=== PATIENT | female | born 1995 | race Caucasian/White ===

== ENCOUNTER 2021-09-03 12:48 | Emergency (ER) | payer OTHER, SELFPAY ==
--- NOTE | ~2021-09-03 | XR_ITS ---
EXAMINATION: XR chest 2V EXAM DATE: 09/03/2021 13:19 INDICATION: Cough, congestion. TECHNIQUE: Frontal and lateral projections of the chest obtained and reviewed. There is no prior doreen dy for comparison. FINDINGS: The lungs are clear. There are no pleural effusions. The cardiomediastinal silhouette is within normal limits. There is no pneumothorax suspected. The bones and soft tissues are unremarkab le. IMPRESSION: Normal chest x-ray exam. Reviewed, dictated and finalized at location A. URE HANGER IMPRESSION: Normal chest x-ray exam.
[2021-09-03 13:04] VITALS: BP 131/93; PULSE 123; RESP 18; TEMP 36.9; O2SAT 98
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
== END 2021-09-03 14:10 | disposition home or self-care (01) ==
PROVIDERS: Emergency Provider Nurse Practitioner Family
DX: J06.9 Acute upper respiratory infection, unspecified (principal); F17.200 Nicotine dependence, unspecified, uncomplicated
CPT/HCPCS: 71046; 87804; 99203; G0463

== ENCOUNTER 2024-03-27 08:31 | Emergency (ER) | payer OTHER, SELFPAY ==
[2024-03-27 08:42] VITALS: BP 135/95; PULSE 105; RESP 18; TEMP 36.3; O2SAT 100
[2024-03-27 08:43] VITALS: BP 135/95; PULSE 105; RESP 18; TEMP 36.3; O2SAT 100
--- NOTE | 2024-03-27 08:54 | ED.DENTAL ---
HPI - Dental/Oral General Chief complaint: Dental/Oral Stated complaint: tooth infection/pain Source: patient and family (significant other ) Mode of arrival: ambulatory Limitations: no limitations History of Present Illness HPI Narrative: 28-year-old female presents to [facility] accompanied by her significant other for complaints of left upper tooth pain for the past 3 days. Patient reports that she broke her left upper tooth approximately 2 weeks ago. Patient has been taking [id number] ibuprofen with little relief. Patient reports history of dental issues but does not have a dentist currently. Patient denies fever, body aches, chills, nausea, vomiting or diarrhea MD Complaint: tooth pain Location: Tooth # (12) Onset (ago): day(s) (3) Exacerbating factors: chewing, cold, heat and drinking fluids Related Data Home Medications Medication Instructions Recorded Confirmed insulin glargine 100 unit/mL (3 20 unit subcut DIRECTED 09/03/21 09/03/21 mL) subcutaneous pen (Basaglar KwikPen U-100 Insulin) insulin NPH isoph U-100 human 100 unit subcut 03/27/24 unit/mL subcutaneous suspension (Humulin N NPH U-100 Insulin (isophane susp)) Allergies Allergy/AdvReac Type Severity Reaction Status Date / Time latex Allergy Mild RASH Verified 03/27/24 08:42 sulfamethoxazole Allergy Hives Verified 03/27/24 08:42 [From Bactrim] trimethoprim [From Bactrim] Allergy Hives Verified 03/27/24 08:42 Review of Systems Constitutional: Constitutional: Denies chills, Denies fatigue, Denies fever(s) and Denies weakness ENT: Denies vertigo, Denies dizziness, Denies epistaxis, Denies nasal congestion and Denies sore throat Comments: left upper tooth pain Cardiovascular: Cardiovascular: Denies chest pain Respiratory: Respiratory: Denies cough, Denies dyspnea and Denies wheezing Gastrointestinal: Gastrointestinal: Denies diarrhea, Denies nausea and Denies vomiting Integumentary/Breasts: Skin/Breast: Denies pruritus and Denies rash Neurologic: Denies syncope, Denies headache(s) and Denies focal weakness PMFSH Comments At time of signature, I agree with nursing past medical, surgical, social and family history. There is no relevant family history pertinent to the presenting complaint. Exam Const: General: healthy appearing and no acute distress Nutritional Appearance: well nourished Orientation/consciousness: patient oriented x3 Limitations: no limitations HENMT: Mouth: Yes lip normal and Yes moist mucous membranes Teeth and gingiva: abnormal tooth and associated gingiva Throat: posterior oropharynx normal and uvula midline Other: broken tooth noted to tooth # 12 with surrounding erythema and swelling noted. No obvious abscess noted. Mild swelling noted to left upper facial cheek Eyes: Conjunctivae: conjunctivae normal Pupils: Equal, round and reactive pupils present Neck: Neck: normal visual inspection Resp: Effort & Inspection: normal respiratory effort and not labored Auscultation: clear to auscultation bilaterally, no crackles, no rales, no rhonchi and no wheezes Cardio: Rate: regular rate Rhythm: regular rhythm Heart sounds: no murmurs Skin: General skin exam: normal color Rashes: no rashes Neuro: General: patient oriented x3 Speech: normal speech Psych: Affect: normal affect Attitude: cooperative Course Course Level of Care: Express Care Visit Vital Signs Vital signs: Vital Signs Temperature 36.3 C L 03/27/24 08:42 Pulse Rate 105 H 03/27/24 08:42 Respiratory Rate 18 03/27/24 08:42 Blood Pressure 135/95 H 03/27/24 08:42 Pulse Oximetry 100 03/27/24 08:42 Oxygen Delivery Room Air 03/27/24 08:42 Temperature 36.3 C L 03/27/24 08:43 Pulse Rate 105 H 03/27/24 08:43 Respiratory Rate 18 03/27/24 08:43 Blood Pressure 135/95 H 03/27/24 08:43 Pulse Oximetry 100 03/27/24 08:43 Oxygen Delivery Room Air 03/27/24 08:43 MDM - Dental
== END 2024-03-27 09:08 | disposition home or self-care (01) ==
PROVIDERS: Emergency Provider Nurse Practitioner Family
DX: K08.89 Other specified disorders of teeth and supporting structures (principal); E10.9 Type 1 diabetes mellitus without complications; F17.200 Nicotine dependence, unspecified, uncomplicated
CPT/HCPCS: 99213; G0463

== ENCOUNTER 2024-09-03 10:40 | Emergency (ER) | payer OTHER, SELFPAY ==
--- OUTSIDE RECORDS SUMMARY | 2024-09-03 10:57 | XMS_ITS | Clinical Summary ---
Author Organization [facility] Address [address] [place] [address] Care Team Providers Care Acid Loader Name Role Phone None, Physician Primary Care Provider Unavailabl e Source Comments [facility],non-owned Affiliates and Associated Physician Practices is amultiple site organization consisting of ambulatory clinics and hospital sitesin [place], [place], [place] and [place]. This disclosure is being madepursuant to the Care Everywhere program and may not contain all information available regarding this patient. Last updated 18.[facility] Allergies Active Allergy Reactions Criticality Noted Date Comments Latex Rash Medium 08/27/2016 Skin Adhesives Urticaria Medium 05/19/2022 Sulfamethoxazole W-Trimethoprim Urticaria Medium 05/14 Medications * Be aware that medications may not be up to date on this document. Alwaysverify current medications with the patient. Medication Sig Dispensed Refills Start Date End Date Status aspirin (Aspirin) 81 MG chew tablet Take 1 (one) tablet by mouth once daily 30 tablet 04/17/2023 Active busPIRone (Buspar) 10 MG tablet Take 1 (one) tablet by mouth 3 times daily 04/16/2023 Active hydrOXYzine HCl (Atarax) 25 MG tablet Take 1 (one) tablet by mouth 4 times daily as needed for Itching 04/16/2023 Active gabapentin (Neurontin) 100 MG capsule Take 2 (two) capsules by mouth 3 times daily 04/16/2023 Active insulin aspart (NovoLOG) pen Inject 0 (zero) Units to 12 (twelve) Units subcutaneously 3 times daily with meals 04/16/2023 Active insulin glargine (Lantus/Semglee) 100 units/mL pen Inject 20 (twenty) Units subcutaneously at bedtime 04/16/2023 Active hydroxyurea (Hydrea) 500 MG capsule Take 2 (two) capsules by mouth once daily 04/17/2023 Active folic acid (Folvite) 1 MG tablet Take 1 (one) tablet by mouth once daily 04/17/2023 Active melatonin 3 MG tablet Take 1 (one) tablet by mouth at bedtime 04/16/2023 Active predniSONE (Deltasone) 10 MG tablet Take 4 tablets daily for 3 days, take 3 tablets daily for 3 days, take 2 tablets daily for 3 days, then take 1 tablet daily for 3 days 0 04/16/2023 Active budesonide-formot jo (Symbicort) 160-4.5 MCG/ACT inhaler Inhale 2 (two) puffs by mouth 2 times daily 04/16/2023 Active albuterol HFA (ProAir HFA) 108 (90 Base) MCG/ACT inhaler Inhale 2 (two) puffs by mouth every 4 hours as needed for Shortness of Breath, Wheezing or Cough 8.5 g 04/16/2023 Active Oxygen Oxygen continuous at 3 L/min via nasal cannula and 3 L with activity. - Estimate length of need (number of months): 1 1 Each 04/16/2023 Active insulin glargine (Lantus/Semglee) 100 units/ml injection Inject 20 (twenty) Units subcutaneously at bedtime for 30 days 5 mL 1 09/16/2023 Active insulin aspart (NovoLOG FLEXPEN) pen Inject 12 (twelve) Units subcutaneously 3 times daily before meals 5 mL 1 09/16/2023 Active Active Problems Patient Care Coordination No te Formatting of this note migh t be different from the original. [employer] [place] [employer] form completed. Diapers given. 12/29/2019 Problem Noted Date Diagnosed Date Respiratory distress 04/01/2023 SOB (shortness of breath) 04/01/2023 Hypoxia 04/01/2023 Pneumonia of both lungs due to infectious organism, unspecified part of lung 04/01/2023 Preeclampsia, severe 02/15/2020 Swelling of lower extremity during in third trimester 02/13/2020 Nephropathy 01/18/2020 Chronic hypertension with superimposed pre-eclam psia 01/18/2020 Stage 1 chronic kidney disease 01/18/2020 Hx of preeclampsia, prior , currently p regnant 09/20/2019 Type 1 diabetes mellitus in 08/26/2016 Overview (03/18/2022): HgA1c: 11.8% 03/18/22 CMP: creatinine: 1.14, ALT/AST: /, glucose: 436 Protein/creatinine ratio: 1.34 Supervision of high-risk of young radha igravida 08/26/2016 Overview (03/25/2022): Dating: PNL: B+/Imm/-/-, HIV NR Pap: GC/CT: neg/neg. Scanned into media. Urine cx: neg UDS: H/H/P: 12.5/36.3/362 HgbE: Genetics: CF screen negative Anatomy US: Flu shot: LFT's: , 03/2022 HCV: NR Third trimester: GCT: H/H/P: RPR: HIV: Tdap: GBS: Poor growth Resolved Problems Problem Noted Date Diagnosed Date Resolved Date High risk teen 08/26/2016 Preeclampsia, severe 020 Forceps delivery 08/31/2019 Immunizations Name Administration Dates Next Due [employer] BIVALENT 12Y+ 30mcg/0.3ML 2 DTAP, HISTORIC VACCINE 01/08/2002,2000,03/04/2000,10/03,06/19/1999,1997 DTAP/IPV 02/07/2002, 0,10/04/1999,06/19 DTaP VACCINE IM (6wk-6yrs) 01/08/2002,,03/04/2000,10/03,06/19/1999,1997 FLU VACCINE TRI IIV3 SPLIT P F IM (FLUVIRIN) 04/08/2013 HEP A PED/ADULT VACCINE 05/23/2008 HEP B VACCINE, PED/ADOL 06/01/2000,03/10/2000, HIB 01/01/2001, 0,10/04/1999,06/19 HPV VACCINE 05/23/2008 INFLUENZA VACCINE 07/25/2015, 3,06/04/2010,03/28,05/23/2008 INFLUENZA VACCINE, QUADR. (F LUZONE; FLULAVAL; FLUARIX; AFLURIA QUADRIVALENT; 6MO+), 0.5 ML (IIV4) 04/02/2023,06/23/2022,08/30/2019 INFLUENZA VACCINE, RECOM-PEACOCK, TRIV. (FLUBLOCK TRIVALENT; 18Y+) (RIV3) 07/25/2015,06/04/2010 MENINGOCOCCAL CONJUGATE (MCV4P) 05/23/2008 MMR 05/17/2022(Deferred: - patient is immune),02/16/2020(Deferred: Patient Condition - pt is rubella immune),02/07/2002,06/19/1999 MMR/VARICELLA 02/07/2002,06/19/1999 PNEUMOCOCCAL PCV7 CONJ, PEDS 06/28/2002 POLIO IPV 02/07/2002, 0,10/04/1999,06/19 TDAP (7yrs+) 05/18/2022(Deferred: Patient Refused),02/16/2020(Deferred: See Comments - received during ),01/04/2020,05/23/2008 VARICELLA 05/23/2008,06/01/2000 Family History Medical History Relation Name Comments Arthritis Maternal Grandfather Hypertension Maternal Grandfather Arthritis Maternal Grandmother Hypertension Maternal Grandmother Toxemia Mother Hypertension Paternal Grandfather Hypertension Paternal Grandmother Labor Sister Relation Name Status Comments Maternal Grandfather Maternal Grandmother Mother Paternal Grandfather Paternal Grandmother Sister Social History Tobacco Use Types Packs/Day Years Used Date Smoking Tobacco: Every Day Cigarettes 0.5 8 Started: 07/29/2008; Last attempted to quit: 07/29/2016 Smokeless Tobacco: Never Tobacco Cessation:Ready to Q uit: Not Asked; Counseling Given: Not Answered Alcohol Use Standard Drinks/Week Comments No 0 (1 standard drink = 0.6 oz pur e alcohol) AUDIT-C Answer Date Recorded Q1: How often do you have a drink containing alc ohol? Never 04/01/2023 Average Number of Drinks Not on file 023 Frequency of Binge Drinking Not on file 03/14 Overall Financial Resource Strain (CARDIA) Answe r Date Recorded How hard is it for you to pa y for the very basics like food, housing, medical care, and heating? Patient declined 05/14/2022 Hunger Vital Sign Answer Date Recorded Within the past 12 months, y ou worried that your food would run out before you got the money to buy more. Never true 04/01/20 23 Within the past 12 months, t he food you bought just didn't last and you didn't have money to get more. Never true 04/01/2023 PRAPARE - Transportation Answer Date Re corded In the past 12 months, has l ack of transportation kept you from medical appointments or from getting medications? Patient declined 05/14/2022 In the past 12 months, has l ack of transportation kept you from meetings, work, or from getting things needed for daily living? Patient declined 05/14/2022 Housing Stability Vital Sign Answer Michael e Recorded In the last 12 months, was t here a time when you were not able to pay the mortgage or rent on time? Patient refused 05/14/20 22 Number of Places Lived in the Last Year Not on f ile 05/14/2022 In the last 12 months, was t here a time when you did not have a steady place to sleep or slept in a fdc (including now)? Patient refused 05/14/2022 [place] Depression Scale Answer Date Recorded RETIRED: Total Score 0 06/23/2022 Last EPDS Self Harm Result Not on file 06/23 Sex and Gender Information Value Date Recorded Sex Assigned at Not on file Gender Identity Not on file Sexual Orientation Not on file Last Filed Vital Signs Vital Sign Reading Time Taken Comments Blood Pressure 131/95 09/16/2023 3:00 PM ESCROW OFFICER Pulse 100 09/16/2023 3:04 PM ESCROW OFFICER Temperature 36.6 C (97.8 F) 09/16/2023 11:57 AM ESCROW OFFICER Respiratory Rate 20 09/16/2023 3:04 PM ESCROW OFFICER Oxygen Saturation 100% 09/16/2023 3:04 PM ESCROW OFFICER Inhaled Oxygen Concentration 21% 04/16/2023 1 1:20 AM CDT Weight 64 kg (141 lb) 04/15/2023 4:00 AM CDT Height 162.6 cm (5' 4 ) 04/03/2023 1:57 PM CDT Body Mass Index 24.2 04/03/2023 1:57 PM CDT Plan of Treatment Health Maintenance Due Date Last Done Comments PNEUMOCOCCAL VACCINE (2 of 2 - PPSV23) 2003 06/28/2002 HPV VACCINE (2 - 2-dose series) 11/20/2008 05/23/2008 PAP SMEAR 08/30/2022 08/30/2019 COVID-19 VACCINE ( season) 2024 06/23/2022, 03/12/2021, 02/18/2021 INFLUENZA VACCINE (#1) 2024 3, 06/23/2022, 08/30/2019, Additional history exists DEPRESSION SCREENING 07/13/2024 DTAP/TDAP/TD VACCINES (8 - Td or Tdap) 01/03/2030 01/04/2020, 05/23/2008, 02/07/2002, Additional history exists ZOSTER VACCINE (1 of 2) 2047 HEPATITIS B VACCINE Completed 06/01/2000, 03/10/2000, 10/04/1999 HIB VACCINE Completed 01/01/2001, 02/11, 10/04/1999, Additional history exists MENINGOCOCCAL VACCINE Aged Out 05/23/2008 No severino nola eligible based on patient's age to complete this topic HEPATITIS C SCREENING Completed 03/18/2022, 020 HIV SCREENING Completed 03/18/2022, 01/04/2020 MENINGOCOCCAL (Group B) VACCINE Aged Out No longer eligible based on patient's age to complete this topic Procedures Procedure Name Priority Date/Time Associated Diagnosis Comments HEPATITIS C ANTIBODY Routine 03/18/2022 1:59 PM CDT Supervision of high-risk of young multigravida (HCC) HIV-1 HIV-2 ANTIBODY + HIV P24 AG PANEL Routine 03/18/2022 1:59 PM CDT Supervision of high-risk of young multigravida (HCC) PAP THINPREP Routine 08/30/2019 2:06 PM ESCROW OFFICER High risk teen in first trimester (HCC) from Last 3 Months or Most Recently Relevant to Health Maintenance Results * HIV-1 HIV-2 ANTIBODY + HIV P24 AG PANEL (03/18/2022 1:59 PM CDT) HIV1/2 Ab + P24 Ag Non Reactive Non Reactive 03/18/2022 3:26 PM CDT [facility] Blood BLOOD SPECIMEN / Unknown Venipuncture / Unknown 03/18/2022 1:59 PM CDT 03/18/2022 2:12 PM CDT Narrative [facility] - 03/18/2022 3:26 PM CDT No Laboratory evidence of HIV infection. Sharon Beltran [facility] - CHEMISTRY ORDERABLES Performing Organization Address City/[facility]/ZIP Co de Phone Number [facility] [address] [place], [place] [id number] * HEPATITIS C ANTIBODY (03/18/2022 1:59 PM CDT) Pathologist [facility] HCV Antibody Screen Non Reactive Non Reactive 03/18/2022 3:25 PM CDT [facility] Blood BLOOD SPECIMEN / Unknown Venipuncture / Unknown 03/18/2022 1:59 PM CDT 03/18/2022 2:12 PM CDT Narrative [facility] - 03/18/2022 3:25 PM CDT Non Reactive - Antibodies to Hepatitis C virus (HCV) were not detected, result does not exclude early acute HCV infection. Sharon Beltran [facility] - CHEMISTRY ORDERABLES Performing Organization Address City/[facility]/ZIP Co de Phone Number [facility] [address] [place] [id number] * PAP THINPREP (08/30/2019 2:06 PM ESCROW OFFICER) Diagnosis Comment 09/02/2019 11:08 AM ESCROW OFFICER [facility] ([facility]) Comment:NEGATIVE FOR INTRAEP ITHELIAL LESION OR MALIGNANCY. Specimen Adequacy Comment 020 11:08 AM ESCROW OFFICER [facility] ([facility]) Comment:Satisfactory for adriana luation. No endocervical component is identified. Performed by Comment 09/02/2019 11:08 AM ESCROW OFFICER [facility] ([facility]) Comment:Lamberto Aleman totechnologist Comment . 09/02/2019 11:08 AM ESCROW OFFICER [facility] ([facility]) Note Comment 09/02/2019 11:08 AM ESCROW OFFICER [facility] ([facility]) Comment: The Pap smear is a screening test designed to aid in the detection of premalignant and malignant conditions of the uterine cervix. It is not a diagnostic procedure and should not be used as the sole means of detecting cervical cancer. Both false-positive and false-negative reports do occur. Pathology/Cytolo gy ENTIRE ENDOCERVIX / Unknown Collection / Unknown 08/30/2019 2:06 PM ESCROW OFFICER 08/30/2019 2:32 PM ESCROW OFFICER Narrative [facility] ([facility]) - 09/02/2019 11:08 AM ESCROW OFFICER Performed at: 01 - [address] [id number] Credit Card Clerk: Diane Rodriguez MD, Phone: [phone] Specimen Comment: Source.............Endocervix Specimen Comment: No. of containers..01 ThinPrep Vial Genevieve Locke MD LAB - PATHOLOGY/CYTO LOGY ORDERABLES [facility] ([facility]) [address] [place] [address] from Last 3 Months or Most Recently Relevant to Health Maintenance Additional Health Concerns Infection Onset Date Last Indicated MRSA Hx Comment:Nasal; 04/01/2023 04/02/2023 Advance Directives * Full Code (Latest Code Status on File) Date Activated Date Inactivated Comments 04/01/2023 3:14 PM 04/17/2023 6:59 PM * Full Code Date Activated Date Inactivated Comments 2022 3:04 PM 05/17/2022 6:28 AM * Full Code Date Activated Date Inactivated Comments 05/14/2022 9:32 PM 05/15/2022 4:57 PM * Full Code Date Activated Date Inactivated Comments 05/14/2022 6:16 PM 05/14/2022 9:32 PM * Full Code Date Activated Date Inactivated Comments 02/15/2020 4:01 AM 02/17/2020 6:43 PM Care Teams Acid Loader Relationship Specialty Start Date End Date None, Physician [address] [place] [address] PCP - General 04/01/23
--- OUTSIDE RECORDS SUMMARY | 2024-09-03 10:57 | XMS_ITS | Referral Summary ---
Author Organization [facility] Address [address] [place] [address] Care Team Providers Care Basic Sciences Professor Name Role Phone Unknown, Notinfile Primary Care Provider Unavail able Encounters Date Type Department Care Team Description 07/26/2024 Telephone [facility] Endocrinology at [facility] [address] [place] [phone] Kacey Liu MD from Last 3 Months Allergies Active Allergy Reactions Criticality Noted Date Comments Adhesive Urticaria Medium 05/19/2022 Latex Hives,Rash Medium 08/27/2016 Sulfamethoxazole-Trimethoprim Hives,Unknown,Urticaria Medi um 06/05/2019 Medications ferrous sulfate 325 mg (65 mg of elemental iron) tabletIndicatio ns:Iron Deficiency Anemia Take 1 tablet (325 mg total) by mouth 2 (two) times a day Active aspirin 81 mg enteric coated tablet Take 1 tablet (81 mg total) by mouth daily Active ARIPiprazole (ABILIFY) 5 mg tablet Take 1 tablet (5 mg total) by mouth daily Active buPROPion XL (WELLBUTRIN XL) 150 mg 24 hr tablet Take 1 tablet (150 mg total) by mouth daily Active naproxen (NAPROSYN) 500 mg tablet Take 1 tablet (500 mg total) by mouth 2 (two) times a day with meals 30 tablet 10/24/2023 Active blood-glucose meter kit 1 each once for 1 dose 1 kit 05/14/2024 Active lancing device with lancets kit 1 each 4 (four) times a day before meals and nightly 1 kit 1 05/14/2024 Active blood glucose diagnostic strip 100 each by other route as directed 100 each 1 05/14/2024 Active doxycycline (VIBRAMYCIN) 100 mg capsuleIndicati ons:Skin/Soft Tissue Infection Take 1 tablet/capsul e (100 mg total) by mouth 2 (two) times a day 20 capsule 05/14/2024 Active insulin glargine 100 unit/mL (3 mL) pen for injection Inject 30 Units under the skin 2 (two) times a day 3 mL 05/24/2024 Active insulin lispro (HumaLOG, ADMELOG) 100 unit/mL pen for injection Inject 1 Units under the skin 3 (three) times a day with meals (plus blood glucose mg/dL 150-199: 1 unit, 200-249: 2 units, 250-299: 3 units, 300-349: 4 units, 350 or greater: 5 units. Notify provider for blood glucose greater than 299 mg/dL. Max daily dose 10) Refer to After Visit Summary for Sliding Scale Insulin Instructions. 15 mL 05/24/2024 Active Active Problems Problem Noted Date Diagnosed Date Hyperglycemia 10/01/2023 Hypoxia 04/01/2023 Pneumonia of both lungs due to infectious organi sm 04/01/2023 Respiratory distress 04/01/2023 SOB (shortness of breath) 04/01/2023 Moderate malnutrition 03/28/2023 Diabetic ketoacidosis with c yariel associated with type 1 diabetes mellitus ([facility]) 03/27/2023 Methamphetamine use ([facility]) 07/24/2022 Anxiety and depression 03/28/2020 Stage 1 chronic kidney disease 01/18/2020 Chronic hypertension affecting 020 Type 1 diabetes mellitus with hyperglycemia 03/2018 Supervision of high-risk of young radha igravida 08/26/2016 Overview (05/14/2024): Dating: PNL: B+/Imm/-/-, HIV NR Pap: GC/CT: neg/neg. Scanned into media. Urine cx: neg UDS: H/H/P: 12.5/36.3/362 HgbE: Genetics: CF screen negative Anatomy US: Flu shot: LFT's: , 03/2022 HCV: NR Third trimester: GCT: H/H/P: RPR: HIV: Tdap: GBS: Immunizations Immunization Administration Dates Next Due DTaP 01/08/2002, 1,03/04/2000,10/03,06/19/1999,1997 DTaP / IPV 02/07/2002, 0,10/04/1999,06/19 DTaP, Unspecified 01/08/2002, 1,03/04/2000,10/03,06/19/1999,1997 HPV, Unspecified 05/23/2008 Hep A, Unspecified 05/23/2008 Hep B, Adolescent or Pediatric 06/01/2000,1999,10/04/1999 HiB 01/01/2001, 0,10/04/1999,06/19 IPV 02/07/2002, 0,10/04/1999,06/19 Influenza, Quadrivalent, Spl it, Preservative Free, Intramuscular 04/02/2023,06/23/2022,08/30/2019 Influenza, Trivalent, Adjuva nted, Intramuscular 07/25/2015,06/04/2010 Influenza, Trivalent, Preser vative Free, Intramuscular 04/08/2013 Influenza, Unspecified 03/28/2009,05/23/2008 MMR 02/07/2002,06/19/1999 MMRV 02/07/2002,06/19/1999 Meningococcal MCV4, Unspecified 05/23/2008 Meningococcal MCV4P (Menactra) 05/23/2008 Pfizer Sars-Cov-2 Bivalent V accination (12+ YRS) 06/23/2022 Pneumococcal Conjugate 7-Valent 06/28/2002 Tdap 01/04/2020,05/23/2008 Varicella 05/23/2008,06/01/2000 Social History Tobacco Use Types Packs/Day Years Used Date Smoking Tobacco: Unknown Tobacco Cessation:Counseling Given: Not Answered PRAPARE - Transportation Answer Date Re corded In the past 12 months, has l ack of transportation kept you from medical appointments or from getting medications? No 03/13 In the past 12 months, has l ack of transportation kept you from meetings, work, or from getting things needed for daily living? No 03/27/2023 Personal Safety Answer Date Recorded Have you ever been in or are you currently in a harmful physical or emotional relationship or is someone making you feel afraid or unsafe? Denies 05/24/2024 Comments Unknown Sex and Gender Information Value Date Recorded Sex Assigned at Not on file Legal Sex Female 7:00 PM CDT Gender Identity Not on file Sexual Orientation Not on file Last Filed Vital Signs Vital Sign Reading Time Taken Comments Blood Pressure 128/79 05/24/2024 3:40 PM BUSHLER Pulse 100 05/24/2024 3:40 PM BUSHLER Temperature 36.8 C (98.3 F) 05/24/2024 1:39 PM BUSHLER Respiratory Rate 18 05/24/2024 3:40 PM BUSHLER Oxygen Saturation 100% 05/24/2024 3:40 PM BUSHLER Inhaled Oxygen Concentration - - Weight 59.9 kg (132 lb) 05/24/2024 1:39 PM BUSHLER Height 162.6 cm (5' 4 ) 05/24/2024 1:39 PM BUSHLER Body Mass Index 22.66 05/24/2024 1:39 PM BUSHLER Plan of Treatment Not on file Procedures Procedure Name Priority Date/Time Associated Diagnosis Comments EGFR STAT 05/14/2024 3:26 PM CDT HEMOGLOBIN A1C Routine Gen Lab 04/27/2023 7:18 AM CDT TSH Routine Gen Lab 04/27/2023 7:18 AM CDT from Last 3 Months or Most Recently Relevant to Health Maintenance Results * eGFR (05/14/2024 3:26 PM CDT) eGFR 90 >=60 mL/min/1. 73 m2 Comment: Interpretive Data Reference Interval Normal >/= 90 mL/min/1.73m2 Mildly decreased* 60 - 89 mL/min/1.73m2 Mildly to moderately decreased 45 - 59 mL/min/1.73m2 Moderately to severely decreased 30 - 44 mL/min/1.73m2 Severely decreased 15 - 29 mL/min/1.73m2 Kidney Failure < 15 mL/min/1.73m2 *Relative to young adult level Estimated glomerular filtration rate is determined by the 2020 CKD-EPI equation recommended by the National Kidney Foundation (A Unifying Approach to GFR Estimation: Recommendations of the NKF-ASK Task Force on Reassessing the Inclusion of Race in Diagnosing Kidney Disease, JASN 202). The CKD-EPI equation should not be used for patients with unstable renal function and has not been validated in children and those over 70. Current interpretive data was last reviewed 2021. Blood 05/14/2024 3:26 PM CDT 05/14/2024 3:32 PM CDT Mariano Nunez MD LAB BLOOD ORDERABLES Final Result Performing Organization Address City/[facility]/ZIP Co de Phone Number [facility] [address] [facility] [place] [address] * TSH (04/27/2023 7:18 AM CDT) Thyroid Stimulating Hormone 2.44 0.30 - 4.20 mcIUnit/mL [facility] Blood 04/27/2023 7:18 AM CDT 04/27/2023 10:06 AM CDT Rhoda Tapia MD LAB BLOOD ORDERABLES Final Resu lt Performing Organization Address City/[facility]/ZIP Co de Phone Number [facility] [place] [address] * (ABNORMAL) Hemoglobin A1c (04/27/2023 7:18 AM CDT) Hgb A1C 8.8(H) 4.0 - 5.6 % [facility] Estimated Average Glucose 206 mg/dL [facility] Comment: The ADA recommends reporting an estimated Average Glucose (eAG) with all Hemoglobin A1c results using the equation derived from a study of 507 normal and diabetic adults. Minority populations were underrepresented and children were not included. (Diabetes Care 2020; 43(S1): S66-S76). The eAG is not equivalent to a fasting glucose. Blood 04/27/2023 7:18 AM CDT 04/27/2023 10:06 AM CDT Rhoda Tapia MD LAB BLOOD ORDERABLES Final Resu lt [facility] [place] [address] from Last 3 Months or Most Recently Relevant to Health Maintenance Additional Health Concerns Infection Onset Date Last Indicated MRSA 05/14/2024 05/14/2024 Insurance [facility] Advance Directives For more information, please contact: [phone] * Full Code (Latest Code Status on File) Date Activated Date Inactivated Comments 03/27/2023 6:22 AM 03/31/2023 6:58 PM Care Teams Basic Sciences Professor Relationship Specialty Start Date End Date Unknown, Notinfile PCP - General 03/29/22
--- OUTSIDE RECORDS SUMMARY | 2024-09-03 10:57 | XMS_ITS | Clinical Summary ---
Author Organization [facility] Address [address] [place] [address] Care Team Providers Care Math Coach Name Role Phone None, Provider Primary Care Provider Unavaila ble Allergies Active Allergy Reactions Criticality Noted Date Comments Latex Rash Medium 08/27/2016 Sulfamethoxazole-Trimethoprim Hives,Unknown Medium Medications Lancets (ONETOUCH DELICA PLUS [id number]) [facility] 08/25/19 20 Active ONETOUCH VERIO test strip 08/26/19 Active BD PEN NEEDLE MARLON U/F 32G X 4 MM [facility] 08/30/19 20 Active Continuous Blood Gluc Transmit (DEXCOM G6 TRANSMITTER) [facility] 08/31/19 20 Active Blood Glucose Monitoring Suppl (ONETOUCH VERIO FLEX SYSTEM) w/Device Kit 1 kit by Does not apply route. 11/09/19 20 Active fluticasone-salme terol (ADVAIR DISKUS) 100-50 MCG/ACT inhaler Inhale 1 puff into the lungs 2 (two) times daily. Active GLUCAGON EMERGENCY 1 MG injection Inject 1 mg into the muscle once as needed (hypoglycemia). 1 kit 10/04/19 Active Blood Glucose Monitoring Suppl (D-CARE GLUCOMETER) w/Device KitIndications:Ty pe 1 diabetes mellitus with hyperglycemia ([facility] HHS/HCC) 1 each by Does not apply route 4 (four) times daily. 1 kit 10/04/19 24 Active Lancets Mis. KitIndications:Ty pe 1 diabetes mellitus with hyperglycemia ([facility] H[facility]) 1 each by Does not apply route 4 (four) times daily. 1 kit 10/04/19 Active Insulin Syringe-Needle U-100 30G X 1/2 0.5 ML MiscIndications:T ype 1 diabetes mellitus with hyperglycemia ([facility]) 1 each by Does not apply route 4 (four) times daily. 100 each 10/04/19 Active Glucose Blood (BLOOD GLUCOSE TEST STRIPS 333) StripIndications: Type 1 diabetes mellitus with hyperglycemia ([facility]) 1 each by In Vitro route 4 (four) times daily. 100 strip 10/04/19 Active insulin lispro (HUMALOG) 100 UNIT/ML injection (VIAL) Inject 1-8 Units into the skin see administration instructions. Three times daily with meals and at bedtime for elevated BG BG 170-220 admin 4 units BG 220-300 admin 8 units 3 mL 10/04/19 Active insulin NPH (HUMULIN N) 100 UNIT/ML injection Inject 12 Units into the skin 2 (two) times daily before meals. 10 mL 10/04/19 Active Active Problems Problem Noted Date Diagnosed Date Hyperglycemia 10/01/2023 Hypoxia 04/01/2023 10/01/2023 Pneumonia of both lungs due to infectious organism, unspecified part of lung 04/01/2023 10/01/2023 Respiratory distress 04/01/2023 10/01/2023 Moderate malnutrition ([facility]) 03/28/20 23 10/01/2023 Diabetic ketoacidosis with c yariel associated with type 1 diabetes mellitus ([facility]) 03/27/2023 10/01/2023 Methamphetamine use ([facility]) 07/24/2022 10/01/2023 Anxiety and depression 03/28/2020 Chronic hypertension affecting ([facility]) 01/18/2020 Nephropathy 01/18/2020 Stage 1 chronic kidney disease 01/18/2020 Diabetes type 1, uncontrolled 08/21/2017 Type 1 diabetes mellitus wit h hyperglycemia ([facility]) 08/21/2017 10/01/2023 Supervision of high-risk ([facility]) Type 1 diabetes mellitus in ([facility]) 08/26/2016 Resolved Problems Problem Noted Date Diagnosed Date Resolved Date Poor growth 03/28/2020 03/28/2020 Swelling of lower extremity during in third trimester ([facility]) 02/13/2020 03/28/2020 Hx of preeclampsia, prior pr egnancy, currently ([facility]) 09/20/2019 03/28/2020 Chronic hypertension with max perimposed pre-eclampsia ([facility]) 12/26/2018 03/28/2020 Forceps delivery ([facility]) 12/26/2018 0 03/28/2020 Keloid of skin 08/13/2017 03/28/2020 Benign skin growth of ear 08/13/2017 Diabetes ([facility]) 06/22/2017 0 03/28/2020 Encounter for preventive health examination 03/26/2017 03/23/2020 Immunizations Name Administration Dates Next Due Dtap (Generic) 01/08/2002, 1,03/04/2000,10/04/1999 ,06/19/1999,1997 HPV 05/23/2008 Hepatitis A (Generic) 05/23/2008 Hepatitis B Pediatric 06/01/2000,03/10/2000,09/11 Hib (Generic) 01/01/2001,03/10/2000,10/04/1999 ,06/19/1998 Influenza (Generic) 04/08/2013,03/28/2009,2007 Influenza Adult (Generic) 08/30/2019,07/25/2015, 06/04/2010 MMR (Generic) 02/07/2002,06/19/1999 Meningococcal Vac A,C,Y,W-135 Sc 05/23/2008 Pneumococcal (Prevnar 7) 06/28/2002 Polio Ipv (Generic) 02/07/2002,03/10/2000,1999,06/19/1999 Tdap (Generic) 01/04/2020,05/23/2008 Varicella Vaccine 05/23/2008,06/01/2000 Family History Medical History Relation Comments bipolar Father bipolar Mother bipolar Sister Relation Status Comments Father Alive Mother Alive Sister Alive Social History Tobacco Use Types Packs/Day Years Used Date Smoking Tobacco: Every Day Cigarettes Smokeless Tobacco: Current Tobacco Cessation:Ready to Q uit: No; Counseling Given: No Alcohol Use Standard Drinks/Week Comments Not Currently 0 (1 standard drink = 0.6 oz pur e alcohol) [facility] Utilities Answer Date Recorded In the past 12 months has e [employer], [employer], oil, or water [employer] threatened to shut off services in your home? Patient unable to answer 10/01/2023 Humiliation, Afraid, Rape, a nd Kick questionnaire Answer Date Recorded Within the last year, have y ou been afraid of your partner or ex-partner? Patient unable to answer 10/01/2023 Within the last year, have y ou been humiliated or emotionally abused in other ways by your partner or ex-partner? Patient unable to answer 10/01/2023 Within the last year, have y ou been kicked, hit, slapped, or otherwise physically hurt by your partner or ex-partner? Patient unable to answer 10/01/2023 Within the last year, have y ou been raped or forced to have any kind of sexual activity by your partner or ex-partner? Patient unable to answer 10/01/2023 Social Connection and Isolation Panel [NHANES] A nswer Date Recorded In a typical week, how many times do you talk on the phone with family, friends, or neighbors? Patient unable to answer 10/01/2023 How often do you get togethe r with friends or relatives? Patient unable to answer 10/01/2023 How often do you attend [facility] or voodoo services? Patient unable to answer 10/01/2023 Do you belong to any clubs o r organizations such as quaker groups, unions, fraternal or athletic groups, or school groups? Patient unable to answer 10/01/2023 How often do you attend meet ings of the clubs or organizations you belong to? Patient unable to answer 10/01/2023 Are you , , di vorced, , never , or living with a partner? Patient unable to answer 10/01/2023 AUDIT-C Answer Date Recorded Q1: How often do you have a drink containing alcohol? Never 10/01/2023 Q2: How many drinks containi ng alcohol do you have on a typical day when you are drinking? Patient does not drink Q3: How often do you have si x or more drinks on one occasion? Never 10/01/2023 Overall Financial Resource Strain (CARDIA) Answe r Date Recorded How hard is it for you to pa y for the very basics like food, housing, medical care, and heating? Somewhat hard 10/01/2023 PHQ-2 Answer Date Recorded Patient Health Questionnaire-2 Score 0 10/01/2023 [facility] [place] of Occupat ional Health - Occupational Stress Questionnaire Answer Date Recorded Do you feel stress - tense, restless, nervous, or anxious, or unable to sleep at night because your mind is troubled all the time - these days? Patient unable to answer 10/01/2023 Exercise Vital Sign Answer Date Recorde d On average, how many days pe r week do you engage in moderate to strenuous exercise (like a brisk walk)? Patient unable to answer 10/01/2023 On average, how many minutes do you engage in exercise at this level? Patient unable to answer 10/01/2023 Hunger Vital Sign Answer Date Recorded Within the past 12 months, y ou worried that your food would run out before you got the money to buy more. Patient unable to answer 10/01/2023 Within the past 12 months, t he food you bought just didn't last and you didn't have money to get more. Patient unable to answer 10/01/2023 PRAPARE - Transportation Answer Date Re corded In the past 12 months, has l ack of transportation kept you from medical appointments or from getting medications? Patient unable to answer 10/01/2023 In the past 12 months, has l ack of transportation kept you from meetings, work, or from getting things needed for daily living? Patient unable to answer 10/01/2023 Housing Stability Vital Sign Answer Michael e Recorded In the last 12 months, was t here a time when you were not able to pay the mortgage or rent on time? Patient unable to answer 10/01/2023 In the last 12 months, how m any places have you lived? 0 10/01/2023 In the last 12 months, was t here a time when you did not have a steady place to sleep or slept in a usp (including now)? Patient unable to answer 10/01/2023 Comments No Sex and Gender Information Value Date Recorded Sex Assigned at Not on file Legal Sex Female 2:53 PM CDT Gender Identity Not on file Sexual Orientation Not on file Last Filed Vital Signs Vital Sign Reading Time Taken Comments Blood Pressure 124/85 10/04/2023 11:00 AM CDT Pulse 112 10/04/2023 11:00 AM CDT Temperature 36.4 C (97.6 F) 10/04/2023 11:00 AM CDT Respiratory Rate 18 10/04/2023 11:00 AM CDT Oxygen Saturation 98% 10/04/2023 11:00 AM CDT Inhaled Oxygen Concentration - - Weight 58.4 kg (128 lb 12 oz) 10/04/2023 4:30 AM CDT Height 162.6 cm (5' 4 ) 10/01/2023 12:54 AM CDT Body Mass Index 22.1 10/01/2023 12:54 AM CDT Plan of Treatment Health Maintenance Due Date Last Done Comments Kidney Health Evaluation 1997 Lipid Panel 1997 Annual Physical 2000 Pneumococcal Vaccine: Pediatrics (0 to 5 Years) and At-Risk Patients (6 to 64 Years) (1 of 2 - PCV) 2003 06/28/2002 HPV Vaccines (2 - 2-dose series) 11/20/2008 05/23/2008 Diabetes: Retinopathy Eye Exam 2015 Cervical Cancer Screening Pap Smear (Age 21 to 29) Every 3 Years 08/30/2022 08/30/2019, 08/30/2019, 08/30/2019 Cervical Cancer Screening 08/30/2022 Hemoglobin A1C 01/02/2024 10/02/2023, 09/11, 04/27/2023, Additional history exists COVID-19 Vaccine ( season) 2024 06/23/2022, 03/12/2021, 02/18/2021 Influenza Adult (#1) 2024 04/02/2023, 06/23/2022, 08/30/2019, Additional history exists DTaP, Tdap and Td Vaccines (8 - Td or Tdap) 01/03/2030 01/04/2020, 05/23/2008, 01/08/2002, Additional history exists Hepatitis B Vaccines Completed 06/01/2000, 03/10/2000, 10/04/1999 Meningococcal Vaccine Aged Out 05/23/2008 No severino nola eligible based on patient's age to complete this topic Hepatitis C Completed 08/30/2019, 08/30/2019 Meningococcal B Vaccine Aged Out No l onger eligible based on patient's age to complete this topic RSV Immunizations Under 20 Months Aged Out No longer eligible based on patient's age to complete this topic Procedures Procedure Name Priority Date/Time Associated Diagnosis Comments HEMOGLOBIN, GLYCOSYLATED Routine 10/02/2023 5:40 AM CDT OUTSIDE CYTOPATH CERV/VAG INTERPRET (PAP) (SCAN ORDER) Routine 08/30/2019 from Last 3 Months or Most Recently Relevant to Health Maintenance Results * (ABNORMAL) HEMOGLOBIN, GLYCOSYLATED (10/02/2023 5:40 AM CDT) HGB A1C 16.3(H) <5.7 % 10/02/2023 10:45 AM CDT [facility] Comment: INCREASED RISK OF DIABETES <5.7% NON-DIABETES 5.7-6.4% INCREASED RISK FOR FUTURE DIABETES > OR = 6.5 CONSISTENT WITH DIABETES STANDARDS OF MEDICAL CARE IN DIABETES-2010 DIABETES CARE, 33(SUPP 1): S1-S61,2010 ESTIMATED AVG GLUCOSE 421 mg/dL 10/02/2023 10:45 AM CDT [facility] 10/02/2023 5:40 AM CDT us Estela Chao CHAR HOUSE SUPERVISOR LABORATORY Final Result [facility] [address] [place] [address], * PAP SMEAR (08/30/2019) 08/30/2019 us Documents Scanned SCANNING Final Result [facility] from Last 3 Months or Most Recently Relevant to Health Maintenance Insurance [employer] Advance Directives * Full Code (Latest Code Status on File) Date Activated Date Inactivated Comments 10/01/2023 3:17 AM 10/04/2023 2:06 PM Care Teams Math Coach Relationship Specialty Start Date End Date None, Provider, MD PCP - General UNKNOWN PHYSICIAN SPECIALTY 03/31/23
--- OUTSIDE RECORDS SUMMARY | 2024-09-03 10:57 | XMS_ITS | Encounter Summary ---
Author Organization [facility] Health Address [address] [place] [address] Care Team Providers Care Handicraft Or Hobby Shop Manager Name Role Phone None, Physician Primary Care Provider Unavailabl e Encounter Details Date Type Department Care Team (Late st Contact Info) Description 04/10/2023 [facility] Outpatient Visit [facility] Health Cancer Care [address] [place] [phone] [place] [id number] [place] [phone] Social History Tobacco Use Types Packs/Day Years Used Date Smoking Tobacco: Every Day Cigarettes 0.5 8 Started: 07/29/2008; Last attempted to quit: 07/29/2016 Smokeless Tobacco: Never Alcohol Use Standard Drinks/Week Comments No 0 [...] place to sleep or slept in a assisted (including now)? Patient refused 05/14/2022 [place] Depression Scale Answer Date Recorded RETIRED: Total Score 0 06/23/2022 Last EPDS Self Harm Result Not on file 06/23 Sex and Gender Information Value Date Recorded Sex Assigned at Not on file Gender Identity Not on file Sexual Orientation Not on file documented as of this encounter Functional Status Functional Status Response Date of Assess ment Is person deaf or have serious hearing difficult y? No 04/01/2023 Is person blind or have serious difficulty seein g? No 04/01/2023 Does person have serious dif ficulty walking/climbing stairs? No 04/01/2023 Does person have difficulty dressing/bathing? No 04/01/2023 Does person have difficulty doing errands alone? No 04/01/2023 Cognitive Status Response Date of Assessm ent Does person have difficulty concentrating/remembering/making decisions? No 04/01/2023 documented as of this encounter Plan of Treatment Not on file documented as of this encounter Visit Diagnoses Not on filedocumented in this encounter Additional Health Concerns Infection Onset Date Last Indicated Resolved Time MRSA Hx Comment:Nasal; 04/01/2023 04/02/2023 documented as of this encounter Care Teams Handicraft Or Hobby Shop Manager Relationship Specialty Start Date End Date None, Physician [address] [place] [address] PCP - General 04/01/23 documented as of this encounter
--- OUTSIDE RECORDS SUMMARY | 2024-09-03 10:57 | XMS_ITS | Clinical Summary ---
Author Organization [facility] Address [address] [place] [address] Care Team Providers Care Water Project Engineer Name Role Phone Unknown, Notinfile Primary Care Provider Unavail able Allergies Active Allergy Reactions Criticality Noted Date [...] yariel associated with type 1 diabetes mellitus ([facility]) 03/27/2023 Methamphetamine use ([facility]) 07/24/2022 Anxiety and depression 03/28/2020 Stage 1 chronic kidney disease 01/18/2020 Chronic hypertension affecting 020 Type 1 diabetes mellitus with hyperglycemia 03/2018 Supervision of high-risk of fredy duenasaviorquidea 08/26/2016 Overview (05/14/2024): Dating: PNL: B+/Imm/-/-, HIV NR Pap: GC/CT: neg/neg. Scanned into media. Urine cx: neg UDS: H/H/P: 12.5/36.3/362 HgbE: Genetics: CF screen negative Anatomy US: Flu shot: LFT's: , 03/2022 HCV: NR Third trimester: GCT: H/H/P: RPR: HIV: Tdap: GBS: Encounters Date Type Department Care Team Description 07/26/2024 Telephone [facility] at [facility] [address] [phone] Kacey Liu MD from Last 3 Months Immunizations Immunization Administration Dates Next Due DTaP [...] Conjugate 7-Valent 06/28/2002 Tdap 01/04/2020,05/23/2008 Varicella 05/23/2008,06/01/2000 Medical History Medical History Date Comments Type 1 diabetes mellitus (HCC) Preeclampsia Nephropathy Chronic hypertension Kidney disease, chronic, sta ge I (normal EGFR) Anxiety Depression Hx of seizure disorder Last seiz ure in elementary school. No meds currently Chlamydia Social History Tobacco Use Types Packs/Day Years [...] on file Sexual Orientation Not on file Obstetrics History Para Term AB IAB SAB Ectopic Multiple Livin g Live Births 12 2 2 9 1 8 2 1 Date Outcome GA Total Labor Labor/2nd/3rd Weight Sex Type Anes PTL Birdie A1 A5 Name Clin SAB SAB SAB SAB SAB SAB SAB SAB 017 36w 1d 3.12 kg (6 lb 14.1 oz) M Vag-S pont Epidur al Livin g Complications:Pre eclampsia Delivery Location:[facility] 020 34w 3d 1.99 kg (4 lb 6.2 oz) F Vag-S pont Epidur al Complications:Pre eclampsia Delivery Location:[facility]. 021 IAB 8w0 d Last Filed Vital Signs Vital Sign Reading Time Taken Comments Blood Pressure 128/79 05/24/2024 3:40 PM MATCHING MACHINE OPERATOR Pulse 100 05/24/2024 3:40 PM MATCHING MACHINE OPERATOR Temperature 36.8 C (98.3 F) 05/24/2024 1:39 PM MATCHING MACHINE OPERATOR Respiratory Rate 18 05/24/2024 3:40 PM MATCHING MACHINE OPERATOR Oxygen Saturation 100% 05/24/2024 3:40 PM MATCHING MACHINE OPERATOR Inhaled Oxygen Concentration - - Weight 59.9 kg (132 lb) 05/24/2024 1:39 PM MATCHING MACHINE OPERATOR Height 162.6 cm (5' 4 ) 05/24/2024 1:39 PM MATCHING MACHINE OPERATOR Body Mass Index 22.66 05/24/2024 1:39 PM MATCHING MACHINE OPERATOR Plan of Treatment Health Maintenance Due Date Last Done Comments Albumin Creatinine Ratio, Urine 1997 Depression Screening 1997 Foot Exam 1997 Hepatitis C Screening 1997 Pneumococcal vaccine <65 (2 of 2 - PPSV23) 2003 06/28/2002 Dilated Eye Exam 2007 Lipid Panel 2007 HPV Vaccines (2 - 2-dose series) 11/20/2008 05/23/20 Regular Well Visit/Exam 18-64 2015 Cervical Cancer Screening 08/30/2020 08/30/2019 Hemoglobin A1C 10/27/2023 04/27/2023, 03/27/2023 Covid-19 Vaccine (4 - 2023-2 5 season) 2024 06/23/2022, 03/12/2021, 02/18/2021 Influenza Vaccine (#1) 2024 , 06/23/2022, 08/30/2019, Additional history exists TSH Level 09/30/2024 10/01/2023, 04/27/2023 eGFR 05/14/2025 05/14/2024, 10/11, 04/27/2023, Additional history exists DTaP/Tdap/Td Vaccine (8 - Td or Tdap) 01/03/2030 01/04/2020, 05/23/2008, 02/07/2002, Additional history exists Hepatitis B Screening Completed 06/01/2000 , 03/10/2000, 10/04/1999 Varicella Vaccines Completed 05/23/2008, 0 02/07/2002, 06/01/2000, Additional history exists Procedures Procedure Name Priority Date/Time Associated Diagnosis [...] of Race in Diagnosing Kidney Disease, JASN 2020). The CKD-EPI equation should not be used for patients with unstable renal function and has not been validated in children and those over 70. Current interpretive data was last reviewed 2021. Blood 05/14/2024 3:26 PM CDT 05/14/2024 3:32 PM CDT Mariano Nunez MD LAB BLOOD ORDERABLES Final Result Performing Organization Address City/[facility]/ZIP Co de Phone Number [facility] [address] [facility] Department [place] [address] * TSH (04/27/2023 7:18 AM CDT) Pathologist [facility] Thyroid Stimulating Hormone 2.44 0.30 - 4.20 mcIUnit/mL [facility] Blood 04/27/2023 7:18 AM CDT 04/27/2023 10:06 AM CDT Rhoda Tapia MD LAB BLOOD ORDERABLES Final Resu lt Performing Organization Address City/[facility]/ZIP Co de Phone Number [facility] [place] [address] * (ABNORMAL) Hemoglobin A1c (04/27/2023 7:18 AM CDT) Hgb A1C 8.8(H) 4.0 - 5.6 % [facility] Estimated Average Glucose 206 mg/dL [facility] Comment: The ADA recommends reporting an estimated Average Glucose (eAG) with all Hemoglobin A1c results using the equation derived from a study of 507 normal and diabetic adults. Minority populations were underrepresented and children were not included. (Diabetes Care 2020; 43(S1): S66-S76). The eAG is not equivalent to a fasting glucose. Blood 04/27/2023 7:18 AM CDT 04/27/2023 10:06 AM CDT us Rhoda Tapia MD LAB BLOOD ORDERABLES Final Resu lt [facility] Department [place] [address] from Last 3 Months or Most Recently Relevant to Health Maintenance Additional Health Concerns Infection Onset Date Last Indicated MRSA 05/14/2024 05/14/2024 Insurance [facility] Advance Directives For more information, please contact: [phone] * Full Code (Latest Code Status on File) Date Activated Date Inactivated Comments 03/27/2023 6:22 AM 03/31/2023 6:58 PM Care Teams Water Project Engineer Relationship Specialty Start Date End Date Unknown, Notinfile PCP - General 03/29/22
--- OUTSIDE RECORDS SUMMARY | 2024-09-03 10:57 | XMS_ITS | Data Portability ---
Author Organization [place] [facility] Address [address] [place] [address] Assessment No assessment recorded. Plan of Treatment Reminders Order Date Submit Date Provider Last Modified By Organization Details Last Modified Time Details Appointments None recorde d. Lab drug screen, body fluid 018 11/21/19 18 ronald Wiseman, [address], [place], [phone], 8 14:17:30 Referral None recorde d. Procedures None recorde d. Surgeries None recorde d. Imaging None recorde d. Medication Orders None recorde d. Patient TargetsNo targets recorded. Patient InstructionsNo instructions recorded. Reason for Referral None Reported. Results Created Date Observation Date Name Description Value Unit Range Abnormal Flag Note LastModifiedBy Organization Detail LastModifiedTime Result Notes None recorded. Medical Equipment None Reported. Vitals None Recorded Social History None recorded. Functional Status None recorded. Mental Status None recorded. Family History Nothing Reported. Medical History No medical history recorded. Gynecological HistoryNo gynecological history recorded. Obstetrics History GPAL:G 0 P 0 0 0 0 Past Encounters Encounter ID Performer Location Encounter Start Date Encounter Closed Date Diagnosis/Indication Diagnosis SNOMED-CT Code Diagnosis ICD10 Code Diagnosis Note [id number] Kahlil [place] [facility] [address] [place] [address] 11/20/2017 13:14:35 11/20/2017 13:32:48 Health examination of sub-group [id number] Z00.8 Health Concerns Section Related Observation LastModified by Organization Detai ls LastModified Time None Recorded Concern Status LastModified by Organization Details LastModified Time None Recorded Advance Directives Directive None Recorded Payers Encounter Date Sequence Insurance Name Policy Number Policy Headley Covered Member ID Headley Member ID Guarantor Name 11/20/2017 KYLE TORRES [id number] Fariba Acharya OBGytiara Episode No OBEpisode recorded.
--- OUTSIDE RECORDS SUMMARY | 2024-09-03 10:57 | XMS_ITS | Encounter Summary ---
Author Organization [facility] Address [facility] [place] [address] Care Team Providers Care Sand Conditioner Name Role Phone None, Provider Primary Care Provider Nan Abreu Primary Care Provider [phone] Ashanti Dickerson PA-C Primary Care Provider [phone] None, Provider Primary Care Provider Celeste greenberg Encounter Details Date Type Department Care Team (Late st Contact Info) Description 10/27/2018 Abstract [facility] CONVERSION [address] [place] [address] , Generic Conversion, Social History Tobacco Use Types Packs/Day Years Used Date Smoking Tobacco: Never Assessed Comments Unknown Sex and Gender Information Value Date Recorded Sex Assigned at Not on file Legal Sex Female 2:53 PM CDT Gender Identity Not on file Sexual Orientation Not on file documented as of this encounter Plan of Treatment Not on file documented as of this encounter Visit Diagnoses Not on filedocumented in this encounter Additional Health Concerns Infection Onset Date Last Indicated Resolved Time COVID-19 Rule Out 10/01/2023 10/01/2023 10/01/2023 3:30 PM CDT documented as of this encounter Care Teams Sand Conditioner Relationship Specialty Start Date End Date None, Provider, PCP - General 12/26/18 03/27/20 Nan Garza APNP [id number] [address] PCP - General Nurse Practitioner Family 03/28/2002/10 Ashanti Dickerson PA-C [address] [place] [address] PCP - General PHYSICIAN MARKETING MANAGER HEALTH COMMUNICATIONS 02/26/23 03/30/23 None, Provider, MD PCP - General UNKNOWN PHYSICIAN SPECIALTY 03/31/23 documented as of this encounter
--- OUTSIDE RECORDS SUMMARY | 2024-09-03 10:57 | XMS_ITS | Referral Summary ---
Author Organization [facility] Address [address] [place] [address] Care Team Providers Care Foundry Worker Apprentice Name Role Phone None, Physician Primary Care Provider Unavailabl e Source Comments [facility]non-owned Affiliates and Associated Physician Practices is amultiple site organization consisting of ambulatory clinics and hospital sitesin [place], [place], [place] and [place]. This disclosure is being madepursuant to the Care Everywhere program and may not contain all information available regarding this patient. Last updated 18.[facility] Allergies Active Allergy Reactions Criticality Noted Date [...] migh t be different from the original. [employer] form completed. Diapers given. [...] 08/31/2019 Immunizations Name Administration Dates Next Due [employer]305 BIVALENT 12Y+ 30mcg/0.3ML 2 DTAP, HISTORIC VACCINE [...] Comments - received during ),01/04/2020,05/23/2008 VARICELLA 05/23/2008,06/01/2000 Social History Tobacco Use Types Packs/Day [...] place to sleep or slept in a longterm (including now)? Patient refused 05/14/2022 Sharples Depression Scale Answer Date Recorded RETIRED: Total Score 0 06/23/2022 Last EPDS Self Harm Result Not on file 06/23 Sex and Gender Information Value Date Recorded Sex Assigned at Not on file Gender Identity Not on file Sexual Orientation Not on file Last Filed Vital Signs Vital Sign Reading Time Taken Comments Blood Pressure 131/95 09/16/2023 3:00 PM MATERIAL CHASER Pulse 100 09/16/2023 3:04 PM MATERIAL CHASER Temperature 36.6 C (97.8 F) 09/16/2023 11:57 AM MATERIAL CHASER Respiratory Rate 20 09/16/2023 3:04 PM MATERIAL CHASER Oxygen Saturation 100% 09/16/2023 3:04 PM MATERIAL CHASER Inhaled Oxygen Concentration 21% 04/16/2023 1 1:20 AM CDT Weight 64 kg (141 lb) 04/15/2023 4:00 AM CDT Height 162.6 cm (5' 4 ) 04/03/2023 1:57 PM CDT Body Mass Index 24.2 04/03/2023 1:57 PM CDT Functional Status Functional Status Response Date of [...] person have difficulty concentrating/remembering/making decisions? No 04/01/2023 Plan of Treatment Not on file Procedures Procedure Name Priority Date/Time Associated Diagnosis Comments HEPATITIS C ANTIBODY Routine 03/18/2022 1:59 PM CDT Supervision of high-risk of young multigravida (HCC) HIV-1 HIV-2 ANTIBODY + HIV P24 AG PANEL Routine 03/18/2022 1:59 PM CDT Supervision of high-risk of young multigravida (HCC) PAP THINPREP Routine 08/30/2019 2:06 PM MATERIAL CHASER High risk teen in first trimester (HCC) from Last 3 Months or Most Recently Relevant to Health Maintenance Results * HIV-1 HIV-2 ANTIBODY + HIV P24 AG PANEL (03/18/2022 1:59 PM CDT) HIV1/2 Ab + P24 Ag Non Reactive Non Reactive 03/18/2022 3:26 PM CDT [facility] Blood BLOOD SPECIMEN / Unknown Venipuncture / Unknown 03/18/2022 1:59 PM CDT 03/18/2022 2:12 PM CDT Narrative [facility] - 03/18/2022 3:26 PM CDT No Laboratory evidence of HIV infection. Sharon Beltran PROCESS ASSISTANT-TALENT DIRECTOR LAB - CHEMISTRY ORDERABLES [facility] [address] [place] [address] * HEPATITIS C ANTIBODY (03/18/2022 1:59 PM CDT) HCV Antibody Screen Non Reactive Non Reactive 03/18/2022 3:25 PM CDT [facility] Blood BLOOD SPECIMEN / Unknown Venipuncture / Unknown 03/18/2022 1:59 PM CDT 03/18/2022 2:12 PM CDT Narrative [facility] - 03/18/2022 3:25 PM CDT Non Reactive - Antibodies to Hepatitis C virus (HCV) were not detected, result does not exclude early acute HCV infection. Sharon Frostmihaeladayton PROCESS ASSISTANT-TALENT DIRECTOR LAB - CHEMISTRY ORDERABLES [facility] [address] [place] [address] * PAP THINPREP (08/30/2019 2:06 PM MATERIAL CHASER) Diagnosis Comment 09/02/2019 11:08 AM MATERIAL CHASER [facility] ([facility]) Comment:NEGATIVE FOR INTRAEP ITHELIAL LESION OR MALIGNANCY. Specimen Adequacy Comment 020 11:08 AM MATERIAL CHASER [facility] ([facility]) Comment:Satisfactory for adriana luation. No endocervical component is identified. Performed by Comment 09/02/2019 11:08 AM MATERIAL CHASER [facility] ([facility] Comment:Latoya Vasquez totechnologist Comment . 09/02/2019 11:08 AM MATERIAL CHASER [facility] ([facility] Note Comment 09/02/2019 11:08 AM MATERIAL CHASER [facility] ([facility]) Comment: The Pap smear is a screening test designed to aid in the detection of premalignant and malignant conditions of the uterine cervix. It is not a diagnostic procedure and should not be used as the sole means of detecting cervical cancer. Both false-positive and false-negative reports do occur. Pathology/Cytolo gy ENTIRE ENDOCERVIX / Unknown Collection / Unknown 08/30/2019 2:06 PM MATERIAL CHASER 08/30/2019 2:32 PM MATERIAL CHASER Narrative [facility] ([facility]) - 09/02/2019 11:08 AM MATERIAL CHASER Performed at: [facility] [id number] Prosthetic Makeup Designer: Diane Rodriguez MD, Phone: [phone] Specimen Comment: Source.............Endocervix Specimen Comment: No. of containers..01 ThinPrep Vial Genevieve Locke MD LAB - PATHOLOGY/CYTO LOGY ORDERABLES [facility]) [address] [place] [address] from Last 3 Months or Most Recently Relevant to Health Maintenance Administered Medications Additional Health Concerns Infection Onset Date Last [...] 4:01 AM 02/17/2020 6:43 PM Care Teams Foundry Worker Apprentice Relationship Specialty Start Date End Date None, Physician [address] [place] [address] PCP - General 04/01/23"
--- OUTSIDE RECORDS SUMMARY | 2024-09-03 10:58 | XMS_ITS | Patient Health Summary ---
Author Organization [facility] Address [address] [place] [address] Care Team Providers Care Security Assistant Name Role Phone None, Physician Primary Care Provider Unavailabl e Note from [facility],non-owned Affiliates and Associated Physician Practices is amultiple site organization consisting of ambulatory clinics and hospital sitesin [place], [place], [place] and [place]. This disclosure is being madepursuant to the Care Everywhere program and may not contain all information available regarding this patient. Last updated 18.[facility] Allergies * Latex(Rash) -Medium Criticality * Skin Adhesives(Urticaria) -Medium Criticality * Sulfamethoxazole W-Trimethoprim(Urticaria) -Medium Criticality Medications * Be aware that medications may not be up to date on this document. Alwaysverify current medications with the patient. * aspirin (Aspirin) 81 MG chew tablet(Started 04/17/2023) Take 1 (one) tablet by mouth once daily * busPIRone (Buspar) 10 MG tablet(Started 04/16/2023) Take 1 (one) tablet by mouth 3 times daily * hydrOXYzine HCl (Atarax) 25 MG tablet(Started 04/16/2023) Take 1 (one) tablet by mouth 4 times daily as needed for Itching * gabapentin (Neurontin) 100 MG capsule(Started 04/16/2023) Take 2 (two) capsules by mouth 3 times daily * insulin aspart (NovoLOG) pen(Started 04/16/2023) Inject 0 (zero) Units to 12 (twelve) Units subcutaneously 3 times daily with meals * insulin glargine (Lantus/Semglee) 100 units/mL pen(Started 04/16/2023) Inject 20 (twenty) Units subcutaneously at bedtime * hydroxyurea (Hydrea) 500 MG capsule(Started 04/17/2023) Take 2 (two) capsules by mouth once daily * folic acid (Folvite) 1 MG tablet(Started 04/17/2023) Take 1 (one) tablet by mouth once daily * melatonin 3 MG tablet(Started 04/16/2023) Take 1 (one) tablet by mouth at bedtime * predniSONE (Deltasone) 10 MG tablet(Started 04/16/2023) Take 4 tablets daily for 3 days, take 3 tablets daily for 3 days, take 2 tablets daily for 3 days, then take 1 tablet daily for 3 days * budesonide-formoterol (Symbicort) 160-4.5 MCG/ACT inhaler(Started 04/16/2023) Inhale 2 (two) puffs by mouth 2 times daily * albuterol HFA (ProAir HFA) 108 (90 Base) MCG/ACT inhaler(Started 04/16/2023) Inhale 2 (two) puffs by mouth every 4 hours as needed for Shortness of Breath, Wheezing or Cough * Oxygen(Started 04/16/2023) Oxygen continuous at 3 L/min via nasal cannula and 3 L with activity. - Estimate length of need (number of months): 1 * insulin glargine (Lantus/Semglee) 100 units/ml injection(Started 09/16/2023) Inject 20 (twenty) Units subcutaneously at bedtime for 30 days 1 refill by 09/15/2024 * insulin aspart (NovoLOG FLEXPEN) pen(Started 09/16/2023) Inject 12 (twelve) Units subcutaneously 3 times daily before meals 1 refill by 09/15/2024 Active Problems Problem Noted Date Diagnosed Date Respiratory distress [...] 09/20/2019 Type 1 diabetes mellitus in 08/26/2016 Supervision of high-risk of young radha igravida 08/26/2016 Poor growth Resolved Problems Problem Noted Date Diagnosed Date Resolved Date High risk teen 08/26/2016 Preeclampsia, severe 020 Forceps delivery 08/31/2019 Immunizations * COVID PFIZER BIVALENT 12Y+ 30mcg/0.3ML(Given 06/23/2022) * DTAP, HISTORIC VACCINE(Given 01/08/2002, 01/01/2001, 03/04/2000, 10/04/1999, 06/19/1999, 1997) * DTAP/IPV(Given 02/07/2002, 03/10/2000, 10/04/1999, 06/19/1999) * DTaP VACCINE IM (6wk-6yrs)(Given 01/08/2002, 01/01/2001, 03/04/2000, 10/04/1999, 06/19/1999, 1997) * FLU VACCINE TRI IIV3 SPLIT PF IM (FLUVIRIN)(Given 04/08/2013) * HEP A PED/ADULT VACCINE(Given 05/23/2008) * HEP B VACCINE, PED/ADOL(Given 06/01/2000, 03/10/2000, 10/04/1999) * HIB(Given 01/01/2001, 03/10/2000, 10/04/1999, 06/19/1998) * HPV VACCINE(Given 05/23/2008) * INFLUENZA VACCINE(Given 07/25/2015, 04/08/2013, 06/04/2010, 03/28/2009, 05/23/2008) * INFLUENZA VACCINE, QUADR. (FLUZONE; FLULAVAL; FLUARIX; AFLURIA QUADRIVALENT; 6MO+), 0.5 ML (IIV4)(Given 04/02/2023, 06/23/2022, 08/30/2019) * INFLUENZA VACCINE, RECOM-PEACOCK, TRIV. (FLUBLOCK TRIVALENT; 18Y+) (RIV3)(Given 07/25/2015, 06/04/2010) * MENINGOCOCCAL CONJUGATE (MCV4P)(Given 05/23/2008) * MMR(Given 02/07/2002, 06/19/1999) * MMR/VARICELLA(Given 02/07/2002, 06/19/1999) * PNEUMOCOCCAL PCV7 CONJ, PEDS(Given 06/28/2002) * POLIO IPV(Given 02/07/2002, 03/10/2000, 10/04/1999, 06/19/1999) * TDAP (7yrs+)(Given 01/04/2020, 05/23/2008) * VARICELLA(Given 05/23/2008, 06/01/2000) Social History Tobacco Use Types Packs/Day Years [...] or rent on time? Patient refused 05/14/20 Number of Places Lived in the Last Year Not on f ile 05/14/2022 In the last 12 months, was t here a time when you did not have a steady place to sleep or slept in a senior living (including now)? Patient refused 05/14/2022 [place] Depression Scale Answer Date Recorded RETIRED: Total Score 0 06/23/2022 Last EPDS Self Harm Result Not on file 06/23 Sex and Gender Information Value Date Recorded Sex Assigned at Not on file Gender Identity Not on file Sexual Orientation Not on file Last Filed Vital Signs Vital Sign Reading Time Taken Comments Blood Pressure 131/95 09/16/2023 3:00 PM MAIL DISTRIBUTION CLERK Pulse 100 09/16/2023 3:04 PM MAIL DISTRIBUTION CLERK Temperature 36.6 C (97.8 F) 09/16/2023 11:57 AM MAIL DISTRIBUTION CLERK Respiratory Rate 20 09/16/2023 3:04 PM MAIL DISTRIBUTION CLERK Oxygen Saturation 100% 09/16/2023 3:04 PM MAIL DISTRIBUTION CLERK Inhaled Oxygen Concentration 21% 04/16/2023 1 1:20 AM CDT Weight 64 kg (141 lb) 04/15/2023 4:00 AM CDT Height 162.6 cm (5' 4 ) 04/03/2023 1:57 PM CDT Body Mass Index 24.2 04/03/2023 1:57 PM CDT Procedures * GLUCOSE - POINT OF CARE(Performed 09/16/2023) * GLUCOSE - POINT OF CARE(Performed 09/16/2023) * COMPREHENSIVE METABOLIC PANEL(Performed 09/16/2023) * CBC W AUTO DIFFERENTIAL(Performed 09/16/2023) * GLUCOSE - POINT OF CARE(Performed 09/16/2023) * CARDIAC RHYTHM STRIP ORDER(Performed 04/25/2023) * GLUCOSE - POINT OF CARE(Performed 04/17/2023) * GLUCOSE - POINT OF CARE(Performed 04/17/2023) * GLUCOSE - POINT OF CARE(Performed 04/17/2023) * CBC W AUTO DIFFERENTIAL(Performed 04/17/2023) * RENAL FUNCTION PANEL(Performed 04/17/2023) * GLUCOSE - POINT OF CARE(Performed 04/17/2023) * GLUCOSE - POINT OF CARE(Performed 04/16/2023) * GLUCOSE - POINT OF CARE(Performed 04/16/2023) * GLUCOSE - POINT OF CARE(Performed 04/16/2023) * GLUCOSE - POINT OF CARE(Performed 04/16/2023) * GLUCOSE - POINT OF CARE(Performed 04/16/2023) * DIFFERENTIAL MANUAL(Performed 04/16/2023) * FERRITIN(Performed 04/16/2023) * IRON + TRANSFERRIN PANEL(Performed 04/16/2023) * VITAMIN B12(Performed 04/16/2023) * FOLATE(Performed 04/16/2023) * CBC W AUTO DIFFERENTIAL(Performed 04/16/2023) * RENAL FUNCTION PANEL(Performed 04/16/2023) * GLUCOSE - POINT OF CARE(Performed 04/16/2023) * GLUCOSE - POINT OF CARE(Performed 04/15/2023) * GLUCOSE - POINT OF CARE(Performed 04/15/2023) * GLUCOSE - POINT OF CARE(Performed 04/15/2023) * XR CHEST 1VW PORTABLE(Performed 04/15/2023) Performed for Pneumonia of both lungs due to infectious organism, unspecified part of lung * GLUCOSE - POINT OF CARE(Performed 04/15/2023) * CBC W/O DIFFERENTIAL(Performed 04/15/2023) * FERRITIN(Performed 04/15/2023) * GLUCOSE - POINT OF CARE(Performed 04/14/2023) * GLUCOSE - POINT OF CARE(Performed 04/14/2023) * GLUCOSE - POINT OF CARE(Performed 04/14/2023) * HOME O2 EVAL (DESATURATION SCREEN)(Performed 04/14/2023) * GLUCOSE - POINT OF CARE(Performed 04/14/2023) * DIFFERENTIAL MANUAL(Performed 04/14/2023) * PHOSPHORUS BLOOD(Performed 04/14/2023) * MAGNESIUM BLOOD(Performed 04/14/2023) * BASIC METABOLIC PANEL (CALCIUM TOTAL)(Performed 04/14/2023) * CBC W AUTO DIFFERENTIAL(Performed 04/14/2023) * FERRITIN(Performed 04/14/2023) * GLUCOSE - POINT OF CARE(Performed 04/14/2023) * GLUCOSE - POINT OF CARE(Performed 04/13/2023) * GLUCOSE - POINT OF CARE(Performed 04/13/2023) * VAS BILATERAL VENOUS DUPLEX LE(Performed 04/13/2023) Performed for Leg swelling * GLUCOSE - POINT OF CARE(Performed 04/13/2023) * GLUCOSE - POINT OF CARE(Performed 04/13/2023) * DIFFERENTIAL MANUAL(Performed 04/13/2023) * PHOSPHORUS BLOOD(Performed 04/13/2023) * MAGNESIUM BLOOD(Performed 04/13/2023) * BASIC METABOLIC PANEL (CALCIUM TOTAL)(Performed 04/13/2023) * CBC W AUTO DIFFERENTIAL(Performed 04/13/2023) * FERRITIN(Performed 04/13/2023) * GLUCOSE - POINT OF CARE(Performed 04/12/2023) * GLUCOSE - POINT OF CARE(Performed 04/12/2023) * BASIC METABOLIC PANEL (CALCIUM TOTAL)(Performed 04/12/2023) * GLUCOSE - POINT OF CARE(Performed 04/12/2023) * XR CHEST 1VW PORTABLE(Performed 04/12/2023) Performed for Respiratory distress, Hypoxia * IMMUNOSCORE IGE INTERP(Performed 04/12/2023) * CYCLIC CITRUL PEPTIDE ANTIBODY IGG/IGA (CCP)(Performed 04/12/2023) * RHEUMATOID FACTOR BLOOD QUANTITATIVE(Performed 04/12/2023) * ANCA VASCULITIS PANEL(Performed 04/12/2023) * MICHELLE BLOOD SCREEN W/REFLEX TITER(Performed 04/12/2023) * ALLERGEN ASPERGILLUS FUMIGATUS IGE(Performed 04/12/2023) * ASPERGILLUS FUMIGATUS ANTIBODY IGG(Performed 04/12/2023) * IGE BLOOD(Performed 04/12/2023) * GLUCOSE - POINT OF CARE(Performed 04/12/2023) * EKG 12-LEAD(Performed 04/12/2023) Performed for Chest pain, unspecified type * PHOSPHORUS BLOOD(Performed 04/12/2023) * MAGNESIUM BLOOD(Performed 04/12/2023) * BASIC METABOLIC PANEL (CALCIUM TOTAL)(Performed 04/12/2023) * CBC W AUTO DIFFERENTIAL(Performed 04/12/2023) * FERRITIN(Performed 04/12/2023) * GLUCOSE - POINT OF CARE(Performed 04/11/2023) * GLUCOSE - POINT OF CARE(Performed 04/11/2023) * GLUCOSE - POINT OF CARE(Performed 04/11/2023) * DIFFERENTIAL MANUAL(Performed 04/11/2023) * CBC W AUTO DIFFERENTIAL(Performed 04/11/2023) * BASIC METABOLIC PANEL (CALCIUM TOTAL)(Performed 04/11/2023) * MAGNESIUM BLOOD(Performed 04/11/2023) * PHOSPHORUS BLOOD(Performed 04/11/2023) * GLUCOSE - POINT OF CARE(Performed 04/11/2023) * SS-A (SJOGREN'S) ANTIBODY(Performed 04/11/2023) * SCLERODERMA 70 (SCL) ANTIBODY(Performed 04/11/2023) * XR CHEST 1VW PORTABLE(Performed 04/11/2023) Performed for ARDS (adult respiratory distress syndrome) ([facility]) * EKG 12-LEAD(Performed 04/11/2023) Performed for ARDS (adult respiratory distress syndrome) ([facility]) * GLUCOSE - POINT OF CARE(Performed 04/11/2023) * C-REACTIVE PROTEIN(Performed 04/11/2023) * PHOSPHORUS BLOOD(Performed 04/11/2023) * MAGNESIUM BLOOD(Performed 04/11/2023) * BASIC METABOLIC PANEL (CALCIUM TOTAL)(Performed 04/11/2023) * CBC W AUTO DIFFERENTIAL(Performed 04/11/2023) * FERRITIN(Performed 04/11/2023) * ERYTHROCYTE SEDIMENTATION RATE(Performed 04/11/2023) * GLUCOSE - POINT OF CARE(Performed 04/10/2023) * GLUCOSE - POINT OF CARE(Performed 04/10/2023) * VAS RIGHT VENOUS DUPLEX UE(Performed 04/10/2023) Performed for Arm swelling * ANCA VASCULITIS PANEL(Performed 04/10/2023) * C-REACTIVE PROTEIN(Performed 04/10/2023) * ERYTHROCYTE SEDIMENTATION RATE(Performed 04/10/2023) * MICHELLE BLOOD SCREEN W/REFLEX TITER(Performed 04/10/2023) * GLUCOSE - POINT OF CARE(Performed 04/10/2023) * CT CHEST WO CONTRAST(Performed 04/10/2023) Performed for Hypoxia * BLOOD GASES+LYTES ARTERIAL(Performed 04/10/2023) Performed for ARDS (adult respiratory distress syndrome) ([facility]) * GLUCOSE - POINT OF CARE(Performed 04/10/2023) * GLUCOSE - POINT OF CARE(Performed 04/10/2023) * GLUCOSE - POINT OF CARE(Performed 04/10/2023) * FERRITIN(Performed 04/10/2023) * PHOSPHORUS BLOOD(Performed 04/10/2023) * MAGNESIUM BLOOD(Performed 04/10/2023) * CBC W AUTO DIFFERENTIAL(Performed 04/10/2023) * BASIC METABOLIC PANEL (CALCIUM TOTAL)(Performed 04/10/2023) * GLUCOSE - POINT OF CARE(Performed 04/09/2023) * GLUCOSE - POINT OF CARE(Performed 04/09/2023) * GLUCOSE - POINT OF CARE(Performed 04/09/2023) * HOME O2 EVAL (DESATURATION SCREEN)(Performed 04/09/2023) * GLUCOSE - POINT OF CARE(Performed 04/09/2023) * GLUCOSE - POINT OF CARE(Performed 04/09/2023) * GLUCOSE - POINT OF CARE(Performed 04/09/2023) * PHOSPHORUS BLOOD(Performed 04/09/2023) * MAGNESIUM BLOOD(Performed 04/09/2023) * CBC W AUTO DIFFERENTIAL(Performed 04/09/2023) * BASIC METABOLIC PANEL (CALCIUM TOTAL)(Performed 04/09/2023) * GLUCOSE - POINT OF CARE(Performed 04/08/2023) * GLUCOSE - POINT OF CARE(Performed 04/08/2023) * GLUCOSE - POINT OF CARE(Performed 04/08/2023) * HOME O2 EVAL (DESATURATION SCREEN)(Performed 04/08/2023) * XR CHEST 1VW PORTABLE(Performed 04/08/2023) Performed for Pneumonia of both lungs due to infectious organism, unspecified part of lung * GLUCOSE - POINT OF CARE(Performed 04/08/2023) * GLUCOSE - POINT OF CARE(Performed 04/08/2023) * GLUCOSE - POINT OF CARE(Performed 04/08/2023) * PHOSPHORUS BLOOD(Performed 04/08/2023) * MAGNESIUM BLOOD(Performed 04/08/2023) * BASIC METABOLIC PANEL (CALCIUM TOTAL)(Performed 04/08/2023) * GLUCOSE - POINT OF CARE(Performed 04/08/2023) * GLUCOSE - POINT OF CARE(Performed 04/07/2023) * GLUCOSE - POINT OF CARE(Performed 04/07/2023) * XR CHEST 1VW PORTABLE(Performed 04/07/2023) Performed for ARDS (adult respiratory distress syndrome) ([facility]) * GLUCOSE - POINT OF CARE(Performed 04/07/2023) * DIFFERENTIAL MANUAL(Performed 04/07/2023) * PHOSPHORUS BLOOD(Performed 04/07/2023) * COMPREHENSIVE METABOLIC PANEL(Performed 04/07/2023) * CBC W AUTO DIFFERENTIAL(Performed 04/07/2023) * MAGNESIUM BLOOD(Performed 04/07/2023) * GLUCOSE - POINT OF CARE(Performed 04/07/2023) * CT HEAD WO CONTRAST(Performed 04/07/2023) Performed for Right arm weakness * GLUCOSE - POINT OF CARE(Performed 04/06/2023) * GLUCOSE - POINT OF CARE(Performed 04/06/2023) * GLUCOSE - POINT OF CARE(Performed 04/06/2023) * MRI CERVICAL SPINE WO CONTRAST(Performed 04/06/2023) Performed for Right arm weakness * RENAL FUNCTION PANEL(Performed 04/06/2023) * GLUCOSE - POINT OF CARE(Performed 04/06/2023) * GLUCOSE - POINT OF CARE(Performed 04/06/2023) * XR SHOULDER RIGHT 2VW OR MORE(Performed 04/06/2023) Performed for Right arm weakness * GLUCOSE - POINT OF CARE(Performed 04/06/2023) * XR CHEST 1VW PORTABLE(Performed 04/06/2023) Performed for Hypoxia, ARDS (adult respiratory distress syndrome) (HCC) * GLUCOSE - POINT OF CARE(Performed 04/06/2023) * PHOSPHORUS BLOOD(Performed 04/06/2023) * COMPREHENSIVE METABOLIC PANEL(Performed 04/06/2023) * CBC W AUTO DIFFERENTIAL(Performed 04/06/2023) * MAGNESIUM BLOOD(Performed 04/06/2023) * VANCOMYCIN LEVEL RANDOM(Performed 04/06/2023) * GLUCOSE - POINT OF CARE(Performed 04/05/2023) * GLUCOSE - POINT OF CARE(Performed 04/05/2023) * VANCOMYCIN LEVEL TROUGH(Performed 04/05/2023) * GLUCOSE - POINT OF CARE(Performed 04/05/2023) * GLUCOSE - POINT OF CARE(Performed 04/05/2023) * GLUCOSE - POINT OF CARE(Performed 04/05/2023) * TRIGLYCERIDES BLOOD(Performed 04/05/2023) * BLOOD GASES+LYTES ARTERIAL(Performed 04/05/2023) * GLUCOSE - POINT OF CARE(Performed 04/05/2023) * DIFFERENTIAL MANUAL(Performed 04/05/2023) * B-TYPE NATRIURETIC PEPTIDE(Performed 04/05/2023) * PHOSPHORUS BLOOD(Performed 04/05/2023) * COMPREHENSIVE METABOLIC PANEL(Performed 04/05/2023) * CBC W AUTO DIFFERENTIAL(Performed 04/05/2023) * MAGNESIUM BLOOD(Performed 04/05/2023) * GLUCOSE - POINT OF CARE(Performed 04/04/2023) * GLUCOSE - POINT OF CARE(Performed 04/04/2023) * GLUCOSE - POINT OF CARE(Performed 04/04/2023) * RENAL FUNCTION PANEL(Performed 04/04/2023) * BLOOD GASES ARTERIAL(Performed 04/04/2023) * GLUCOSE - POINT OF CARE(Performed 04/04/2023) * GLUCOSE - POINT OF CARE(Performed 04/04/2023) * XR CHEST 1VW PORTABLE(Performed 04/04/2023) Performed for Pneumonia of both lungs due to infectious organism, unspecified part of lung * BLOOD GASES+LYTES ARTERIAL(Performed 04/04/2023) * CBC W/O DIFFERENTIAL(Performed 04/04/2023) * BASIC METABOLIC PANEL (CALCIUM TOTAL)(Performed 04/04/2023) * GLUCOSE - POINT OF CARE(Performed 04/04/2023) * GLUCOSE - POINT OF CARE(Performed 04/03/2023) * GLUCOSE - POINT OF CARE(Performed 04/03/2023) * CULTURE BRONCHOALVEOLAR LAVAGE QNT+GRAM STAIN(Performed 04/03/2023) * CULTURE AFB+SMEAR(Performed 04/03/2023) * CULTURE ANAEROBE(Performed 04/03/2023) * CULTURE FUNGUS OTHER+FUNGUS SMEAR(Performed 04/03/2023) * CULTURE BRONCHIAL WASHING+GRAM STAIN(Performed 04/03/2023) * XR ABDOMEN KUB(Performed 04/03/2023) Performed for SOB (shortness of breath) * VANCOMYCIN LEVEL TROUGH(Performed 04/03/2023) * BASIC METABOLIC PANEL (CALCIUM TOTAL)(Performed 04/03/2023) * GLUCOSE - POINT OF CARE(Performed 04/03/2023) * BLOOD GASES ARTERIAL(Performed 04/03/2023) Performed for Hypoxia * VENTILATOR LIBERATION TRIAL PROTOCOL(Performed 04/03/2023) * PULSE OXIMETRY, CONTINUOUS(Performed 04/03/2023) * XR CHEST POST PROCEDURE(Performed 04/03/2023) Performed for Hypoxia * GLUCOSE - POINT OF CARE(Performed 04/03/2023) * GLUCOSE - POINT OF CARE(Performed 04/03/2023) * BRONCHOSCOPY(Performed 04/03/2023) * GLUCOSE - POINT OF CARE(Performed 04/03/2023) * GLUCOSE - POINT OF CARE(Performed 04/03/2023) * ECHO LIMITED OR FOLLOWUP(Performed 04/03/2023) Performed for SOB (shortness of breath) * GLUCOSE - POINT OF CARE(Performed 04/03/2023) * GLUCOSE - POINT OF CARE(Performed 04/03/2023) * GLUCOSE - POINT OF CARE(Performed 04/03/2023) * GLUCOSE - POINT OF CARE(Performed 04/03/2023) * GLUCOSE - POINT OF CARE(Performed 04/03/2023) * PROCALCITONIN LEVEL(Performed 04/03/2023) * URINALYSIS REFLEX TO MICROSCOPIC NO CULTURE(Performed 04/03/2023) * BLOOD GASES+LYTES VENOUS(Performed 04/03/2023) * HYDROXYBUTYRATE BETA(Performed 04/03/2023) * PROCALCITONIN LEVEL(Performed 04/03/2023) * CBC W AUTO DIFFERENTIAL(Performed 04/03/2023) * COMPREHENSIVE METABOLIC PANEL(Performed 04/03/2023) * LACTIC ACID BLOOD(Performed 04/03/2023) * VANCOMYCIN LEVEL TROUGH(Performed 04/03/2023) * LEGIONELLA ANTIGEN URINE(Performed 04/03/2023) * STREP PNEUMONIAE ANTIGEN URINE(Performed 04/03/2023) * BLOOD GASES ARTERIAL(Performed 04/03/2023) Performed for Hypoxia * XR CHEST 1VW PORTABLE(Performed 04/03/2023) Performed for Pneumonia of both lungs due to infectious organism, unspecified part of lung * GLUCOSE - POINT OF CARE(Performed 04/03/2023) * C-REACTIVE PROTEIN(Performed 04/03/2023) * MAGNESIUM BLOOD(Performed 04/03/2023) * PHOSPHORUS BLOOD(Performed 04/03/2023) * TSH REFLEX FREE T4(Performed 04/03/2023) * DIFFERENTIAL MANUAL(Performed 04/03/2023) * PT PTT PANEL(Performed 04/03/2023) * COMPREHENSIVE METABOLIC PANEL(Performed 04/03/2023) * CBC W AUTO DIFFERENTIAL(Performed 04/03/2023) * IRON + TRANSFERRIN PANEL(Performed 04/03/2023) * GLUCOSE - POINT OF CARE(Performed 04/03/2023) * GLUCOSE - POINT OF CARE(Performed 04/02/2023) * GLUCOSE - POINT OF CARE(Performed 04/02/2023) * D-DIMER(Performed 04/02/2023) * CULTURE BLOOD(Performed 04/02/2023) * CULTURE BLOOD(Performed 04/02/2023) * CT CHEST W CONTRAST(Performed 04/02/2023) Performed for Pneumonia of both lungs due to infectious organism, unspecified part of lung * GLUCOSE - POINT OF CARE(Performed 04/02/2023) * XR CHEST 1VW PORTABLE(Performed 04/02/2023) Performed for Pneumonia of both lungs due to infectious organism, unspecified part of lung * GLUCOSE - POINT OF CARE(Performed 04/02/2023) * XR CHEST 1VW PORTABLE(Performed 04/02/2023) Performed for Pneumonia of both lungs due to infectious organism, unspecified part of lung * RESPIRATORY PANEL WITH SARS-COV-2 BY PCR ([facility])(Performed 04/02/2023) * GLUCOSE - POINT OF CARE(Performed 04/02/2023) * HEMOGLOBIN A1C(Performed 04/02/2023) * CBC W/O DIFFERENTIAL(Performed 04/02/2023) Performed for SOB (shortness of breath), Pneumonia of both lungs due to infectious organism, unspecified part of lung * COMPREHENSIVE METABOLIC PANEL(Performed 04/02/2023) Performed for SOB (shortness of breath), Pneumonia of both lungs due to infectious organism, unspecified part of lung * MAGNESIUM BLOOD(Performed 04/02/2023) Performed for SOB (shortness of breath), Pneumonia of both lungs due to infectious organism, unspecified part of lung * PHOSPHORUS BLOOD(Performed 04/02/2023) Performed for SOB (shortness of breath), Pneumonia of both lungs due to infectious organism, unspecified part of lung * GLUCOSE - POINT OF CARE(Performed 04/01/2023) * MRSA DNA PCR(Performed 04/01/2023) * DIFFERENTIAL MANUAL(Performed 04/01/2023) * MAGNESIUM BLOOD(Performed 04/01/2023) * PHOSPHORUS BLOOD(Performed 04/01/2023) * LACTIC ACID BLOOD(Performed 04/01/2023) * COMPREHENSIVE METABOLIC PANEL(Performed 04/01/2023) * CBC W AUTO DIFFERENTIAL(Performed 04/01/2023) * VANCOMYCIN LEVEL RANDOM(Performed 04/01/2023) * GLUCOSE - POINT OF CARE(Performed 04/01/2023) * GLUCOSE - POINT OF CARE(Performed 04/01/2023) * GLUCOSE - POINT OF CARE(Performed 04/01/2023) * GLUCOSE - POINT OF CARE(Performed 03/31/2023) * HEMOGLOBIN A1C(Performed 06/23/2022) Performed for Type 1 diabetes mellitus during , antepartum ([facility]) * GLUCOSE PROTEIN KETONE URINE - POINT OF CAR(Performed 06/23/2022) Performed for Supervision of high-risk of young multigravida ([facility]) * URINE DRUG SCREEN IMMUNOASSAY(Performed 06/23/2022) Performed for Supervision of high-risk of young multigravida ([facility]) * IMAGING/RADIOLOGY/XRAY RESULTS ORDER(Performed 05/20/2022) * LAB RESULTS ORDER(Performed 05/20/2022) * GLUCOSE - POINT OF CARE(Performed 05/19/2022) * GLUCOSE - POINT OF CARE(Performed 05/19/2022) * GLUCOSE - POINT OF CARE(Performed 05/19/2022) * GLUCOSE - POINT OF CARE(Performed 05/19/2022) * GLUCOSE - POINT OF CARE(Performed 05/19/2022) * GLUCOSE - POINT OF CARE(Performed 05/19/2022) * GLUCOSE - POINT OF CARE(Performed 05/19/2022) * GLUCOSE - POINT OF CARE(Performed 05/19/2022) * GLUCOSE - POINT OF CARE(Performed 05/18/2022) * GLUCOSE - POINT OF CARE(Performed 05/18/2022) * GLUCOSE - POINT OF CARE(Performed 05/18/2022) * GLUCOSE - POINT OF CARE(Performed 05/18/2022) * GLUCOSE - POINT OF CARE(Performed 05/18/2022) * GLUCOSE - POINT OF CARE(Performed 05/18/2022) * GLUCOSE - POINT OF CARE(Performed 05/18/2022) * GLUCOSE - POINT OF CARE(Performed 05/18/2022) * PREPARE RBC LEUKOREDUCED UNIT(Performed 05/18/2022) * GLUCOSE - POINT OF CARE(Performed 05/17/2022) * GLUCOSE - POINT OF CARE(Performed 05/17/2022) * GLUCOSE - POINT OF CARE(Performed 05/17/2022) * GLUCOSE - POINT OF CARE(Performed 05/17/2022) * GLUCOSE - POINT OF CARE(Performed 05/17/2022) * GLUCOSE - POINT OF CARE(Performed 05/17/2022) * GLUCOSE - POINT OF CARE(Performed 05/17/2022) * GLUCOSE - POINT OF CARE(Performed 05/17/2022) * GLUCOSE - POINT OF CARE(Performed 05/17/2022) * GLUCOSE - POINT OF CARE(Performed 05/17/2022) * CBC W/O DIFFERENTIAL(Performed 05/17/2022) Performed for delivery delivered (H[facility]) * GLUCOSE - POINT OF CARE(Performed 05/17/2022) * GLUCOSE - POINT OF CARE(Performed 05/17/2022) * GLUCOSE - POINT OF CARE(Performed 05/17/2022) * GLUCOSE - POINT OF CARE(Performed 05/17/2022) * GLUCOSE - POINT OF CARE(Performed 05/17/2022) * GLUCOSE - POINT OF CARE(Performed 05/17/2022) * GLUCOSE - POINT OF CARE(Performed 2022) * GLUCOSE - POINT OF CARE(Performed 2022) * GLUCOSE - POINT OF CARE(Performed 2022) * PULSE OXIMETRY, CONTINUOUS(Performed 2022) Performed for delivery delivered (HCC) * GLUCOSE - POINT OF CARE(Performed 2022) * GLUCOSE - POINT OF CARE(Performed 2022) * GLUCOSE - POINT OF CARE(Performed 2022) * BLOOD GASES CORD NARENDRA (ISTAT)(Performed 2022) * PATHOLOGY TISSUE EXAM (STL)(Performed 2022) Performed for Diagnosis unknown * BLOOD GASES CORD ART (ISTAT)(Performed 2022) * NEURAXIAL BLOCK(Performed 2022) * SECTION (EMERGENCY)(Performed 2022) * GLUCOSE - POINT OF CARE(Performed 2022) * GLUCOSE - POINT OF CARE(Performed 2022) * MAGNESIUM BLOOD(Performed 2022) * CBC W/O DIFFERENTIAL(Performed 2022) * GLUCOSE - POINT OF CARE(Performed 2022) * GLUCOSE - POINT OF CARE(Performed 2022) * GLUCOSE - POINT OF CARE(Performed 2022) * GLUCOSE - POINT OF CARE(Performed 2022) * GLUCOSE - POINT OF CARE(Performed 2022) * GLUCOSE - POINT OF CARE(Performed 2022) * GLUCOSE - POINT OF CARE(Performed 2022) * GLUCOSE - POINT OF CARE(Performed 2022) * GLUCOSE - POINT OF CARE(Performed 05/15/2022) * GLUCOSE - POINT OF CARE(Performed 05/15/2022) * GLUCOSE - POINT OF CARE(Performed 05/15/2022) * GLUCOSE - POINT OF CARE(Performed 05/15/2022) * GLUCOSE - POINT OF CARE(Performed 05/15/2022) * GLUCOSE - POINT OF CARE(Performed 05/15/2022) * URINE DRUG SCREEN IMMUNOASSAY(Performed 05/15/2022) * GLUCOSE - POINT OF CARE(Performed 05/15/2022) * GLUCOSE - POINT OF CARE(Performed 05/15/2022) * GLUCOSE - POINT OF CARE(Performed 05/15/2022) * GLUCOSE - POINT OF CARE(Performed 05/15/2022) * GLUCOSE - POINT OF CARE(Performed 05/15/2022) * GLUCOSE - POINT OF CARE(Performed 05/15/2022) * GLUCOSE - POINT OF CARE(Performed 05/15/2022) * GLUCOSE - POINT OF CARE(Performed 05/15/2022) * SONOGRAM - COMPLETE(Performed 05/15/2022) Performed for Supervision of high-risk of young multigravida (HCC), Severe pre-eclampsia in third trimester (HCC) * NONSTRESS TEST(Performed 05/15/2022) Performed for Supervision of high-risk of young multigravida (HCC), Severe pre-eclampsia in third trimester (HCC) * GLUCOSE - POINT OF CARE(Performed 05/15/2022) * GLUCOSE - POINT OF CARE(Performed 05/15/2022) * GLUCOSE - POINT OF CARE(Performed 05/15/2022) * GLUCOSE - POINT OF CARE(Performed 05/15/2022) * GLUCOSE - POINT OF CARE(Performed 05/15/2022) * GLUCOSE - POINT OF CARE(Performed 05/15/2022) * GLUCOSE - POINT OF CARE(Performed 05/15/2022) * GLUCOSE - POINT OF CARE(Performed 05/15/2022) * GLUCOSE - POINT OF CARE(Performed 05/14/2022) * GLUCOSE - POINT OF CARE(Performed 05/14/2022) * GLUCOSE - POINT OF CARE(Performed 05/14/2022) * GLUCOSE - POINT OF CARE(Performed 05/14/2022) * GLUCOSE - POINT OF CARE(Performed 05/14/2022) * TYPE + SCREEN PANEL(Performed 05/14/2022) * HYDROXYBUTYRATE BETA(Performed 05/14/2022) Performed for Supervision of high-risk of young multigravida (HCC) * FIBRINOGEN ACTIVITY(Performed 05/14/2022) Performed for Supervision of high-risk of young multigravida (HCC) * PTT(Performed 05/14/2022) Performed for Supervision of high-risk of young multigravida ([facility]) * PT-INR(Performed 05/14/2022) Performed for Supervision of high-risk of young multigravida ([facility]) * COMPREHENSIVE METABOLIC PANEL(Performed 05/14/2022) Performed for Supervision of high-risk of young multigravida ([facility]) * CBC W AUTO DIFFERENTIAL(Performed 05/14/2022) Performed for Supervision of high-risk of young multigravida ([facility]) * GLUCOSE - POINT OF CARE(Performed 05/14/2022) * NONSTRESS TEST(Performed 05/06/2022) * GLUCOSE - POINT OF CARE(Performed 05/06/2022) * PROTEIN CREATININE RATIO URINE RANDOM PNL(Performed 05/06/2022) Performed for Supervision of high-risk of young multigravida ([facility]) * URINE MICROSCOPIC ONLY REFLEX TO CULTURE(Performed 05/06/2022) Performed for Supervision of high-risk of young multigravida ([facility]) * URINALYSIS REFLEX MICROSCOPIC REFLEX CULTURE(Performed 05/06/2022) Performed for Supervision of high-risk of young multigravida ([facility]) * CULTURE URINE(Performed 05/06/2022) Performed for Supervision of high-risk of young multigravida ([facility]) * GLUCOSE - POINT OF CARE(Performed 05/06/2022) * CHLAMYDIA + GC AMPLIFIED PROBE(Performed 05/06/2022) Performed for Supervision of high-risk of young multigravida ([facility]) * TRICHOMONAS RAPID TEST(Performed 05/06/2022) Performed for Supervision of high-risk of young multigravida (HCC) * SARS-COV-2 (COVID-19) FLU A/B RSV PCR RAPID(Performed 05/06/2022) Performed for Supervision of high-risk of young multigravida (HCC) * CBC W AUTO DIFFERENTIAL(Performed 05/06/2022) Performed for Supervision of high-risk of young multigravida (HCC) * COMPREHENSIVE METABOLIC PANEL(Performed 05/06/2022) Performed for Supervision of high-risk of young multigravida (HCC) * GLUCOSE - POINT OF CARE(Performed 05/06/2022) * KETONES QUALITATIVE URINE AUTO(Performed 03/18/2022) Performed for Supervision of high-risk of young multigravida ([facility]) * SONOGRAM - COMPLETE(Performed 03/18/2022) Performed for Encounter for anatomic survey ([facility]) * PROTEIN CREATININE RATIO URINE RANDOM PNL(Performed 03/18/2022) Performed for Supervision of high-risk of young multigravida ([facility]), Hx of preeclampsia, prior , currently ([facility]) * CULTURE URINE(Performed 03/18/2022) Performed for Supervision of high-risk of young multigravida ([facility]) * TYPE + SCREEN PANEL(Performed 03/18/2022) Performed for Supervision of high-risk of young multigravida (HCC) * RUBELLA ANTIBODY IGG(Performed 03/18/2022) Performed for Supervision of high-risk of young multigravida (HCC) * SYPHILIS ANTIBODY CASCADING REFLEX(Performed 03/18/2022) Performed for Supervision of high-risk of young multigravida (HCC) * CBC W AUTO DIFFERENTIAL(Performed 03/18/2022) Performed for Supervision of high-risk of young multigravida (HCC) * HEPATITIS B SURFACE ANTIGEN W RFLX CONFIRMATION(Performed 03/18/2022) Performed for Supervision of high-risk of young multigravida (HCC) * HEMOGLOBIN A1C(Performed 03/18/2022) Performed for Type 1 diabetes mellitus during , antepartum ([facility]) * HEPATITIS C ANTIBODY(Performed 03/18/2022) Performed for Supervision of high-risk of young multigravida (HCC) * HEPATITIS B SURFACE ANTIGEN W RFLX CONFIRMATION(Performed 03/18/2022) Performed for Supervision of high-risk of young multigravida ([facility]) * HIV-1 HIV-2 ANTIBODY + HIV P24 AG PANEL(Performed 03/18/2022) Performed for Supervision of high-risk of young multigravida ([facility]) * CYSTIC FIBROSIS MUTATION PANEL(Performed 03/18/2022) Performed for Supervision of high-risk of young multigravida ([facility]) * COMPREHENSIVE METABOLIC PANEL(Performed 03/18/2022) Performed for Supervision of high-risk of young multigravida ([facility]) * GLUCOSE PROTEIN KETONE URINE - POINT OF CAR(Performed 03/18/2022) Performed for Supervision of high-risk of young multigravida ([facility]) * URINE DRUG SCREEN IMMUNOASSAY(Performed 03/18/2022) Performed for Supervision of high-risk of young multigravida ([facility]) * IMAGING/RADIOLOGY/XRAY RESULTS ORDER(Performed 02/20/2020) * GLUCOSE - POINT OF CARE(Performed 02/17/2020) * GLUCOSE - POINT OF CARE(Performed 02/17/2020) * GLUCOSE - POINT OF CARE(Performed 02/17/2020) * GLUCOSE - POINT OF CARE(Performed 02/17/2020) * GLUCOSE - POINT OF CARE(Performed 02/17/2020) * GLUCOSE - POINT OF CARE(Performed 02/17/2020) * GLUCOSE - POINT OF CARE(Performed 02/17/2020) * GLUCOSE - POINT OF CARE(Performed 02/16/2020) * GLUCOSE - POINT OF CARE(Performed 02/16/2020) * GLUCOSE - POINT OF CARE(Performed 02/16/2020) * GLUCOSE - POINT OF CARE(Performed 02/16/2020) * KETONES QUALITATIVE URINE AUTO(Performed 02/16/2020) * GLUCOSE - POINT OF CARE(Performed 02/16/2020) * GLUCOSE - POINT OF CARE(Performed 02/16/2020) * GLUCOSE - POINT OF CARE(Performed 02/16/2020) * GLUCOSE - POINT OF CARE(Performed 02/16/2020) * GLUCOSE - POINT OF CARE(Performed 02/16/2020) * GLUCOSE - POINT OF CARE(Performed 02/16/2020) * CBC W AUTO DIFFERENTIAL(Performed 02/16/2020) * GLUCOSE - POINT OF CARE(Performed 02/16/2020) * GLUCOSE - POINT OF CARE(Performed 02/16/2020) * GLUCOSE - POINT OF CARE(Performed 02/15/2020) * GLUCOSE - POINT OF CARE(Performed 02/15/2020) * GLUCOSE - POINT OF CARE(Performed 02/15/2020) * PATHOLOGY TISSUE EXAM (STL)(Performed 02/15/2020) Performed for Hx of preeclampsia, prior , currently ([facility]) * GLUCOSE - POINT OF CARE(Performed 02/15/2020) * BLOOD GASES CORD NARENDRA(Performed 02/15/2020) Performed for Hx of preeclampsia, prior , currently ([facility]) * BLOOD GASES CORD ARTERIAL(Performed 02/15/2020) Performed for Hx of preeclampsia, prior , currently ([facility]) * GLUCOSE - POINT OF CARE(Performed 02/15/2020) * GLUCOSE - POINT OF CARE(Performed 02/15/2020) * GLUCOSE - POINT OF CARE(Performed 02/15/2020) * GLUCOSE - POINT OF CARE(Performed 02/15/2020) * GLUCOSE - POINT OF CARE(Performed 02/15/2020) * GLUCOSE - POINT OF CARE(Performed 02/15/2020) * NEURAXIAL BLOCK(Performed 02/15/2020) * GLUCOSE - POINT OF CARE(Performed 02/15/2020) * GLUCOSE - POINT OF CARE(Performed 02/15/2020) * XR CHEST 1VW(Performed 02/15/2020) Performed for Severe pre-eclampsia in third trimester ([facility]) * GLUCOSE - POINT OF CARE(Performed 02/15/2020) * GLUCOSE - POINT OF CARE(Performed 02/15/2020) * GLUCOSE - POINT OF CARE(Performed 02/15/2020) * GLUCOSE - POINT OF CARE(Performed 02/15/2020) * TYPE + SCREEN PANEL(Performed 02/15/2020) * GLUCOSE - POINT OF CARE(Performed 02/15/2020) * URINE MICROSCOPIC ONLY REFLEX TO CULTURE(Performed 02/15/2020) Performed for Hx of preeclampsia, prior , currently ([facility]) * PROTEIN CREATININE RATIO URINE RANDOM PNL(Performed 02/15/2020) Performed for Hx of preeclampsia, prior , currently ([facility]) * URINALYSIS REFLEX MICROSCOPIC REFLEX CULTURE(Performed 02/15/2020) Performed for Hx of preeclampsia, prior , currently ([facility]) * CULTURE URINE(Performed 02/15/2020) Performed for Hx of preeclampsia, prior , currently ([facility]) * BLOOD TYPE VERIFICATION(Performed 02/15/2020) * CBC W/O DIFFERENTIAL(Performed 02/15/2020) Performed for Hx of preeclampsia, prior , currently ([facility]) * COMPREHENSIVE METABOLIC PANEL(Performed 02/15/2020) Performed for Hx of preeclampsia, prior , currently ([facility]) * SARS-COV-2 (COVID-19) RAPID(Performed 02/15/2020) Performed for Hx of preeclampsia, prior , currently ([facility]) * NONSTRESS TEST(Performed 02/13/2020) * GLUCOSE - POINT OF CARE(Performed 02/13/2020) * GLUCOSE - POINT OF CARE(Performed 02/13/2020) * GLUCOSE - POINT OF CARE(Performed 02/13/2020) * URIC ACID BLOOD(Performed 02/13/2020) Performed for Swelling of lower extremity during in third trimester ([facility]) * PROTEIN CREATININE RATIO URINE RANDOM PNL(Performed 02/13/2020) Performed for Swelling of lower extremity during in third trimester ([facility]) * COMPREHENSIVE METABOLIC PANEL(Performed 02/13/2020) Performed for Swelling of lower extremity during in third trimester ([facility]) * CBC W/O DIFFERENTIAL(Performed 02/13/2020) Performed for Swelling of lower extremity during in third trimester ([facility]) * SONOGRAM - COMPLETE(Performed 01/30/2020) * ECHO (Performed 01/24/2020) * GLUCOSE PROTEIN KETONE URINE - POINT OF CAR(Performed 01/18/2020) Performed for , unspecified gestational age ([facility]) * SONOGRAM - COMPLETE(Performed 01/04/2020) * URINE DRUG SCREEN IMMUNOASSAY(Performed 01/04/2020) Performed for 28 weeks gestation of ([facility]) * PROTEIN CREATININE RATIO URINE RANDOM PNL(Performed 01/04/2020) Performed for 28 weeks gestation of ([facility]) * COMPREHENSIVE METABOLIC PANEL(Performed 01/04/2020) Performed for 28 weeks gestation of ([facility]) * SYPHILIS ANTIBODY CASCADING REFLEX(Performed 01/04/2020) Performed for 28 weeks gestation of ([facility]) * HIV-1 HIV-2 ANTIBODY + HIV P24 AG PANEL(Performed 01/04/2020) Performed for 28 weeks gestation of ([facility]) * CBC W AUTO DIFFERENTIAL(Performed 01/04/2020) Performed for 28 weeks gestation of ([facility]) * HEMOGLOBIN A1C(Performed 01/04/2020) Performed for 28 weeks gestation of ([facility]) * GLUCOSE - POINT OF CARE(Performed 01/04/2020) * GLUCOSE PROTEIN KETONE URINE - POINT OF CAR(Performed 01/04/2020) Performed for 28 weeks gestation of ([facility]) * GLUCOSE PROTEIN KETONE URINE - POINT OF CAR(Performed 12/29/2019) Performed for , unspecified gestational age ([facility]) * GLUCOSE PROTEIN KETONE URINE - POINT OF CAR(Performed 11/15/2019) Performed for , unspecified gestational age ([facility]) * SONOGRAM - COMPLETE(Performed 11/08/2019) Performed for Type 1 diabetes mellitus during in second trimester ([facility]) * FIRST TRI NUCHAL TRANSLUCENCY W:SEQ SCREEN(Performed 09/20/2019) * URINE MICROSCOPIC ONLY REFLEX TO CULTURE(Performed 09/20/2019) Performed for , unspecified gestational age ([facility]) * URINALYSIS REFLEX MICROSCOPIC REFLEX CULTURE(Performed 09/20/2019) Performed for , unspecified gestational age ([facility]) * CULTURE URINE(Performed 09/20/2019) Performed for , unspecified gestational age ([facility]) * GLUCOSE PROTEIN KETONE URINE - POINT OF CAR(Performed 09/20/2019) Performed for , unspecified gestational age ([facility]) * GLUCOSE PROTEIN KETONE URINE - POINT OF CAR(Performed 09/13/2019) Performed for , unspecified gestational age ([facility]) * GLUCOSE - POINT OF CARE(Performed 09/06/2019) * GLUCOSE PROTEIN KETONE URINE - POINT OF CAR(Performed 09/06/2019) Performed for 11 weeks gestation of ([facility]) * PAP THINPREP(Performed 08/30/2019) Performed for High risk teen in first trimester ([facility]) * TYPE + SCREEN PANEL(Performed 08/30/2019) Performed for , unspecified gestational age ([facility]), High risk teen in first trimester ([facility]) * CBC W AUTO DIFFERENTIAL(Performed 08/30/2019) Performed for , unspecified gestational age ([facility]), High risk teen in first trimester ([facility]) * URINE DRUG SCREEN IMMUNOASSAY(Performed 08/30/2019) Performed for High risk teen in first trimester ([facility]) * TSH REFLEX FREE T4(Performed 08/30/2019) Performed for Type 1 diabetes mellitus during in first trimester ([facility]) * HEMOGLOBIN A1C(Performed 08/30/2019) Performed for Type 1 diabetes mellitus during in first trimester ([facility]) * COMPREHENSIVE METABOLIC PANEL(Performed 08/30/2019) Performed for High risk teen in first trimester (HCC) * TRICHOMONAS RAPID TEST(Performed 08/30/2019) Performed for High risk teen in first trimester (HCC) * CHLAMYDIA + GC AMPLIFIED PROBE(Performed 08/30/2019) Performed for High risk teen in first trimester (HCC) * CULTURE URINE(Performed 08/30/2019) Performed for High risk teen in first trimester (HCC) * RUBELLA ANTIBODY IGG(Performed 08/30/2019) Performed for , unspecified gestational age (HCC), High risk teen in first trimester (HCC) * SYPHILIS ANTIBODY CASCADING REFLEX(Performed 08/30/2019) Performed for , unspecified gestational age (HCC), High risk teen in first trimester (HCC) * HEPATITIS B SURFACE ANTIGEN W RFLX CONFIRMATION(Performed 08/30/2019) Performed for , unspecified gestational age (HCC), High risk teen in first trimester (HCC) * HEPATITIS C ANTIBODY(Performed 08/30/2019) Performed for , unspecified gestational age (HCC) * HEPATITIS B SURFACE ANTIGEN W RFLX CONFIRMATION(Performed 08/30/2019) Performed for , unspecified gestational age (HCC), High risk teen in first trimester (HCC) * GLUCOSE PROTEIN KETONE URINE - POINT OF CAR(Performed 08/30/2019) Performed for , unspecified gestational age (HCC) * SONOGRAM - COMPLETE(Performed 08/30/2019) Performed for Encounter for anatomic survey ([facility]) * ANEUPLOIDY SCREENING(Performed 08/30/2019) * IMAGING/RADIOLOGY/XRAY RESULTS ORDER(Performed 02/19/2017) * GLUCOSE - POINT OF CARE(Performed 02/18/2017) * GLUCOSE - POINT OF CARE(Performed 02/18/2017) * GLUCOSE - POINT OF CARE(Performed 02/18/2017) * GLUCOSE - POINT OF CARE(Performed 02/18/2017) * GLUCOSE - POINT OF CARE(Performed 02/18/2017) * GLUCOSE - POINT OF CARE(Performed 02/17/2017) * GLUCOSE - POINT OF CARE(Performed 02/17/2017) * GLUCOSE - POINT OF CARE(Performed 02/17/2017) * GLUCOSE - POINT OF CARE(Performed 02/17/2017) * GLUCOSE - POINT OF CARE(Performed 02/17/2017) * GLUCOSE - POINT OF CARE(Performed 02/17/2017) * GLUCOSE - POINT OF CARE(Performed 02/17/2017) * GLUCOSE - POINT OF CARE(Performed 02/16/2017) * GLUCOSE - POINT OF CARE(Performed 02/16/2017) * GLUCOSE - POINT OF CARE(Performed 02/16/2017) * GLUCOSE - POINT OF CARE(Performed 02/16/2017) * GLUCOSE - POINT OF CARE(Performed 02/16/2017) * GLUCOSE - POINT OF CARE(Performed 02/16/2017) * GLUCOSE - POINT OF CARE(Performed 02/16/2017) * GLUCOSE - POINT OF CARE(Performed 02/16/2017) * GLUCOSE - POINT OF CARE(Performed 02/16/2017) * GLUCOSE - POINT OF CARE(Performed 02/16/2017) * GLUCOSE - POINT OF CARE(Performed 02/15/2017) * GLUCOSE - POINT OF CARE(Performed 02/15/2017) * GLUCOSE - POINT OF CARE(Performed 02/15/2017) * GLUCOSE - POINT OF CARE(Performed 02/15/2017) * GLUCOSE - POINT OF CARE(Performed 02/15/2017) * GLUCOSE - POINT OF CARE(Performed 02/15/2017) * GLUCOSE - POINT OF CARE(Performed 02/15/2017) * GLUCOSE - POINT OF CARE(Performed 02/15/2017) * CBC W AUTO DIFFERENTIAL(Performed 02/15/2017) * GLUCOSE - POINT OF CARE(Performed 02/15/2017) * GLUCOSE - POINT OF CARE(Performed 02/15/2017) * GLUCOSE - POINT OF CARE(Performed 02/15/2017) * GLUCOSE - POINT OF CARE(Performed 02/15/2017) * GLUCOSE - POINT OF CARE(Performed 02/15/2017) * GLUCOSE - POINT OF CARE(Performed 02/15/2017) * GLUCOSE - POINT OF CARE(Performed 02/15/2017) * GLUCOSE - POINT OF CARE(Performed 02/15/2017) * GLUCOSE - POINT OF CARE(Performed 02/14/2017) * GLUCOSE - POINT OF CARE(Performed 02/14/2017) * GLUCOSE - POINT OF CARE(Performed 02/14/2017) * GLUCOSE - POINT OF CARE(Performed 02/14/2017) * GLUCOSE - POINT OF CARE(Performed 02/14/2017) * GLUCOSE - POINT OF CARE(Performed 02/14/2017) * GLUCOSE - POINT OF CARE(Performed 02/14/2017) * GLUCOSE - POINT OF CARE(Performed 02/14/2017) * GLUCOSE - POINT OF CARE(Performed 02/14/2017) * GLUCOSE - POINT OF CARE(Performed 02/14/2017) * GLUCOSE - POINT OF CARE(Performed 02/14/2017) * GLUCOSE - POINT OF CARE(Performed 02/14/2017) * MAGNESIUM BLOOD(Performed 02/14/2017) * GLUCOSE - POINT OF CARE(Performed 02/14/2017) * BLOOD GASES CORD NARENDRA (ISTAT)(Performed 02/14/2017) * BLOOD GASES CORD ART ([facility])(Performed 02/14/2017) * PATHOLOGY TISSUE EXAM (STL)(Performed 02/14/2017) Performed for Supervision of high risk in second trimester (HCC) * GLUCOSE - POINT OF CARE(Performed 02/14/2017) * GLUCOSE - POINT OF CARE(Performed 02/14/2017) * CBC W AUTO DIFFERENTIAL(Performed 02/14/2017) * MAGNESIUM BLOOD(Performed 02/14/2017) * COMPREHENSIVE METABOLIC PANEL(Performed 02/14/2017) * GLUCOSE - POINT OF CARE(Performed 02/14/2017) * GLUCOSE - POINT OF CARE(Performed 02/14/2017) * GLUCOSE - POINT OF CARE(Performed 02/13/2017) * GLUCOSE - POINT OF CARE(Performed 02/13/2017) * GLUCOSE - POINT OF CARE(Performed 02/13/2017) * GLUCOSE - POINT OF CARE(Performed 02/13/2017) * GLUCOSE - POINT OF CARE(Performed 02/13/2017) * GLUCOSE - POINT OF CARE(Performed 02/13/2017) * GLUCOSE - POINT OF CARE(Performed 02/13/2017) * GLUCOSE - POINT OF CARE(Performed 02/13/2017) * GLUCOSE - POINT OF CARE(Performed 02/13/2017) * NEURAXIAL BLOCK(Performed 02/13/2017) * GLUCOSE - POINT OF CARE(Performed 02/13/2017) * GLUCOSE - POINT OF CARE(Performed 02/13/2017) * GLUCOSE - POINT OF CARE(Performed 02/13/2017) * GLUCOSE - POINT OF CARE(Performed 02/13/2017) * GLUCOSE - POINT OF CARE(Performed 02/13/2017) * GLUCOSE - POINT OF CARE(Performed 02/13/2017) * GLUCOSE - POINT OF CARE(Performed 02/13/2017) * GLUCOSE - POINT OF CARE(Performed 02/13/2017) * GLUCOSE - POINT OF CARE(Performed 02/13/2017) * GLUCOSE - POINT OF CARE(Performed 02/13/2017) * GLUCOSE - POINT OF CARE(Performed 02/13/2017) * GLUCOSE - POINT OF CARE(Performed 02/13/2017) * GLUCOSE - POINT OF CARE(Performed 02/13/2017) * GLUCOSE - POINT OF CARE(Performed 02/12/2017) * GLUCOSE - POINT OF CARE(Performed 02/12/2017) * GLUCOSE - POINT OF CARE(Performed 02/12/2017) * GLUCOSE - POINT OF CARE(Performed 02/12/2017) * GLUCOSE - POINT OF CARE(Performed 02/12/2017) * GLUCOSE - POINT OF CARE(Performed 02/12/2017) * GLUCOSE - POINT OF CARE(Performed 02/12/2017) * GLUCOSE - POINT OF CARE(Performed 02/12/2017) * GLUCOSE - POINT OF CARE(Performed 02/12/2017) * GLUCOSE - POINT OF CARE(Performed 02/12/2017) * GLUCOSE - POINT OF CARE(Performed 02/12/2017) * GLUCOSE - POINT OF CARE(Performed 02/12/2017) * CULTURE STREP B(Performed 02/12/2017) Performed for Supervision of high risk in second trimester ([facility]) * GLUCOSE - POINT OF CARE(Performed 02/12/2017) * GLUCOSE - POINT OF CARE(Performed 02/12/2017) * GLUCOSE - POINT OF CARE(Performed 02/12/2017) * GLUCOSE - POINT OF CARE(Performed 02/12/2017) * GLUCOSE - POINT OF CARE(Performed 02/12/2017) * GLUCOSE - POINT OF CARE(Performed 02/12/2017) * GLUCOSE - POINT OF CARE(Performed 02/11/2017) * GLUCOSE - POINT OF CARE(Performed 02/11/2017) * GLUCOSE - POINT OF CARE(Performed 02/11/2017) * GLUCOSE - POINT OF CARE(Performed 02/11/2017) * TYPE + SCREEN PANEL(Performed 02/11/2017) Performed for Type 1 diabetes mellitus in , third trimester ([facility]), Supervision of high risk in second trimester ([facility]) * HEMOGLOBIN A1C(Performed 02/11/2017) Performed for Type 1 diabetes mellitus in , third trimester ([facility]), Supervision of high risk in second trimester ([facility]) * URINE DRUG SCREEN IMMUNOASSAY(Performed 02/11/2017) Performed for Type 1 diabetes mellitus in , third trimester ([facility]), Supervision of high risk in second trimester ([facility]) * PROTEIN CREATININE RATIO URINE RANDOM PNL(Performed 02/11/2017) Performed for Type 1 diabetes mellitus in , third trimester ([facility]), Supervision of high risk in second trimester ([facility]) * URIC ACID BLOOD(Performed 02/11/2017) Performed for Type 1 diabetes mellitus in , third trimester ([facility]), Supervision of high risk in second trimester ([facility]) * LDH BLOOD(Performed 02/11/2017) Performed for Type 1 diabetes mellitus in , third trimester ([facility]), Supervision of high risk in second trimester ([facility]) * COMPREHENSIVE METABOLIC PANEL(Performed 02/11/2017) Performed for Type 1 diabetes mellitus in , third trimester ([facility]), Supervision of high risk in second trimester ([facility]) * CBC W AUTO DIFFERENTIAL(Performed 02/11/2017) Performed for Type 1 diabetes mellitus in , third trimester ([facility]), Supervision of high risk in second trimester ([facility]) * SONOGRAM - COMPLETE(Performed 02/11/2017) Performed for Type 1 diabetes mellitus in , first trimester ([facility]), High risk teen , first trimester ([facility]) * BIOPHYSICAL PROFILE W NST(Performed 01/28/2017) Performed for Type 1 diabetes mellitus in , third trimester ([facility]), Supervision of high risk in second trimester ([facility]) * SONOGRAM - COMPLETE(Performed 01/14/2017) Performed for Type 1 diabetes mellitus in , first [facility] [facility]), High risk teen , first trimester ([facility]) * SONOGRAM - COMPLETE(Performed 12/17/2016) Performed for Type 1 diabetes mellitus in , first trimester ([facility]), High risk teen , first trimester ([facility]) * ECHO CONSULT - (Performed 12/10/2016) Performed for Type 1 diabetes mellitus in , first trimester ([facility]), High risk teen , first trimester ([facility]) * SONOGRAM - COMPLETE(Performed 11/19/2016) Performed for Type 1 diabetes mellitus in , first trimester ([facility]), High risk teen , first trimester ([facility]) * LAB RESULTS ORDER(Performed 10/28/2016) * GLUCOSE - POINT OF CARE(Performed 10/26/2016) * GLUCOSE - POINT OF CARE(Performed 10/26/2016) * GLUCOSE - POINT OF CARE(Performed 10/26/2016) * GLUCOSE - POINT OF CARE(Performed 10/26/2016) * GLUCOSE - POINT OF CARE(Performed 10/26/2016) * GLUCOSE - POINT OF CARE(Performed 10/26/2016) * GLUCOSE - POINT OF CARE(Performed 10/26/2016) * GLUCOSE - POINT OF CARE(Performed 10/26/2016) * GLUCOSE - POINT OF CARE(Performed 10/26/2016) * GLUCOSE - POINT OF CARE(Performed 10/26/2016) * GLUCOSE - POINT OF CARE(Performed 10/26/2016) * GLUCOSE - POINT OF CARE(Performed 10/25/2016) * GLUCOSE - POINT OF CARE(Performed 10/25/2016) * GLUCOSE - POINT OF CARE(Performed 10/25/2016) * GLUCOSE - POINT OF CARE(Performed 10/25/2016) * GLUCOSE - POINT OF CARE(Performed 10/25/2016) * GLUCOSE - POINT OF CARE(Performed 10/25/2016) * GLUCOSE - POINT OF CARE(Performed 10/25/2016) * GLUCOSE - POINT OF CARE(Performed 10/25/2016) * GLUCOSE - POINT OF CARE(Performed 10/25/2016) * GLUCOSE - POINT OF CARE(Performed 10/25/2016) * GLUCOSE - POINT OF CARE(Performed 10/25/2016) * GLUCOSE - POINT OF CARE(Performed 10/25/2016) * GLUCOSE - POINT OF CARE(Performed 10/24/2016) * GLUCOSE - POINT OF CARE(Performed 10/24/2016) * GLUCOSE - POINT OF CARE(Performed 10/24/2016) * GLUCOSE - POINT OF CARE(Performed 10/24/2016) * GLUCOSE - POINT OF CARE(Performed 10/24/2016) * GLUCOSE - POINT OF CARE(Performed 10/24/2016) * GLUCOSE - POINT OF CARE(Performed 10/24/2016) * GLUCOSE - POINT OF CARE(Performed 10/24/2016) * GLUCOSE - POINT OF CARE(Performed 10/24/2016) * GLUCOSE - POINT OF CARE(Performed 10/24/2016) * GLUCOSE - POINT OF CARE(Performed 10/23/2016) * GLUCOSE - POINT OF CARE(Performed 10/23/2016) * GLUCOSE - POINT OF CARE(Performed 10/23/2016) * GLUCOSE - POINT OF CARE(Performed 10/23/2016) * GLUCOSE - POINT OF CARE(Performed 10/23/2016) * GLUCOSE - POINT OF CARE(Performed 10/23/2016) * GLUCOSE - POINT OF CARE(Performed 10/23/2016) * GLUCOSE - POINT OF CARE(Performed 10/23/2016) * EKG 12-LEAD(Performed 10/23/2016) Performed for Type 1 diabetes mellitus in , second trimester ([facility]) * GLUCOSE - POINT OF CARE(Performed 10/23/2016) * GLUCOSE - POINT OF CARE(Performed 10/23/2016) * GLUCOSE - POINT OF CARE(Performed 10/23/2016) * BLOOD TYPE VERIFICATION(Performed 10/22/2016) * TYPE + SCREEN PANEL(Performed 10/22/2016) * TSH(Performed 10/22/2016) * HEMOGLOBIN A1C(Performed 10/22/2016) * COMPREHENSIVE METABOLIC PANEL(Performed 10/22/2016) * CBC W AUTO DIFFERENTIAL(Performed 10/22/2016) * GLUCOSE - POINT OF CARE(Performed 10/22/2016) * SONOGRAM - COMPLETE(Performed 10/22/2016) Performed for Type 1 diabetes mellitus in , first trimester ([facility]), High risk teen , first trimester ([facility]) * SONOGRAM - COMPLETE(Performed 10/01/2016) Performed for Type 1 diabetes mellitus in , first trimester ([facility]), High risk teen , first trimester ([facility]) * SURGICAL CASE CANCELLED PRIOR TO ARRIVAL Performed for Failure to progress, Repeat section Results * (ABNORMAL) GLUCOSE - POINT OF CARE (09/16/2023 2:51 PM MAIL DISTRIBUTION CLERK) Only the most recent of365 resultswithin the time period is included. [facility] Glucose WB/POC 305(H) 70 - 106 mg/dL 09/17/2023 6:45 AM MAIL DISTRIBUTION CLERK [facility] Specimen Type Cap Fingerstick 2023 6:45 AM MAIL DISTRIBUTION CLERK [facility] Blood BLOOD SPECIMEN / Unknown 09/16/2023 2:51 PM MAIL DISTRIBUTION CLERK 09/17/2023 6:45 AM MAIL DISTRIBUTION CLERK Joseph Dobbins DO LAB - POINT OF CARE ORDERABLES [facility] [address] [place] [id number] [phone] * (ABNORMAL) CBC W AUTO DIFFERENTIAL (09/16/2023 12:14 PM MAIL DISTRIBUTION CLERK) Only the most recent of26 resultswithin the time period is included. [facility] WBC 8.4 4.0 - 10.7 x10E9/L 09/16/2023 12:17 PM [facility] RBC Count 4.77 3.90 - 5.20 x10E12/L 09/16/2023 12:17 PM [facility] Hemoglobin 14.6 11.9 - 15.8 g/dL 09/16/2023 12:17 PM [facility] Hematocrit 43.1 34.8 - 46.1 % 09/16/2023 12:17 PM [facility] MCV 90.4 80.0 - 98.0 fL 09/16/2023 12:17 PM [facility] MCH 30.6 26.7 - 33.6 pg 09/16/2023 12:17 PM [facility] MCHC 33.9 31.7 - 36.3 g/dL 09/16/2023 12:17 PM [facility] RDW-CV 11.4 11.3 - 14.8 % 09/16/2023 12:17 PM [facility] Platelet Count 446(H) 150 - 420 x10E9/L 09/16/2023 12:17 PM [facility] MPV 8.5 7.8 - 11.4 fL 09/16/2023 12:17 PM [facility] Neutrophil % 73.4 41.0 - 74.0 % 09/16/2023 12:17 PM [facility] Lymphocyte % 21.5 17.0 - 47.0 % 09/16/2023 12:17 PM [facility] Monocyte % 2.6(L) 3.0 - 11.0 % 09/16/2023 12:17 PM [facility] Eosinophil % 2.0 0.0 - 7.0 % 09/16/2023 12:17 PM [facility] Basophil % 0.4 0.0 - 1.6 % 09/16/2023 12:17 PM [facility] Immature Granulocytes % 0.1 0.0 - 1.0 % 09/16/2023 12:17 PM [facility] Neutrophil Absolute 6.14 1.60 - 7.50 x10E9/L 09/16/2023 12:17 PM [facility] Lymphocyte Absolute 1.80 1.00 - 4.40 x10E9/L 09/16/2023 12:17 PM [facility] Monocyte Absolute 0.22 0.15 - 1.00 x10E9/L 09/16/2023 12:17 PM [facility] Eosinophil Absolute 0.17 0.00 - 0.60 x10E9/L 09/16/2023 12:17 PM [facility] Basophil Absolute 0.03 0.00 - 0.13 x10E9/L 09/16/2023 12:17 PM [facility] Blood BLOOD SPECIMEN / Unknown Venipuncture / Unknown 09/16/2023 12:14 PM MAIL DISTRIBUTION CLERK 09/16/2023 12:14 PM MAIL DISTRIBUTION CLERK Joseph Dobbins DO LAB - HEMATOLOGY ORD ERABLES [facility] [address] [phone] * (ABNORMAL) COMPREHENSIVE METABOLIC PANEL (09/16/2023 12:14 PM MAIL DISTRIBUTION CLERK) Only the most recent of18 resultswithin the time period is included. Glucose 542(HH) 73 - 118 mg/dL 09/16/2023 12:36 PM [facility] Sodium 136 128 - 145 mmol/L 09/16/2023 12:36 PM [facility] Potassium 4.8 3.6 - 5.1 mmol/L 09/16/2023 12:36 PM [facility] Chloride 95(L) 98 - 108 mmol/L 09/16/2023 12:36 PM [facility] CO2 28 18 - 33 mmol/L 09/16/2023 12:36 PM [facility] Calcium 9.6 8 - 10.3 mg/dL 09/16/2023 12:36 PM [facility] Anion Gap 13 8 - 16 mmol/L 09/16/2023 12:36 PM [facility] BUN 20 7 - 22 mg/dL 09/16/2023 12:36 PM [facility] Creatinine 0.90 0.60 - 1.20 mg/dL 09/16/2023 12:36 PM MAIL DISTRIBUTION CLERK [facility] Alkaline Phosphatase 114 42 - 141 U/L 09/16/2023 12:36 PM MAIL DISTRIBUTION CLERK [facility] ALT 17 10 - 47 U/L 09/16/2023 12:36 PM MAIL DISTRIBUTION CLERK [facility] AST 16 11 - 38 U/L 09/16/2023 12:36 PM [facility] Protein Total 7.2 6.4 - 8.1 gm/dL 09/16/2023 12:36 PM MAIL DISTRIBUTION CLERK [facility] Albumin 3.7 3.3 - 5.5 gm/dL 09/16/2023 12:36 PM [facility] Bilirubin Total 0.7 0.2 - 1.6 mg/dL 09/16/2023 12:36 PM [facility] eGFR by CKD-EPI 90 >=90 mL/min/1.7 3 m2 09/16/2023 12:36 PM [facility] Blood BLOOD SPECIMEN / Unknown Venipuncture / Unknown 09/16/2023 12:14 PM MAIL DISTRIBUTION CLERK 09/16/2023 12:14 PM [facility] Narrative [facility] - 09/16/2023 12:36 PM MAIL DISTRIBUTION CLERK INST QC: OK CHEM QC: OK HEM: -15 LIP: 136 ICT: 1 CHEMISTRY QC: 96 ACCEPTABLE MINIMUM: 50 Joseph Dobbins DO LAB - CHEMISTRY ORDE DAHLIA [facility] [address] [place] [address] * CARDIAC RHYTHM STRIP ORDER (04/25/2023 2:44 AM CDT) Narrative 04/25/2023 2:44 AM CDT Ordered by an unspecified provider. Scanned Document CARDIAC SERVICES ORD ERABLES * (ABNORMAL) RENAL FUNCTION PANEL (04/17/2023 3:31 AM CDT) Only the most recent of4 resultswithin the time period is included. Glucose 162(H) 70 - 105 mg/dL 04/17/2023 4:09 AM CDT [facility] Sodium 136 136 - 145 mmol/L 04/17/2023 4:09 AM CDT [facility] Potassium 4.3 3.5 - 5.1 mmol/L 04/17/2023 4:09 AM CDT [facility] Chloride 104 98 - 107 mmol/L 04/17/2023 4:09 AM CDT [facility] CO2 23 22 - 29 mmol/L 04/17/2023 4:09 AM CDT [facility] Calcium 8.6 8.4 - 10.4 mg/dL 04/17/2023 4:09 AM CDT [facility] Anion Gap 9 6 - 16 mmol/L 04/17/2023 4:09 AM CDT [facility] BUN 29(H) 5.3 - 18.7 mg/dL 04/17/2023 4:09 AM CDT [facility] Creatinine 0.79 0.57 - 1.11 mg/dL 04/17/2023 4:09 AM CDT [facility] Albumin 2.2(L) 3.4 - 5.0 gm/dL 04/17/2023 4:09 AM CDT [facility] Phosphorus 3.0 2.3 - 4.7 mg/dL 04/17/2023 4:09 AM T [facility] eGFR by CKD-EPI >90 >=90 mL/min/1.7 3 m2 04/17/2023 4:09 AM CDT [facility] Blood BLOOD SPECIMEN / Unknown Venipuncture / Unknown 04/17/2023 3:31 AM CDT 04/17/2023 3:43 AM CDT James Benito MD LAB - CHEMISTRY M[facility]RIS VILLAGOME[facility] Organization Address City/State/[facility] Co de Phone Number [facility] [address] [place] [address] * (ABNORMAL) DIFFERENTIAL MANUAL (04/16/2023 5:43 AM CDT) Only the most recent of8 resultswithin the time period is included. WBC Auto 22.0 x10E9/L 04/16/2023 7:11 AM CDT [facility] WBC Corrected 04/16/2023 7:11 AM CDT [facility] nRBC 2 /100 WBC 04/16/2023 7:11 AM CDT [facility] Neutrophil % Manual 64 44 - 73 % 04/16/2023 7:11 AM CDT [facility] Lymphocytes % Manual 32 20 - 43 % 04/16/2023 7:11 AM CDT [facility] Monocytes % Manual 1(L) 5 - 13 % 04/16/2023 7:11 AM CDT [facility] Eosinophils % Manual 1 0 - 6 % 04/16/2023 7:11 AM CDT [facility] Neutrophils Absolute Manual 14.08(H) 2.01 - 7.14 x10E9/L 04/16/2023 7:11 AM CDT [facility] Lymphocytes Absolute Manual 7.04(H) 1.07 - 3.94 x10E9/L 04/16/2023 7:11 AM CDT [facility] Monocytes Absolute Manual 0.22(L) 0.26 - 1.07 x10E9/L 04/16/2023 7:11 AM CDT [facility] Eosinophils Absolute Manual 0.22 0.00 - 0.47 x10E9/L 04/16/2023 7:11 AM CDT [facility] Metamyelocytes Absolute Manual 0.22(H) <=0.00 x10E9/L 04/16/2023 7:11 AM CDT [facility] Myelocytes Absolute Manual 0.22(H) <=0.00 x10E9/L 04/16/2023 7:11 AM CDT [facility] [employer] Manual 1(H) <=0 % 04/16/2023 7:11 AM CDT [facility] Myelocytes % Manual 1(H) <=0 % 04/16/2023 7:11 AM CDT [facility] Cells Counted 100 # cells 04/16/2023 7:11 AM CDT [facility] Platelet Estimation Increased (A) Normal, Adequate platelets 04/16/2023 7:11 AM CDT [facility] RBC Morphology Normal 04/16/2023 7:11 AM CDT [facility] WBC Morph Normal 04/16/2023 7:11 AM CDT [facility] Blood BLOOD SPECIMEN / Unknown Venipuncture / Unknown 04/16/2023 5:43 AM CDT 04/16/2023 5:49 AM CDT James Benito MD LAB - HEMATOLOGY ORD ERABLES Performing Organization Address [facility]/ZIP Co de Phone Number [facility] [address] [place], [place] [phone] * (ABNORMAL) FOLATE (04/16/2023 5:43 AM CDT) Pathologist [facility] Folate 4.7(L) 7.0 - 31.4 ng/mL 04/16/2023 6:50 AM CDT [facility] Blood BLOOD SPECIMEN / Unknown Venipuncture / Unknown 04/16/2023 5:43 AM CDT 04/16/2023 5:49 AM CDT James Benito MD LAB - CHEMISTRY MORRIS VILLAGOMEZ Performing Organization Address [facility] Co de Phone Number [facility] [address] [place] [phone] * (ABNORMAL) VITAMIN B12 (04/16/2023 5:43 AM CDT) Pathologist [facility] Vitamin B12 1,002(H) 213 - 816 pg/mL 04/16/2023 6:50 AM CDT [facility] Blood BLOOD SPECIMEN / Unknown Venipuncture / Unknown 04/16/2023 5:43 AM CDT 04/16/2023 5:49 AM CDT James Benito MD LAB - CHEMISTRY MORRIS VILLAGOMEZ Performing Organization Address [facility] Co de Phone Number [facility] [address] [place] [phone] * IRON + TRANSFERRIN PANEL (04/16/2023 5:43 AM CDT) Only the most recent of2 resultswithin the time period is included. Iron 75 40 - 150 ug/dL 04/16/2023 11:03 AM CDT [facility] Transferrin 198 174 - 382 mg/dL 04/16/2023 11:03 AM CDT [facility] TIBC Calculated 248 240 - 450 ug/dL 04/16/2023 11:03 AM CDT [facility] Iron Saturation % 30 20 - 50 % 04/16/2023 11:03 AM CDT [facility] Blood BLOOD SPECIMEN / Unknown Venipuncture / Unknown 04/16/2023 5:43 AM CDT 04/16/2023 5:49 AM CDT James Benito MD LAB - CHEMISTRY ORDE [facility] Performing Organization Address City/[facility]/ZIP Co de Phone Number [facility] [address] [place] [address] * (ABNORMAL) FERRITIN (04/16/2023 5:43 AM CDT) Only the most recent of7 resultswithin the time period is included. [facility] Signature Ferritin 557(H) 5 - 204 ng/mL 04/16/2023 6:50 AM CDT [facility] Blood BLOOD SPECIMEN / Unknown Venipuncture / Unknown 04/16/2023 5:43 AM CDT 04/16/2023 5:49 AM CDT James Beniot MD LAB - CHEMISTRY ORDE DAHLIA Performing Organization Address City/[facility]/ZIP Co de Phone Number [facility] [address] [place] [address] * XR CHEST 1VW PORTABLE (04/15/2023 10:57 AM CDT) Only the most recent of10 resultswithin the time period is included. Anatomical Region Laterality Modality Chest Radiographic Deepthi ging 04/15/2023 11:1 9 AM CDT Impressions 04/15/2023 11:50 AM CDT IMPRESSION: Stable lung infiltration. Edited by Taylor Vidal on 04/15/2023 11:24 AM > Interpreting Provider: Crispin Mcpherson MD on 04/15/2023 11:50 AM Narrative 04/15/2023 11:50 AM CDT XR CHEST 1VW PORTABLE INDICATION: J18.9: Pneumonia, unspecified organism. Shortness of breath. COMPARISON: 04/12/2023. FINDINGS: Lung infiltration bilaterally is present. There is no pleural effusion or pneumothorax. The heart size is stable. Procedure Note Crispin Mcpherson MD - 04/15/2023 XR CHEST 1VW PORTABLE INDICATION: J18.9: Pneumonia, unspecified organism. Shortness of breath. COMPARISON: 04/12/2023. FINDINGS: Lung infiltration bilaterally is present. There is no pleural effusionor pneumothorax. The heart size is stable. IMPRESSION: Stable lung infiltration. Edited by Taylor Vidal on 04/15/2023 11:24 AM > Interpreting Provider: Crispin Mcpherson MD on 04/15/2023 11:50 AM Dilcia Clem Finesse SUPERVISOR TYPE PHOTOGRAPHY-MANAGER [facility] DIAGNOSTIC IM AGING ORDERABLES * (ABNORMAL) CBC W/O DIFFERENTIAL (04/15/2023 8:34 AM CDT) Only the most recent of7 resultswithin the time period is included. WBC 17.5(H) 4.4 - 10.7 x10E9/L 04/15/2023 9:00 AM CDT [facility] RBC 2.72(L) 3.80 - 5.20 x10E12/L 04/15/2023 9:00 AM CDT [facility] Hemoglobin 8.2(L) 12.0 - 15.6 gm/dL 04/15/2023 9:00 AM CDT [facility] Hematocrit 26.8(L) 35.9 - 45.5 % 04/15/2023 9:00 AM CDT [facility] MCV 98.5(H) 80.7 - 98.3 fl 04/15/2023 9:00 AM CDT [facility] MCH 30.1 26.7 - 34.0 pg 04/15/2023 9:00 AM CDT [facility] MCHC 30.6(L) 30.8 - 35.9 gm/dL 04/15/2023 9:00 AM CDT [facility] Platelet Count 1,135(HH) 153 - 416 x10E9/L 04/15/2023 9:00 AM CDT [facility] RDW-CV 14.4 12.1 - 14.9 % 04/15/2023 9:00 AM CDT [facility] MPV 8.7(L) 9.4 - 12.9 fl 04/15/2023 9:00 AM CDT [facility] Blood BLOOD SPECIMEN / Unknown Venipuncture / Unknown 04/15/2023 8:34 AM CDT 04/15/2023 8:37 AM CDT James Benito MD LAB - HEMATOLOGY ORD MANINDER [facility] [address] [place] [address] * (ABNORMAL) BASIC METABOLIC PANEL (CALCIUM TOTAL) (04/14/2023 4:57 AM CDT) Only the most recent of11 resultswithin the time period is included. Pathologist [facility] Glucose 139(H) 70 - 105 mg/dL 04/14/2023 5:31 AM CDT [facility] Sodium 136 136 - 145 mmol/L 04/14/2023 5:31 AM CDT [facility] Potassium 4.5 3.5 - 5.1 mmol/L 04/14/2023 5:31 AM CDT [facility] Chloride 103 98 - 107 mmol/L 04/14/2023 5:31 AM CDT [facility] CO2 26 22 - 29 mmol/L 04/14/2023 5:31 AM CDT [facility] Calcium 8.7 8.4 - 10.4 mg/dL 04/14/2023 5:31 AM CDT [facility] Anion Gap 7 6 - 16 mmol/L 04/14/2023 5:31 AM CDT [facility] BUN 26(H) 5.3 - 18.7 mg/dL 04/14/2023 5:31 AM CDT [facility] Creatinine 0.82 0.57 - 1.11 mg/dL 04/14/2023 5:31 AM CDT [facility] eGFR by CKD-EPI >90 >=90 mL/min/1.7 3 m2 04/14/2023 5:31 AM CDT [facility] Blood BLOOD SPECIMEN / Unknown Venipuncture / Unknown 04/14/2023 4:57 AM CDT 04/14/2023 5:04 AM CDT Karime Beth MD LAB - CHEMISTRY MORRIS VILLAGOMEZ [facility] [address] [place] [phone] * PHOSPHORUS BLOOD (04/14/2023 4:57 AM CDT) Only the most recent of14 resultswithin the time period is included. Phosphorus 3.0 2.3 - 4.7 mg/dL 04/14/2023 5:31 AM CDT [facility] Blood BLOOD SPECIMEN / Unknown Venipuncture / Unknown 04/14/2023 4:57 AM CDT 04/14/2023 5:04 AM CDT Karime Beth MD LAB - CHEMISTRY MORRIS VILLAGOMEZ Performing Organization Address [facility] de Phone Number [facility] [address] [place] [phone] * MAGNESIUM BLOOD (04/14/2023 4:57 AM CDT) Only the most recent of17 resultswithin the time period is included. Magnesium 2.0 1.6 - 2.6 mg/dL 04/14/2023 5:31 AM CDT [facility] Blood BLOOD SPECIMEN / Unknown Venipuncture / Unknown 04/14/2023 4:57 AM CDT 04/14/2023 5:04 AM CDT Karime Beth MD LAB - CHEMISTRY MORRSI VILLAGOMEZ Performing Organization Address [facility] de Phone Number [facility] [address] [place] [phone] * VAS BILATERAL VENOUS DUPLEX LE (04/13/2023 3:09 PM CDT) Anatomical Region Laterality Modality Lower Extremity Ultrasound 04/13/2023 1:56 PM CDT Narrative Procedure Note Quincy Julio MD - 04/14/[address] [address] Lower Extremity Venous Ultrasound Report Pat.Name: FARIBA POON Pat.ID: [id number] .Date: 04/13/2023 Exam Time: 1:56:00 PM Study Type:LE Venous Age: 11 1995,27Y Sex: FEMALE Sonogrphr: Isaac Ovalle RVT Pat. Stat.:Inpatient Room: [facility] Reason for Study: M79.89 Leg swelling History / Clinical: Hypertension, Nephropathy, Seizure disorder Procedures: Lower Extremity Venous - Bilateral Race: [facility] Visit ID: [id number] ++++++++++++++++++++++++++++++++++++ SUMMARY: ++++++++++++++++++++++++++++++++++++ There is no evidence of an acute deep or superficial venous thrombosis in either the right or left lower extremity. ++++++++++++++++++++++++++++++++++++ FINDINGS: ++++++++++++++++++++++++++++++++++++ Procedure: Venous duplex imaging of both lower extremities was performed using color flow and spectral Doppler analysis. Study Quality: This study is of adequate technical quality. Bilateral: All vessels seen appear patent and compressible. There was spontaneous and phasic flow seen in all the proximal major veins of both lower extremities. Appropriate augmentation with distal compression. No evidence of reflux with proximal compression. Signed 04/14/2023 09:53 AM Quincy Julio MD Karime Beth MD VASCULAR LAB ORDERAB LES * ALLERGEN ASPERGILLUS FUMIGATUS IGE (04/12/2023 9:38 AM CDT) Allergen A fumigatus IgE <0.10 <=0.34 kU/L 04/15/2023 6:08 AM CDT [facility] ([facility]) Comment: Performed By: [employer] [address] [place] [address] [employer] [address] Supervisor: Alf Palomino MD, PhD CLIA Number: [id number] Blood BLOOD SPECIMEN / Unknown Venipuncture / Unknown 04/12/2023 9:38 AM CDT 04/12/2023 9:47 AM CDT Dedra Montez MD LAB - SEROLOGY ORDER HERNANDEZ [facility] ([facility]) [address] * IMMUNOSCORE IGE INTERP (04/12/2023 9:38 AM CDT) Immunocap Score See Note 6:19 AM CDT [facility] ([facility]) Comment: REFERENCE INTERVAL: Allergen, Interpretation Less than 0.10 kU/L......Class 0.....No significant level detected 0.10-0.34 kU/L...........Class 0/1...Clinical relevance undetermined 0.35-0.70 kU/L...........Class 1.....Low 0.71-3.50 kU/L...........Class 2.....Moderate 3.51-17.50 kU/L..........Class 3.....High 17.51-50.00 kU/L.........Class 4.....Very High 50.01-100.00 kU/L........Class 5.....Very High Greater than 100.00kU/L..Class 6.....Very High Allergen results of 0.10-0.34 kU/L are intended for specialist use as the clinical relevance is undetermined. Even though increasing ranges are reflective of increasing concentrations of allergen-specific IgE, these concentrations may not correlate with the degree of clinical response or skin testing results when challenged with a specific allergen. The correlation of allergy laboratory results with clinical history and in vivo reactivity to specific allergens is essential. A negative test may not rule out clinical allergy or even anaphylaxis. Performed By: [facility] [address] [place] [address] Mirror Department Supervisor: Alf Palomino MD, PhD CLIA Number: [id number] Blood BLOOD SPECIMEN / Unknown Venipuncture / Unknown 04/12/2023 9:38 AM CDT 04/12/2023 9:47 AM CDT Dedra Montez MD LAB - SEROLOGY ORDER HERNANDEZ [facility] ([facility]) [address] * CYCLIC CITRUL PEPTIDE ANTIBODY IGG/IGA (CCP) (04/12/2023 9:38 AM CDT) CCP Antibodies IgG/IgA 5 0 - 19 units 04/14/2023 1:09 PM CDT [facility] ([facility]) Comment: Negative <20 Weak positive 20 - 39 Moderate positive 40 - 59 Strong positive >59 Blood BLOOD SPECIMEN / Unknown Venipuncture / Unknown 04/12/2023 9:38 AM CDT 04/12/2023 9:47 AM CDT Narrative [facility] ([facility]) - 04/14/2023 1:09 PM CDT Performed at: [address] [place] [id number] Autobody Technician: Edgar Patel PhD, Phone: [phone] Dedra Montez MD LAB - SEROLOGY ORDER HERNANDEZ Performing Organization Address City/[facility]/ZIP Co de Phone Number [facility] ([facility]) [address] [place] [address] * ANCA VASCULITIS PANEL (04/12/2023 9:38 AM CDT) Only the most recent of2 resultswithin the time period is included. Myeloperoxidase Antibody <0.2 0.0 - 0.9 units 04/15/2023 8:08 PM CDT [facility] ([facility]) Proteinase 3 Antibody <0.2 0.0 - 0.9 units 04/15/2023 8:08 PM CDT [facility] ([facility]) Cytoplasmic (C-ANCA) <1:20 Neg:<1:20 titer 04/15/2023 8:08 PM CDT [facility] ([facility]) p-ANCA Titer <1:20 Neg:<1:20 titer 04/15/2023 8:08 PM CDT [facility] ([facility]) Comment: The presence of positive fluorescence exhibiting P-ANCA or C-ANCA patterns alone is not specific for the diagnosis of Stefan's Granulomatosis (WG) or microscopic polyangiitis. Decisions about treatment should not be based solely on ANCA IFA results. The International ANCA [employer] Consensus recommends follow up testing of positive sera with both ID-3 and MPO-ANCA enzyme immunoassays. As many as 5% serum samples are positive only by EIA. Ref. AM J Clin Pathol 1999;111:507-513. Atypical p-ANCA Titer <1:20 Neg:<1:20 titer 04/15/2023 8:08 PM CDT [facility] ([facility]) Comment: The atypical pANCA pattern has been observed in a significant percentage of patients with ulcerative colitis, primary sclerosing cholangitis and autoimmune hepatitis. Blood BLOOD SPECIMEN / Unknown Venipuncture / Unknown 04/12/2023 9:38 AM CDT 04/12/2023 9:47 AM CDT [facility] - 04/15/2023 8:08 PM CDT Performed at: [address] [id number] Autobody Technician: Diana Armenta MD, Phone: [phone] Performed at: [address] [id number] Autobody Technician: Edgar Patel PhD, Phone: [phone] Dedra Montez MD LAB - CHEMISTRY MORRIS VILLAGOMEZ [facility] ([facility]) [address] [place] [address] * RHEUMATOID FACTOR BLOOD QUANTITATIVE (04/12/2023 9:38 AM CDT) [facility] Rheumatoid Factor Quantitative <13 <30 IU/mL 04/12/2023 10:13 AM CDT [facility] Blood BLOOD SPECIMEN / Unknown Venipuncture / Unknown 04/12/2023 9:38 AM CDT 04/12/2023 9:47 AM CDT Dedra Montez MD LAB - CHEMISTRY MORRIS VILLAGOMEZ Performing Organization Address City/[facility]/ZIP Co de Phone Number [facility] [address] [place] [address] * MICHELLE BLOOD SCREEN W/REFLEX TITER (04/12/2023 9:38 AM CDT) Only the most recent of2 resultswithin the time period is included. Pathologist [facility] MICHELLE Negative Negative 04/13/2023 1:04 PM CDT [facility] Blood BLOOD SPECIMEN / Unknown Venipuncture / Unknown 04/12/2023 9:38 AM CDT 04/12/2023 9:47 AM CDT Narrative [facility] - 04/13/2023 1:04 PM CDT Methodology: Indirect Immunofluorescence Assay (IFA) utilizing Hep-2-Gamma cells. Dedra Montez MD LAB - CHEMISTRY MORRIS VILLAGOMEZ Performing Organization Address City/[facility]/ZIP Co de Phone Number [facility] [address] [place] [address] * (ABNORMAL) ASPERGILLUS FUMIGATUS ANTIBODY IGG (04/12/2023 9:38 AM CDT) Pathologist [facility] Aspergillus fumigatus Antibody IgG 44.3(H) 0.0 - 1.9 ug/mL 04/16/2023 10:07 PM CDT [facility] ([facility]) Blood BLOOD SPECIMEN / Unknown Venipuncture / Unknown 04/12/2023 9:38 AM CDT 04/12/2023 9:47 AM CDT Narrative [facility] ([facility]) - 04/16/2023 10:07 PM CDT Test(s) [id number] Aspergillus fumigatus Results for this test are for Investigational Purposes Only by the assay's buffing wheel inspector. The performance characteristics of this product have not been established. Results should not be used as a diagnostic procedure without confirmation of the diagnosis by another medically established diagnostic product or procedure. Performed at: 01 - [facility] [address] [id number] Autobody Technician: Diana Armenta MD, Phone: [phone] Dedra Montez MD LAB - SEROLOGY ORDER HERNANDEZ [facility] ([facility]) [address] [place] [address] * IGE BLOOD (04/12/2023 9:38 AM CDT) Pathologist [facility] IgE Total 16 <=214 kU/L 04/15/2023 6:07 AM CDT [facility] ([facility]) Comment: REFERENCE INTERVAL: Immunoglobulin E, Serum Access complete set of age- and/or gender-specific reference intervals for this test in the [facility] Test Directory ([employer]). Performed By: [employer] [address] [place] [address] Mirror Department Supervisor: Alf Palomino MD, PhD CLIA Number: [id number] Blood BLOOD SPECIMEN / Unknown Venipuncture / Unknown 04/12/2023 9:38 AM CDT 04/12/2023 9:46 AM CDT Dedra Montez MD LAB - CHEMISTRY ORDE RABRADHA Performing Organization Address City/[facility]/ZIP Co de Phone Number [facility] ([facility]) [address] [place] [address], [facility] * EKG 12-LEAD (04/12/2023 6:19 AM CDT) Only the most recent of3 resultswithin the time period is included. 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 PMO ECG ORDERABLE S [facility] * SS-A (SJOGREN'S) ANTIBODY (04/11/2023 12:37 PM CDT) Sjogren's Antibodies (SSA) <0.2 0.0 - 0.9 AI 04/13/2023 12:09 PM CDT [facility] ([facility]) Blood BLOOD SPECIMEN / Unknown Venipuncture / Unknown 04/11/2023 12:37 PM CDT 04/11/2023 12:42 PM CDT Narrative [facility] ([facility]) - 04/13/2023 12:09 PM CDT Performed at: [address] [id number] Autobody Technician: Edgar Patel PhD, Phone: [phone] Dedra Montez MD LAB - CHEMISTRY MORRIS VILLAGOMEZ Performing Organization Address City/[facility]/ZIP Co de Phone Number [facility] ([facility]) [address] [place] [address] * SCLERODERMA 70 (SCL) ANTIBODY (04/11/2023 12:37 PM CDT) Antiscleroderma -70 Antibody 0.5 0.0 - 0.9 AI 04/13/2023 12:09 PM CDT [facility] ([facility]) Blood BLOOD SPECIMEN / Unknown Venipuncture / Unknown 04/11/2023 12:37 PM CDT 04/11/2023 12:42 PM CDT Narrative [facility] ([facility]) - 04/13/2023 12:09 PM CDT Performed at: [address] [id number] Autobody Technician: Edgar Patel PhD, Phone: [phone] Dedra Montez MD LAB - CHEMISTRY MORRIS VILLAGOMEZ Performing Organization Address City/[facility]/ZIP Co de Phone Number [facility] ([facility]) [address] [place] [address] * (ABNORMAL) C-REACTIVE PROTEIN (04/11/2023 4:56 AM CDT) Only the most recent of3 resultswithin the time period is included. C-Reactive Protein 2.08(H) <=0.50 mg/dL 04/11/2023 5:41 AM CDT [facility] Blood BLOOD SPECIMEN / Unknown Venipuncture / Unknown 04/11/2023 4:56 AM CDT 04/11/2023 5:11 AM CDT Karime Beth MD LAB - CHEMISTRY MORRIS VILLAGOMEZ Performing Organization Address [facility] Co de Phone Number [facility] [address] [place], [place] [id number] * (ABNORMAL) ERYTHROCYTE SEDIMENTATION RATE (04/11/2023 4:56 AM CDT) Only the most recent of2 resultswithin the time period is included. Pathologist [facility] Erythrocyte Sedimentation Rate Automated 43(H) 0 - 20 MM/HR 04/11/2023 5:55 AM CDT [facility] Blood BLOOD SPECIMEN / Unknown Venipuncture / Unknown 04/11/2023 4:56 AM CDT 04/11/2023 5:11 AM CDT Clint Moss DO LAB - HEMATOLOGY ORD ERABLES Performing Organization Address City/[facility]/ZIP Co de Phone Number [facility] [address] [place], [place] [id number] * VAS RIGHT VENOUS DUPLEX UE (04/10/2023 1:51 PM CDT) Anatomical Region Laterality Modality Upper Extremity Ultrasound 04/10/2023 2:21 PM CDT Narrative Procedure Note Quincy Julio MD - 04/13/2023 [facility] [address] [place] [address] Upper Extremity Venous Ultrasound Report Pat.Name: FARIBA POON.ID: [id number] St.Date: 04/10/2023 Exam Time: 2:21:00 PM Study Type:UE Venous Age: 11 1995,27Y Sex: FEMALE Sonogrphr: BATOOL Camacho. Stat.:Inpatient Room: 416 Bed 01 Reason for Study: Swelling -Arm/hand, right History / Clinical: Hypertension, Nephropathy, Seizure disorder Procedures: Upper Extremity Venous - Right Race: 1 Visit ID: [id number] ++++++++++++++++++++++++++++++++++++ SUMMARY: ++++++++++++++++++++++++++++++++++++ Acute superficial thrombophlebitis right upper extremity involving the cephalic and basilic veins. No evidence of DVT right upper extremity. ++++++++++++++++++++++++++++++++++++ FINDINGS: ++++++++++++++++++++++++++++++++++++ Procedure: Venous duplex imaging of the right upper extremity, up to and including the internal jugular vein, was performed using color flow and spectral Doppler analysis. The contralateral subclavian vein was also examined. Study Quality: This study is of adequate technical quality. Rt Arm: There is acute, occlusive thrombus in the cephalic vein at the proximal upper arm. There is acute, occlusive thrombus in the basilic vein at the mid forearm. Comments: Technologist findings were called to MADDIE Hooper at 13:50 pm. No acute DVT seen. Signed 04/13/2023 07:21 AM Quincy Julio MD Karime Beth MD VASCULAR LAB ORDERAB LES * CT CHEST WO CONTRAST (04/10/2023 11:01 AM CDT) Anatomical Region Laterality Modality Chest Computed Tomogra phy 04/10/2023 1:09 PM CDT Impressions 04/10/2023 1:54 PM CDT IMPRESSION: PERSISTENT SEVERE BILATERAL MIXED DENSITY PULMONARY INFILTRATES DESCRIBED. SEVERITY IS GREATER ON THE LEFT. CONSOLIDATION HAS MILDLY IMPROVED IN THE LEFT HOWEVER HAS INCREASED IN THE RIGHT MID AND LOWER LUNG ZONES. DIFFERENTIAL CONSIDERATIONS; BILATERAL PNEUMONIA, ARDS, ACUTE LUNG INJURY, DRUG REACTION, OR HEMORRHAGE. MILDLY IMPROVED SMALL LAYERING BILATERAL PLEURAL EFFUSIONS. CT DENSITY HEART SUGGESTS UNDERLYING ANEMIA. ANASARCA. Edited by Rosemary Snow on 04/10/2023 1:15 PM > Interpreting Provider: Josef Branch MD on 04/10/2023 1:54 PM Narrative 04/10/2023 1:54 PM CDT PROCEDURE: CT CHEST WO CONTRAST DATE/TIME OF EXAM: 04/10/2023 11:02 AM CLINICAL INDICATION: R09.02: Hypoxemia Chronic dyspnea. Acute respiratory failure. COMPARISON: CT thorax 04/02/2023. TECHNIQUE: CT of the chest was performed without intravenous contrast utilizing standard protocol. CT dose reduction technique was used, including Automated Exposure Control. FINDINGS: Redemonstration of severe bilateral mixed density pulmonary infiltrates demonstrating patchy consolidation, interstitial thickening, and intervening groundglass attenuation. The degree of parenchymal consolidation within the left lung has improved in the interval. Patchy parenchymal consolidation in the right mid and lower lung zone has mildly increased in the interval. Infiltrate severity is greater on the left. Small layering bilateral pleural effusions which have mildly decreased in size in the interval. No pneumothorax. Heart size normal. Decreased attenuation of the cardiac blood pool consistent with underlying anemia. No pericardial effusion. No pathologically enlarged lymph nodes. Generalized body wall edema compatible with anasarca. No acute bony abnormality. Procedure Note Josef Branch MD - 04/10/2023 PROCEDURE: CT CHEST WO CONTRAST DATE/TIME OF EXAM: 04/10/2023 11:02 AM CLINICAL INDICATION: R09.02: Hypoxemia Chronic dyspnea. Acute respiratory failure. COMPARISON: CT thorax 04/02/2023. TECHNIQUE: CT of the chest was performed without intravenous contrast utilizing standard protocol. CT dose reduction technique was used, including Automated ExposureControl. FINDINGS: Redemonstration of severe bilateral mixed density pulmonary infiltrates demonstrating patchy consolidation, interstitial thickening, and intervening groundglass attenuation. The degree of parenchymal consolidation within the left lung has improved in the interval. Patchy parenchymal consolidation in the right mid and lower lung zone hasmildly increased in the interval. Infiltrate severity is greater on the left. Small layering bilateral pleural effusions which have mildly decreasedin size in the interval. No pneumothorax. Heart size normal. Decreased attenuation of the cardiac blood pool consistent with underlying anemia. No pericardial effusion. No pathologically enlarged lymph nodes. Generalized body wall edema compatible with anasarca. No acute bony abnormality. IMPRESSION: PERSISTENT SEVERE BILATERAL MIXED DENSITY PULMONARY INFILTRATES DESCRIBED. SEVERITY IS GREATER ON THE LEFT. CONSOLIDATION HAS MILDLY IMPROVED IN THE LEFT HOWEVER HAS INCREASED IN THE RIGHT MID AND LOWERLUNG ZONES. DIFFERENTIAL CONSIDERATIONS; BILATERAL PNEUMONIA, ARDS, ACUTELUNG INJURY, DRUG REACTION, OR HEMORRHAGE. MILDLY IMPROVED SMALL LAYERING BILATERAL PLEURAL EFFUSIONS. CT DENSITY HEART SUGGESTS UNDERLYING ANEMIA. ANASARCA. Edited by Rosemary Snow on 04/10/2023 1:15 PM > Interpreting Provider: Josef Branch MD on 04/10/2023 1:54 PM [address] Moss DO CT ORDERABLES * (ABNORMAL) BLOOD GASES+LYTES ARTERIAL (04/10/2023 9:38 AM CDT) Only the most recent of3 resultswithin the time period is included. pH Arterial 7.50(H) 7.35 - 7.45 pH 04/10/2023 9:52 AM CDT [facility] pO2 Arterial 58(L) 80 - 100 mmHg 04/10/2023 9:52 AM CDT [facility] pCO2 Arterial 44 35 - 45 mmHg 04/10/2023 9:52 AM CDT [facility] HCO3 Arterial 34.3(H) 22.0 - 26.0 mmol/L 04/10/2023 9:52 AM CDT [facility] BE Arterial 9.9(H) -2.0 - 2.0 mmol/L 04/10/2023 9:52 AM CDT [facility] O2 Saturation Arterial 92 90 - 100 % 04/10/2023 9:52 AM CDT [facility] Sodium Whole Blood 134(L) 135 - 145 mmol/L 04/10/2023 9:52 AM CDT [facility] Potassium Whole Blood 4.4 3.5 - 5.5 mmol/L 04/10/2023 9:52 AM CDT [facility] Chloride WB 99(L) 101 - 111 mmol/L 04/10/2023 9:52 AM CDT [facility] Calcium Ionized 1.24 mmol/L 9:52 AM CDT [facility] Ionized Calcium pH Adjusted 1.29 1.19 - 1.34 mmol/L 04/10/2023 9:52 AM CDT [facility] Laith's Test Yes 04/10/2023 9:52 AM CDT [facility] Sample Site Left RA 04/10/2023 9:52 AM CDT [facility] O2 Device Face Mask 04/10/2023 9:52 AM CDT [facility] Liter Flow (LPM) 4 04/10/2023 9:52 AM CDT [facility] Anion Gap (AG) Arterial 5(L) 8 - 18 mmol/L 04/10/2023 9:52 AM CDT [facility] Blood, arterial ARTERIAL BLOOD SPECIMEN / Unknown 04/10/2023 9:38 AM CDT 04/10/2023 9:38 AM CDT Clint Moss DO LAB - BLOOD GASES OR DERABLES Performing Organization Address City/State/[facility] Co de Phone Number [facility] [address] [phone] * CT HEAD WO CONTRAST (04/07/2023 2:00 AM CDT) Anatomical Region Laterality Modality Head Computed Tomogra phy 04/07/2023 7:06 AM CDT Impressions 04/07/2023 7:08 AM CDT Impression: No intracranial hemorrhage or edema No acute intracranial process. > Interpreting Provider: Armand Jones MD on 04/07/2023 7:08 AM Narrative 04/07/2023 7:08 AM CDT PROCEDURE: CT HEAD WO CONTRAST, DATE/TIME OF EXAM: 04/07/2023 2:08 AM, LOCATION [facility] INDICATION: R29.898: Other symptoms and signs involving the musculoskeletal system ADDITIONAL CLINICAL INFORMATION: Ordering Provider Reason For Exam: right arm weakness Technologist Note: Additional: 27-year-old, right arm weakness for long time, diabetes COMPARISON: None. Technique: Axial images of the brain were obtained without contrast and reconstructions performed. Findings: The ventricles are normal in size and configuration. The fourth ventricle is midline. The brainstem and suprasellar cisterns are normal. No intra-or extra-axial hemorrhage, mass displacement, or edema. The haji-white matter differentiation is normal. No loss of the insular cortical ribbon. No brainstem volume loss. The medial temporal lobes are symmetric The imaged paranasal sinuses and mastoid air cells are clear. The imaged globes and post-septal soft tissues are normal.. The craniocervical junction is normal. The sella turcica region is also normal. The corpus callosal volume, normal. . MRI is more sensitive in assessment process for demyelinating disease or other white matter pathology Procedure Note Armand Jones MD - 04/07/2023 PROCEDURE: CT HEAD WO CONTRAST, DATE/TIME OF EXAM: 04/07/2023 2:08 AM, LOCATION [facility] INDICATION: R29.898: Other symptoms and signs involving the musculoskeletal system ADDITIONAL CLINICAL INFORMATION: Ordering Provider Reason For Exam: right arm weakness Technologist Note: Additional: 27-year-old, right arm weakness for long time, diabetes COMPARISON: None. Technique: Axial images of the brain were obtained without contrast and reconstructions performed. Findings: The ventricles are normal in size and configuration. Thefourth ventricle is midline. The brainstem and suprasellar cisterns are normal.No intra-or extra-axial hemorrhage, mass displacement, or edema. The haji-white matter differentiation is normal. No loss of the insular cortical ribbon. No brainstem volume loss. The medial temporal lobes are symmetric The imaged paranasal sinuses and mastoid air cells are clear. Theimaged globes and post-septal soft tissues are normal.. The craniocervical junction is normal. The sella turcica region is also normal. The corpus callosal volume, normal. . MRI is more sensitive in assessment process for demyelinating disease or other white matter pathology Impression: No intracranial hemorrhage or edema No acute intracranial process. > Interpreting Provider: Armand Jones MD on 04/07/2023 7:08 AM Zachery Lawrence MD CT ORDERA BLES * MRI CERVICAL SPINE WO CONTRAST (04/06/2023 7:14 PM CDT) Anatomical Region Laterality Modality Pelvis Magnetic Resonan ce 04/07/2023 7:07 AM CDT Impressions 04/07/2023 11:40 AM CDT IMPRESSION: Congenitally narrow bony spinal canal caliber. . No cord compression. No intrinsic cord abnormality. Edited by Brittanie Goodrich on 04/07/2023 9:48 AM > Interpreting Provider: Armand Jones MD on 04/07/2023 11:40 AM Narrative 04/07/2023 11:40 AM CDT MRI CERVICAL SPINE WITHOUT CONTRAST INDICATION: Ataxia, right arm weakness. TECHNIQUE: Multisequence, multiplanar MRI sequences of the cervical spine without contrast. FINDINGS: The patient has congenitally narrow bony spinal canal caliber. There is no intrinsic cord signal abnormality. No diffuse marrow replacing process. No prevertebral soft tissue swelling. The craniocervical alignment is normal. No generalized marrow replacement. Normal flow void is present within the vertebral arteries. There is no central or foraminal stenosis at any segment. Procedure Note Armand Jones MD - 04/07/2023 MRI CERVICAL SPINE WITHOUT CONTRAST INDICATION: Ataxia, right arm weakness. TECHNIQUE: Multisequence, multiplanar MRI sequences of the cervicalspine without contrast. FINDINGS: The patient has congenitally narrow bony spinal canal caliber. There isno intrinsic cord signal abnormality. No diffuse marrow replacing process.No prevertebral soft tissue swelling. The craniocervical alignment isnormal. No generalized marrow replacement. Normal flow void is present within the vertebral arteries. There is no central or foraminal stenosis at any segment. IMPRESSION: Congenitally narrow bony spinal canal caliber. . No cord compression. No intrinsic cord abnormality. Edited by Brittanie Goodirch on 04/07/2023 9:48 AM > Interpreting Provider: Armand Jones MD on 04/07/2023 11:40 AM Yumiko Ramsey Uriel SUPERVISOR TYPE PHOTOGRAPHY-MANAGER PMO MR ORDERABLES * XR SHOULDER RIGHT 2VW OR MORE (04/06/2023 10:19 AM CDT) Anatomical Region Laterality Modality Upper Extremity Radiographic Deepthi ging 04/06/2023 10:3 0 AM CDT Impressions 04/06/2023 10:31 AM CDT IMPRESSION: Unremarkable examination of the right shoulder. > Interpreting Provider: Beto Perez MD on 04/06/2023 10:31 AM Narrative 04/06/2023 10:31 AM CDT PROCEDURE: XR SHOULDER RIGHT 2VW OR MORE DATE/TIME OF EXAM: 04/06/2023 10:21 AM CLINICAL INFORMATION: None relevant/not provided if blank. Indication: R29.898: Other symptoms and signs involving the musculoskeletal system Additional History: HISTORY: Right upper extremity weakness. COMPARISON: None. FINDINGS: 3 views of the right shoulder were performed. There is no fracture identified. There is no dislocation. Procedure Note Beto Perez MD - 04/06/2023 PROCEDURE: XR SHOULDER RIGHT 2VW OR MORE DATE/TIME OF EXAM: 04/06/2023 10:21 AM CLINICAL INFORMATION: None relevant/not provided if blank. Indication: R29.898: Other symptoms and signs involving themusculoskeletal system Additional History: HISTORY: Right upper extremity weakness. COMPARISON: None. FINDINGS: 3 views of the right shoulder were performed. There is no fracture identified. There is no dislocation. IMPRESSION: Unremarkable examination of the right shoulder. > Interpreting Provider: Beto Perez MD on 04/06/2023 10:31 AM Zachery Lawrence MD DIAGNOSTI C IMAGING ORDERABLES * VANCOMYCIN LEVEL RANDOM (04/06/2023 2:33 AM CDT) Only the most recent of2 resultswithin the time period is included. Vancomycin Random 19.1 <=40.0 ug/mL 04/06/2023 2:57 AM CDT [facility] Blood BLOOD SPECIMEN / Unknown Venipuncture / Unknown 04/06/2023 2:33 AM CDT 04/06/2023 2:39 AM CDT Narrative [facility] - 04/06/2023 2:57 AM CDT No reference range available for random Vancomycin levels. All results interpreted by ordering physician. Zachery Lawrence MD LAB - CHRISTY INA ORDERABLES Performing Organization Address [facility] Co de Phone Number [facility] [address] [place] [phone] * (ABNORMAL) VANCOMYCIN LEVEL TROUGH (04/05/2023 6:09 PM CDT) Only the most recent of3 resultswithin the time period is included. Pathologist [facility] Vancomycin Trough 28.6(HH) 10.0 - 20.0 ug/mL 04/05/2023 6:34 PM CDT [facility] Blood BLOOD SPECIMEN / Unknown Venipuncture / Unknown 04/05/2023 6:09 PM CDT 04/05/2023 6:16 PM CDT Zachery Lawrence MD LAB - CHRISTY INA ORDERABLES Performing Organization Address [facility] Co de Phone Number [facility] [address] [place] [phone] * (ABNORMAL) TRIGLYCERIDES BLOOD (04/05/2023 5:07 AM CDT) Pathologist [facility] Triglycerides 228(H) <150 mg/dL 04/05/2023 5:20 AM CDT [facility] Blood BLOOD SPECIMEN / Unknown Venipuncture / Unknown 04/05/2023 5:07 AM CDT 04/05/2023 5:09 AM CDT Zachery Lawrence MD LAB - CHRISTY INA ORDERABLES Performing Organization Address [facility] Co de Phone Number [facility] [address] [place] [phone] * B-TYPE NATRIURETIC PEPTIDE (04/05/2023 3:50 AM CDT) Pathologist [facility] BNP 90 <=100 pg/mL 04/05/2023 5:43 AM CDT [facility] Blood BLOOD SPECIMEN / Unknown Venipuncture / Unknown 04/05/2023 3:50 AM CDT 04/05/2023 3:53 AM CDT Juan Ramoncole Letty Kulkarni DO LAB - CHEMISTR Y ORDERABLES [facility] [address] [place] [address] * (ABNORMAL) BLOOD GASES ARTERIAL (04/04/2023 12:20 PM CDT) Only the most recent of3 resultswithin the time period is included. pH Arterial 7.49(H) 7.35 - 7.45 pH 04/04/2023 12:27 PM CDT [facility] pO2 Arterial 132(H) 80 - 100 mmHg 04/04/2023 12:27 PM CDT [facility] pCO2 Arterial 40 35 - 45 mmHg 04/04/2023 12:27 PM CDT [facility] HCO3 Arterial 30.5(H) 22.0 - 26.0 mmol/L 04/04/2023 12:27 PM CDT [facility] BE Arterial 6.6(H) -2.0 - 2.0 mmol/L 04/04/2023 12:27 PM CDT [facility] O2 Saturation Arterial 99 90 - 100 % 04/04/2023 12:27 PM CDT [facility] Laith's Test NA 04/04/2023 12:27 PM CDT [facility] Sample Site Art Line 04/04/2023 12:27 PM CDT [facility] Mode APVcmv 04/04/2023 12:27 PM CDT [facility] O2 Device VENT 04/04/2023 12:27 PM CDT [facility] FI O2 40.0 % 04/04/2023 12:27 PM CDT [facility] Mechanical Tidal Volume (mL) 380 04/04/2023 12:27 PM CDT [facility] Mechanical Respiratory Rate (bpm) 16 04/04/2023 12:27 PM CDT [facility] PEEP (cmH2O) 8 04/04/2023 12:27 PM CDT [facility] Blood, arterial ARTERIAL BLOOD SPECIMEN / Unknown 04/04/2023 12:20 PM CDT 04/04/2023 12:20 PM CDT Zachery Lawrence MD LAB - BLO OD GASES ORDERABLES Performing Organization Address City/[facility]/ZIP Co de Phone Number [facility] TH[facility] [address] [place], [place] [address] [phone] * (ABNORMAL) CULTURE FUNGUS OTHER+FUNGUS SMEAR (04/03/2023 7:53 PM CDT) Culture Rare Pratibha albicans(A) DORIAN 04/27/2023 7:59 AM CDT [facility] Fungus Stain No yeast or hyphae seen 04/27/2023 7:59 AM CDT [facility] Fungus Stain No Pneumocystis jirovecii 04/27/2023 7:59 AM CDT [facility] Microbiology BRONCHIOLOALVEOLAR LAVAGE / Unknown Collection / Unknown 04/03/2023 7:53 PM CDT 04/03/2023 8:00 PM CDT Zachery Lawrence MD LAB - DORIAN ROBIOLOGY ORDERABLES Performing Organization Address [facility] Co de Phone Number [facility] [address] [phone] * CULTURE BRONCHOALVEOLAR LAVAGE QNT+GRAM STAIN (04/03/2023 7:53 PM CDT) Culture No growth DORIAN 04/05/2023 12:49 PM CDT [facility] Gram Stain Rare Polymorphonuclear cells 04/05/2023 12:49 PM CDT [facility] Gram Stain No organisms seen 023 12:49 PM CDT [facility] Microbiology BRONCHIOLOALVEOLAR LAVAGE / Unknown Collection / Unknown 04/03/2023 7:53 PM CDT 04/03/2023 10:20 PM CDT Regan Kulkarni DO LAB - MICROBIO LOGY ORDERABLES Performing Organization Address City/[facility]/ZIP Co de Phone Number [facility] [address] [place] [address], [facility] [phone] * CULTURE AFB+SMEAR (04/03/2023 7:53 PM CDT) Culture No acid-fast bacillus isolated 05/18/2023 10:55 AM MAIL DISTRIBUTION CLERK [facility] AFB Smear No acid-fast bacilli seen 05/18/2023 10:55 AM MAIL DISTRIBUTION CLERK [facility] Microbiology BRONCHIOLOALVEOLAR LAVAGE / Unknown Collection / Unknown 04/03/2023 7:53 PM CDT 04/03/2023 10:29 PM CDT Zachery Lawrence MD LAB - DORIAN ROBIOLOGY ORDERABLES Performing Organization Address City/[facility]/ZIP Co de Phone Number [facility] [address] [place] [address], [facility] [phone] * (ABNORMAL) CULTURE ANAEROBE (04/03/2023 7:53 PM CDT) Culture Rare Veillonella species(A) DORIAN 04/09/2023 12:06 PM CDT [facility] Microbiology BRONCHIOLOALVEOLAR LAVAGE / Unknown Collection / Unknown 04/03/2023 7:53 PM CDT 04/03/2023 8:00 PM CDT Zachery Lawrence MD LAB - DORIAN ROBIOLOGY ORDERABLES [facility] [address] [place] [address], [facility] [phone] * CULTURE BRONCHIAL WASHING+GRAM STAIN (04/03/2023 7:53 PM CDT) Culture No growth DORIAN 04/05/2023 12:49 PM CDT [facility] Gram Stain Rare Polymorphonuclear cells 04/05/2023 12:49 PM CDT [facility] Gram Stain No organisms seen 023 12:49 PM CDT [facility] Microbiology (Lung, Left Lower Lobe) Collection / Unknown 04/03/2023 7:53 PM CDT 04/03/2023 8:00 PM CDT Zachery Lawrence MD LAB - DORIAN ROBIOLOGY ORDERABLES [facility] [address] [place], [place] [address], [facility] [phone] * XR ABDOMEN KUB (04/03/2023 5:48 PM CDT) Anatomical Region Laterality Modality Abdomen Radiographic Deepthi ging 04/03/2023 5:51 PM CDT Narrative 04/03/2023 5:53 PM CDT PROCEDURE(s): XR ABDOMEN KUB DATE AND TIME OF EXAM(s): 04/03/2023 5:48 PM INDICATION(s): R06.02: Shortness of breath COMPARISON(s): None available. FINDINGS: A gastric tube terminates within the stomach. A large amount of bowel gas is seen. > Interpreting Provider: Andrade Cox MD on 04/03/2023 5:53 PM Procedure Note Andrade Cox MD - 04/03/2023 PROCEDURE(s): XR ABDOMEN KUB DATE AND TIME OF EXAM(s): 04/03/2023 5:48 PM INDICATION(s): R06.02: Shortness of breath COMPARISON(s): None available. FINDINGS: A gastric tube terminates within the stomach. A large amount of bowel gas is seen. > Interpreting Provider: Andrade Cox MD on 04/03/2023 5:53 PM Zachery Lawrence MD DIAGNOSTI C IMAGING ORDERABLES * XR CHEST POST ETT (04/03/2023 5:12 PM CDT) Anatomical Region Laterality Modality Chest Radiographic Deepthi ging 04/03/2023 5:18 PM CDT Narrative 04/03/2023 5:19 PM CDT PROCEDURE(s): XR CHEST 1VW PORTABLE DATE AND TIME OF EXAM(s): 04/03/2023 5:12 PM INDICATION(s): R09.02: Hypoxemia COMPARISON(s): Chest radiograph dated 04/03/2023 at 6:02 AM. FINDINGS: An endotracheal tube terminates between the clavicles and chase. A left subclavian approach and venous catheter and stress tip terminating the right atrium. A gastric tube terminates beyond the [id number], well below the diaphragm. Cardiomediastinal silhouette is grossly unremarkable. There is diffuse pulmonary infiltrate, similar to that seen on the prior study from the same day. No pneumothorax or pleural effusion is seen. No acute osseous abnormalities are seen. > Interpreting Provider: Andrade Cox MD on 04/03/2023 5:19 PM Procedure Note Andrade Cox MD - 04/06/2023 PROCEDURE(s): XR CHEST 1VW PORTABLE DATE AND TIME OF EXAM(s): 04/03/2023 5:12 PM INDICATION(s): R09.02: Hypoxemia COMPARISON(s): Chest radiograph dated 04/03/2023 at 6:02 AM. FINDINGS: An endotracheal tube terminates between the clavicles andcarina. A left subclavian approach and venous catheter and stress tipterminating the right atrium. A gastric tube terminates beyond the [id number],well below the diaphragm. Cardiomediastinal silhouette is grosslyunremarkable. There is diffuse pulmonary infiltrate, similar to that seen on the prior study from the same day. No pneumothorax or pleural effusion is seen. No acute osseous abnormalities are seen. > Interpreting Provider: Andrade Cox MD on 04/03/2023 5:19 PM Zachery Lawrence MD DIAGNOSTI C IMAGING ORDERABLES * ECHO LIMITED OR FOLLOWUP (04/03/2023 2:19 PM CDT) BSA 1.5213527 m2 [facility] CV FUJ I PACS LV A4C EF 82 46 - 78 % [facility] FUJ I PACS LV stroke vol index A4C MOD 61.053 ml/m2 [facility] FUJI PACS LV ESV A2C 13.769 10 - 54 mL [facility] CV F UJI PACS LV ESV index A2C 9.44 6 - 30 mL/m2 [facility] CV FUJI PACS LV EDV A4C 74.822 mL [facility] CV FU JI PACS LV EDV index A4C 51.31 30 - 82 mL/m2 [facility] CV FUJI PACS LV Kimbrough A4C 7.511 cm [facility] CV F UJI PACS RA area 10.15 cm2 [facility] CV FUJ I PACS LA ESV A4C MOD Index 20 ml/m2 [facility] CV FUJI PACS [id number] 5.34 cm [facility] CV FUJ I PACS LA Size 2.506 cm [facility] CV FUJ I PACS Anatomical Region Laterality Modality Ultrasound Narrative 04/03/2023 5:33 PM CDT Left Ventricle: Normal systolic function with a visually estimated EF of 55 - 60%. Right Atrium: Right atrium is dilated. Right Ventricle: Right ventricle is dilated. Left Ventricle Normal systolic function with a visually estimated EF of 55 - 60%. Right Ventricle Right ventricle is dilated. Left Atrium Left atrium size is normal. Right Atrium Right atrium is dilated. Mitral Valve No restricted motion. Tricuspid Valve No restricted motion. Aortic Valve Valve structure is trileaflet. No restricted motion. Pulmonic Valve No restricted motion. Ascending Aorta Normal sized ascending aorta. Pericardium No pericardial effusion. Study Details A limited 2D and M-mode echocardiogram was performed. The apical, parasternal, subcostal and suprasternal views were obtained. Zachery Lawrence MD ECHO CUPI D * (ABNORMAL) PROCALCITONIN LEVEL (04/03/2023 8:00 AM CDT) Only the most recent of2 resultswithin the time period is included. Procalcitonin 3.45(H) <0.10 ng/mL 04/03/2023 8:48 AM CDT [facility] Blood BLOOD SPECIMEN / Unknown Venipuncture / Unknown 04/03/2023 8:00 AM CDT 04/03/2023 8:12 AM CDT Narrative [facility] - 04/03/2023 8:48 AM CDT The change in procalcitonin (PCT) concentration over time provides support in decision making on antibiotic discontinuation for suspected or confirmed septic patients. Follow-up samples should be tested once every 1-2 days based upon physician discretion taking into account the patient s evolution and progress. Consider discontinuation of antibiotic therapy if the PCT current is <= 0.5 ng/mL or if the delta PCT is > 80%. Duration of antibiotics should not be determined solely on PCT; established guidelines for the indication should be followed. PCT peak: Highest observed PCT concentration PCT current: Most recent PCT concentration Calculate delta PCT using the following equation: Delta PCT = PCT Peak PCT current X 100% PCT Peak The Change in Procalcitonin Calculator is available at [email or web address] If clinical picture has not improved and PCT remains high, reevaluate and consider treatment failure or other causes. Zachery Lawrence MD LAB - [facility] ORDERABLES [facility] [address] [place] [address] * (ABNORMAL) URINALYSIS REFLEX TO MICROSCOPIC NO CULTURE (04/03/2023 7:59 AM CDT) Color UA Colorless(A) Straw, Yellow 04/03/2023 8:54 AM CDT [facility] Clarity UA Clear Clear 04/03/2023 8:54 AM CDT [facility] Glucose UA 2+(A) Negative 04/03/2023 8:54 AM CDT [facility] Bilirubin UA Negative Negative 04/03/2023 8:54 AM CDT [facility] Ketone UA Trace(A) Negative 04/03/2023 8:54 AM CDT [facility] Specific Camby UA 1.005 1.005 - 1.030 04/03/2023 8:54 AM CDT [facility] Blood UA Negative Negative 04/03/2023 8:54 AM CDT [facility] pH UA 5.0 5.0 - 8.0 pH 04/03/2023 8:54 AM CDT [facility] Protein UA Negative Negative 04/03/2023 8:54 AM CDT [facility] Urobilinogen UA Negative Negative mg/dL 04/03/2023 8:54 AM CDT [facility] Nitrite UA Negative Negative 04/03/2023 8:54 AM CDT [facility] Leukocyte UA Negative Negative 04/03/2023 8:54 AM CDT [facility] Urine Microscopy Urine microscopy not indicated 04/03/2023 8:54 AM CDT [facility] Urine URINE SPECIMEN OBTAINED VIA INDWELLING URINARY CATHETER / Unknown Collection / Unknown 04/03/2023 7:59 AM CDT 04/03/2023 8:12 AM CDT Narrative [facility] - 04/03/2023 8:54 AM CDT Zachery Lawrence MD LAB - URI NALYSIS ORDERABLES [facility] [address] [place] [address] * (ABNORMAL) BLOOD GASES+LYTES VENOUS (04/03/2023 7:37 AM CDT) pH Venous 7.41 7.32 - 7.42 pH 04/03/2023 8:08 AM CDT [facility] pO2 Venous 102(H) 35 - 40 mmHg 04/03/2023 8:08 AM CDT [facility] pCO2 Venous 28(L) 40 - 50 mmHg 04/03/2023 8:08 AM CDT [facility] HCO3 Venous 17.7(L) 24 - 26 mmol/L 04/03/2023 8:08 AM CDT [facility] Base Excess Venous -5.5(L) -2.0 - 2.0 mmol/L 04/03/2023 8:08 AM CDT [facility] O2 Saturation Venous 98 >=70 % 04/03/2023 8:08 AM CDT [facility] Sodium Whole Blood 136 135 - 145 mmol/L 04/03/2023 8:08 AM CDT [facility] Potassium Whole Blood 3.8 3.5 - 5.5 mmol/L 04/03/2023 8:08 AM CDT [facility] Chloride WB 105 101 - 111 mmol/L 04/03/2023 8:08 AM CDT [facility] Calcium Ionized 1.16 mmol/L 8:08 AM CDT [facility] Ionized Calcium pH Adjusted 1.16(L) 1.19 - 1.34 mmol/L 04/03/2023 8:08 AM CDT [facility] Anion Gap (AG) Arterial 17 8 - 18 mmol/L 04/03/2023 8:08 AM CDT [facility] Laith's Test NA 04/03/2023 8:08 AM CDT [facility] Mode Bipap 04/03/2023 8:08 AM CDT [facility] FI O2 85.0 % 04/03/2023 8:08 AM CDT [facility] Mechanical Respiratory Rate (bpm) 16 04/03/2023 8:08 AM CDT [facility] BIPAP Insp Pressure (cmH2O) 12 04/03/2023 8:08 AM CDT [facility] BIPAP Exp Pressure (cmH2O) 5 04/03/2023 8:08 AM CDT [facility] Blood BLOOD SPECIMEN / Unknown 04/03/2023 7:37 AM CDT 04/03/2023 7:37 AM CDT Regan Kulkarni DO LAB - BLOOD GA SES ORDERABLES Performing Organization Address City/[facility] Co de Phone Number [facility] [address] [place] [address] * STREP PNEUMONIAE ANTIGEN URINE (04/03/2023 6:59 AM CDT) Pathologist [facility] Streptococcus pneumoniae Antigen Urine Negative Negative 04/04/2023 7:17 AM CDT [facility] Urine URINE / Unknown Collection / Unknown 04/03/2023 6:59 AM CDT 04/03/2023 7:03 AM CDT Narrative [facility] - 04/04/2023 7:17 AM CDT Patients who have received the Streptococcus pneumoniae vaccines may test positive in the 48 hours following vaccination. It is recommended to avoid testing within five days of receiving vaccination. Testing pediatric patients is discouraged because of their high rates of nasal colonization with Streptococcus pneumoniae leading to false positive results. Samples from patients taking antibiotics for more than 24 hours may cause false negatives. Regan Kulkarni DO LAB - MICROBIO LOGY ORDERABLES [facility] [address] [place] [address], [facility] [phone] * LEGIONELLA ANTIGEN URINE (04/03/2023 6:59 AM CDT) Pathologist [facility] Legionella Antigen Urine Negative Negative 04/04/2023 7:15 AM CDT [facility] Urine URINE / Unknown Collection / Unknown 04/03/2023 6:59 AM CDT 04/03/2023 7:03 AM CDT Narrative [facility] - 04/04/2023 7:15 AM CDT This assay detects Legionella pneumophila serogroup one (1) antigen. A negative test result does not rule out the possibility of Legionella infection due to other serogroups or species of Legionella. A positive result may indicate a recent or remote infection with serogroup 1. Regan Kulkarni DO LAB - MICROBIO LOGY ORDERABLES Performing Organization Address [facility] de Phone Number [facility] [address] [place] [address], [facility] [phone] * (ABNORMAL) HYDROXYBUTYRATE BETA (04/03/2023 6:59 AM CDT) Only the most recent of2 resultswithin the time period is included. Pathologist [facility] Beta-Hydroxybu tyrate 4.23(H) <0.50 mmol/L 04/03/2023 7:23 AM CDT [facility] Blood BLOOD SPECIMEN / Unknown Venipuncture / Unknown 04/03/2023 6:59 AM CDT 04/03/2023 7:03 AM CDT Narrative [facility] - 04/03/2023 7:23 AM CDT Results >1.5 mmol/L may be indicative of diabetic ketoacidosis. Use in conjunction with Serum Glucose levels. Regan Kulkarni DO LAB - CHEMISTR Y ORDERABLES Performing Organization Address City/[facility]/ZIP Co de Phone Number [facility] [address] [place] [address] * LACTIC ACID BLOOD (04/03/2023 6:59 AM CDT) Only the most recent of2 resultswithin the time period is included. Pathologist [facility] Lactic Acid 0.9 <=2 mmol/L 04/03/2023 7:20 AM CDT [facility] Blood BLOOD SPECIMEN / Unknown Venipuncture / Unknown 04/03/2023 6:59 AM CDT 04/03/2023 7:04 AM CDT Regan Kulkarni DO LAB - CHEMISTR Y ORDERABLES Performing Organization Address [facility] de Phone Number [facility] [address] [place] [address] * TSH REFLEX FREE T4 (04/03/2023 3:38 AM CDT) Only the most recent of2 resultswithin the time period is included. Pathologist [facility] TSH 1.435 0.350 - 4.940 uIU/mL 04/03/2023 6:57 AM CDT [facility] Blood BLOOD SPECIMEN / Unknown Venipuncture / Unknown 04/03/2023 3:38 AM CDT 04/03/2023 4:09 AM CDT Regan Kulkarni DO LAB - CHEMISTR Y ORDERABLES Performing Organization Address [facility] de Phone Number [facility] [id number] [place] [address] * (ABNORMAL) PT PTT PANEL (04/03/2023 3:38 AM CDT) Pathologist [facility] PT 14.8 12.1 - 14.8 sec 04/03/2023 4:29 AM CDT [facility] INR 1.2(H) 0.9 - 1.1 04/03/2023 4:29 AM CDT [facility] PTT 34.3 23.0 - 38.4 sec 04/03/2023 4:29 AM CDT [facility] Blood BLOOD SPECIMEN / Unknown Venipuncture / Unknown 04/03/2023 3:38 AM CDT 04/03/2023 4:09 AM CDT Narrative [facility] - 04/03/2023 4:29 AM CDT Conventional Warfarin Anticoagulant Therapy: INR Reference Range: 2.0-3.0 Intensive Warfarin Anticoagulant Therapy: INR Reference Range: 2.5-3.5 Heparin Therapeutic Range for PTT: 69.0 - 110.0 seconds. Elvin Recinos MD LAB - COAGULATION OR DERABLES Performing Organization Address City/[facility]/ZIP Co de Phone Number [facility] [address] [place] [address] * CULTURE BLOOD (04/02/2023 2:25 PM CDT) Only the most recent of2 resultswithin the time period is included. Pathologist [facility] Culture No growth day 5 DORIAN 04/07/2023 6:09 PM CDT [facility] Blood PERIPHERAL BLOOD / Unknown Venipuncture / Unknown 04/02/2023 2:25 PM CDT 04/02/2023 2:43 PM CDT Dilcia Kilpatrick APRN-MANAGER PMO LAB - MICROBI OLOGY ORDERABLES Performing Organization Address City/[facility]/ZIP Co de Phone Number [facility] [address] [phone] * (ABNORMAL) D-DIMER (04/02/2023 2:25 PM CDT) D-Dimer 7.90(H) 0.27 - 0.50 ug/mL FEU 04/02/2023 3:29 PM CDT [facility] Blood BLOOD SPECIMEN / Unknown Venipuncture / Unknown 04/02/2023 2:25 PM CDT 04/02/2023 2:43 PM CDT Narrative [facility] - 04/02/2023 3:29 PM CDT In the absence of clinical symptoms, a value less than or equal to 0.5 mcg/mL FEU significantly decreases the probability of PE/DVT (negative predictive value >95%). 1 mcg/ml FEU = 1 Fibrinogen Equivalent Unit (approximates 0.5 mcg/mL of D- dimer). Robi Duenas Esparza II, DO LAB - COAGULATION OR DERABLES [facility] [address] [place] [address] * CT CHEST W CONTRAST (04/02/2023 1:29 PM CDT) Anatomical Region Laterality Modality Chest Computed Tomogra phy 04/02/2023 1:37 PM CDT Impressions 04/02/2023 1:43 PM CDT IMPRESSION: SEVERE BILATERAL PULMONARY INFILTRATES, WORSE IN THE LEFT LUNG DESCRIBED ABOVE. PATTERN IS MOST SUGGESTIVE OF BILATERAL PNEUMONIA. SMALL TO MODERATE-SIZED LAYERING BILATERAL PARAPNEUMONIC EFFUSIONS. ANASARCA. > Interpreting Provider: Josef Branch MD on 04/02/2023 1:43 PM Narrative 04/02/2023 1:43 PM CDT PROCEDURE: CT CHEST W CONTRAST DATE/TIME OF EXAM: 04/02/2023 1:30 PM CLINICAL INDICATION: Worsening shortness of breath and cough. COMPARISON: Chest x-ray 04/02/2023 TECHNIQUE: CT of the chest was performed following intravenous contrast utilizing standard protocol. CT dose reduction technique was used, including Automated Exposure Control. CONTRAST: IOPAMIDOL 76 % IV SOLN:80 mL FINDINGS: Large alveolar infiltrate involving the near entirety of the left lung. Additional numerous patchy foci of parenchymal consolidation noted within the left upper lobe, lingula, and upper half of the left lower lobe. Air bronchogram formation noted within the left upper lobe, lingula, left lower lobe. Moderate to large patchy alveolar infiltrate involving the right upper lobe, right middle lobe, and upper half of the right lower lobe. Patchy consolidation noted within the right upper lobe. Small to moderate-sized layering bilateral pleural effusions. No pneumothorax. Heart size normal. No pericardial effusion. No pathologically enlarged lymph nodes. Diffuse body wall edema compatible with anasarca. Procedure Note Josef Branch MD - 04/02/2023 PROCEDURE: CT CHEST W CONTRAST DATE/TIME OF EXAM: 04/02/2023 1:30 PM CLINICAL INDICATION: Worsening shortness of breath and cough. COMPARISON: Chest x-ray 04/02/2023 TECHNIQUE: CT of the chest was performed following intravenous contrast utilizing standard protocol. CT dose reduction technique was used, including Automated ExposureControl. CONTRAST: IOPAMIDOL 76 % IV SOLN:80 mL FINDINGS: Large alveolar infiltrate involving the near entirety of the left lung. Additional numerous patchy foci of parenchymal consolidation notedwithin the left upper lobe, lingula, and upper half of the left lower lobe. Air bronchogram formation noted within the left upper lobe, lingula, leftlower lobe. Moderate to large patchy alveolar infiltrate involving the right upper lobe, right middle lobe, and upper half of the right lower lobe. Patchy consolidation noted within the right upper lobe. Small to moderate-sized layering bilateral pleural effusions. No pneumothorax. Heart size normal. No pericardial effusion. No pathologically enlarged lymph nodes. Diffuse body wall edema compatible with anasarca. IMPRESSION: SEVERE BILATERAL PULMONARY INFILTRATES, WORSE IN THE LEFT LUNG ASDESCRIBED ABOVE. PATTERN IS MOST SUGGESTIVE OF BILATERAL PNEUMONIA. SMALL TO MODERATE-SIZED LAYERING BILATERAL PARAPNEUMONIC EFFUSIONS. ANASARCA. > Interpreting Provider: Josef Branch MD on 04/02/2023 1:43 PM Dilcia Kilpatrick SUPERVISOR TYPE PHOTOGRAPHY-MANAGER [facility] CT ORDERABLES * RESPIRATORY PANEL WITH SARS-COV-2 BY PCR (ST) (04/02/2023 8:53 AM CDT) Adenovirus PCR Not detected Not detected 04/02/2023 3:23 PM CDT [facility] Coronavirus 229E PCR Not detected Not detected 04/02/2023 3:23 PM CDT [facility] Coronavirus HKU1 PCR Not detected Not detected 04/02/2023 3:23 PM CDT [facility] Coronavirus NL63 PCR Not detected Not detected 04/02/2023 3:23 PM CDT [facility] Coronavirus OC43 PCR Not detected Not detected 04/02/2023 3:23 PM CDT [facility] COVID-19 PCR Not detected Not detected 04/02/2023 3:23 PM CDT [facility] Human Metapneumovirus PCR Not detected Not detected 04/02/2023 3:23 PM CDT [facility] Human Rhinovirus/Enterov irus PCR Not detected Not detected 04/02/2023 3:23 PM CDT [facility] Influenza A PCR Not detected Not detected 04/02/2023 3:23 PM CDT [facility] Influenza B PCR Not detected Not detected 04/02/2023 3:23 PM CDT [facility] Parainfluenza Virus 1 PCR Not detected Not detected 04/02/2023 3:23 PM CDT [facility] Parainfluenza Virus 2 PCR Not detected Not detected 04/02/2023 3:23 PM CDT [facility] Parainfluenza Virus 3 PCR Not detected Not detected 04/02/2023 3:23 PM CDT [facility] Parainfluenza Virus 4 PCR Not detected Not detected 04/02/2023 3:23 PM CDT [facility] Respiratory Syncytial Virus PCR Not detected Not detected 04/02/2023 3:23 PM CDT [facility] Bordetella parapertussis PCR Not detected Not detected 04/02/2023 3:23 PM CDT [facility] Bordetella pertussis PCR Not detected Not detected 04/02/2023 3:23 PM CDT [facility] Chlamydia pneumoniae PCR Not detected Not detected 04/02/2023 3:23 PM CDT [facility] Mycoplasma pneumoniae PCR Not detected Not detected 04/02/2023 3:23 PM CDT [facility] Microbiology SPECIMEN FROM NASOPHARYNGEAL STRUCTURE / Unknown Collection / Unknown 04/02/2023 8:53 AM CDT 04/02/2023 9:00 AM CDT Narrative [facility] - 04/02/2023 3:23 PM CDT This nucleic amplification assay has received FDA authorization via the [employer]. Robi Esparza II, DO LAB - MICROBIOLOGY O RDERABLES [facility] [address] [place], [place] [address], [facility] [phone] * (ABNORMAL) HEMOGLOBIN A1C (04/02/2023 6:38 AM CDT) Only the most recent of7 resultswithin the time period is included. Hemoglobin A1c >14.0(H) <5.7 % 04/02/2023 7:08 AM CDT [facility] Estimated Average Glucose 04/02/2023 7:08 AM CDT [facility] Comment:Not Calculated Blood BLOOD SPECIMEN / Unknown Venipuncture / Unknown 04/02/2023 6:38 AM CDT 04/02/2023 6:46 AM CDT Narrative [facility] - 04/02/2023 7:08 AM CDT HbA1c Interpretation: Normal: < 5.7% Pre-diabetes: 5.7-6.4% Diabetes: Equal to or greater than 6.5% Test results diagnostic of diabetes should be repeated for confirmation. Treatment target values recommended by ADA and other clinical organizations should be used to evaluate metabolic control in patients. This test should not replace glucose testing for patients with Type 1 diabetes, pediatric patients, or women. Falsely low HbA1c results may be observed in patients with clinical conditions that shorten erythrocyte life span or decrease mean erythrocyte age such as the presence of unstable hemoglobin variants, elevated hemoglobin F level or other causes of hemolytic anemia. HbA1c may not accurately reflect glycemic control when clinical conditions that affect erythrocyte survival are present. Severe Iron deficiency anemia may yield falsely high results. Hemoglobin A1c assay should not be used to diagnose or monitor diabetes in patients with malignancy, recent blood transfusion, chronic kidney or liver disease. This method may yield falsely low results when hemoglobin (HbF) exceeds 5% in the specimen. The [employer] Consultant assay for the measurement of HbA1c is a National Glycohemoglobin Standardization Program (NGSP) certified method. Mary Kay Chaves PA-C LAB - CHEMISTRY [facility] Organization Address City/State/[facility] Co de Phone Number [facility] [address] [place] [address] * (ABNORMAL) MRSA DNA PCR (04/01/2023 8:47 PM CDT) [facility] MRSA DNA by PCR Detected( A) Not detected 04/02/2023 2:35 AM CDT [facility] Microbiology SPECIMEN FROM NASAL FOSSAE / Unknown Collection / Unknown 04/01/2023 8:47 PM CDT 04/01/2023 10:14 PM CDT Narrative [facility] - 04/02/2023 2:35 AM CDT Methicillin-resistant Staphylococcus aureus (MRSA) DNA is detected (presumed colonized with MRSA). July Ace MD LAB - MICROBIOLOGY O RDERABLES [facility] [address] [phone] * GLUCOSE PROTEIN KETONE URINE - POINT OF CARE (06/23/2022 12:59 PM MAIL DISTRIBUTION CLERK) Only the most recent of10 resultswithin the time period is included. Glucose UA 1 Negative [facility] Protein UA 2 Negative [facility] Ketone UA 0 Negative [facility] QC Verified Yes Yes [facility] POC T TESTING Urine URINE / Unknown 06/23/2022 1 2:59 PM MAIL DISTRIBUTION CLERK Sharon Beltran SUPERVISOR TYPE PHOTOGRAPHY-MANAGER PMO LAB - POINT OF CARE ORDERABLES Performing Organization Address City/[facility] Co de Phone Number [facility] POCT TESTING [address] [place] [address], [facility] [phone] * URINE DRUG SCREEN IMMUNOASSAY (06/23/2022 12:59 PM MAIL DISTRIBUTION CLERK) Only the most recent of6 resultswithin the time period is included. Amphetamines Screen Urine Not detected Not detected 06/23/2022 2:44 PM MAIL DISTRIBUTION CLERK [facility] Barbiturates Screen Urine Not detected Not detected 06/23/2022 2:44 PM MAIL DISTRIBUTION CLERK [facility] Benzodiazepines Screen Urine Not detected Not detected 06/23/2022 2:44 PM MAIL DISTRIBUTION CLERK [facility] Cannabinoids Screen Urine Not detected Not detected 06/23/2022 2:44 PM MAIL DISTRIBUTION CLERK [facility] Cocaine Screen Urine Not detected Not detected 06/23/2022 2:44 PM MAIL DISTRIBUTION CLERK [facility] Fentanyl Urine Not detected Not detected 06/23/2022 2:44 PM MAIL DISTRIBUTION CLERK [facility] Methadone Screen Urine Not detected Not detected 06/23/2022 2:44 PM MAIL DISTRIBUTION CLERK [facility] Opiate Screen Urine Not detected Not detected 06/23/2022 2:44 PM MAIL DISTRIBUTION CLERK [facility] Phencyclidine Screen Urine Not detected Not detected 06/23/2022 2:44 PM MAIL DISTRIBUTION CLERK [facility] Urine URINE / Unknown Collection / Unknown 06/23/2022 12:59 PM MAIL DISTRIBUTION CLERK 06/23/2022 2:04 PM MAIL DISTRIBUTION CLERK Narrative [facility] - 06/23/2022 2:44 PM MAIL DISTRIBUTION CLERK This drug screen is designed for MEDICAL purposes only. It is not to be used for legal purposes, including but not limited to worker's comp, police investigations, occupational issues, child custody, etc. Any positive result is only presumptive and must be confirmed with a separate confirmatory test ordered by the physician. Drug Screening Test Cutoff Values: AMPHETAMINES 1000 ng/mL BARBITURATES 200 ng/mL BENZODIAZEPINES 200 ng/mL CANNABINOIDS(THC) 50 ng/mL COCAINE 300 ng/mL FENTANYL 1 ng/mL METHADONE 300 ng/mL OPIATES 300 ng/mL PHENCYCLIDINE(PCP) 25 ng/mL Sharon Beltran SUPERVISOR TYPE PHOTOGRAPHY-MANAGER PMO LAB - URINE CHRISTY INA ORDERABLES [facility] [address] [place] [address] * IMAGING RADIOLOGY XRAY RESULTS ORDER (05/20/2022 4:15 PM MAIL DISTRIBUTION CLERK) Only the most recent of3 resultswithin the time period is included. Anatomical Region Laterality Modality Other Narrative 05/20/2022 4:15 PM MAIL DISTRIBUTION CLERK Ordered by an unspecified provider. Scanned Document IMAGING * LAB RESULTS ORDER (05/20/2022) Only the most recent of2 resultswithin the time period is included. 05/20/2022 Narrative 05/20/2022 Ordered by an unspecified provider. Scanned Document LAB - THERAPEUTIC DR GOLDEN MONITORING ORDERABLES * PREPARE (CROSSMATCH) RBC UNIT(S), 2 Units (05/18/2022 1:41 AM CDT) Unit Description AS1 LR PRBC [facility] Unit ABO B [facility] Unit Rh POS [facility] Product Number R02 [facility] Unit Donor # [id number] [facility] C BLOOD [facility] LAB Unit Status released [facility] Product Code [id number] [facility] Blood Type Barcode 7300 [facility] Expiration Date S [facility] Unit Description AS3 LR PRBC [facility] Unit ABO B [facility] Unit Rh POS [facility] Product Number R13 [facility] Unit Donor # [id number] [facility] Unit Status released [facility] Product [facility] [id number] [facility] Blood Type Barcode 7300 [facility] Expiration Date S [facility] Blood Bank BLOOD SPECIMEN / Unknown 05/14/2022 4:38 PM CDT Kendell Arriaza MD LAB - BLOOD BANK ORD ERABLES [facility] [address] [phone] * (ABNORMAL) BLOOD GASES CORD NARENDRA (ISTAT) (2022 5:04 PM CDT) Only the most recent of2 resultswithin the time period is included. pH Cord Venous POCT 7.32 7.28 - 7.40 pH 2022 5:10 PM CDT [facility] pCO2 Cord Venous POCT 52.5(H) 35 - 45 mm hg 2022 5:10 PM CDT [facility] pO2 Cord Venous POCT 16(L) 22 - 33 mm hg 2022 5:10 PM CDT [facility] HCO3 Cord Arterial POCT 27.2(H) 22 - 24 mmol/L 2022 5:10 PM CDT [facility] BE Cord Venous POCT Calc 0 -6.4 - 1.6 mmol/L 2022 5:10 PM CDT [facility] TCO2 Cord Venous POCT 29 22 - 30 mmol/L 2022 5:10 PM CDT [facility] O2 Saturation % Cord Venous Calc POCT 18 % 2022 5:10 PM CDT [facility] Site CORD NARENDRA 2022 5:10 PM CDT [facility] Sample iSTAT CORD NARENDRA 2022 5:10 PM CDT [facility] Blood CORD BLOOD SPECIMEN / Unknown 2022 5:04 PM CDT 2022 5:10 PM CDT Kendell Arriaza MD LAB - POINT OF CARE ORDERABLES Performing Organization Address City/State/[facility] Co de Phone Number [facility] [address] [place] [address] * PATHOLOGY TISSUE EXAM (STL) (2022 5:00 PM CDT) Only the most recent of3 resultswithin the time period is included. Case Report Surgical Pathology Report Case: [id number] Authorizing Provider: Robbi Duarte MD Collected: 2022 05:00 PM Ordering Location: [facility] Received: 05/19/2022 08:25 AM Pathologist: Jean Guillaume MD Specimen: Placenta 05/20/2022 11:12 AM [facility] Final Diagnosis Placenta, section: --Immature (31 and 3/7 gestational week age) placenta with: A) Trivascular umbilical cord negative for acute funisitis B) Placental membranes negative for meconium staining and acute chorioamnionitis C) Placental parenchyma with: 1. Multifocal infarcts comprising 5 percent of the disc 2. Negative for villitis and vasculopathy 3. :placental ratio at the 35th% and placental weight at the 50th% of the GWA 05/20/2022 11:12 AM [facility] Clinical History 26-year-old G10, P0 272 woman with a history of preeclampsia, type 1 diabetes mellitus methamphetamine abuse. 05/20/2022 11:12 AM [facility] Gross Description The requisition and specimen are identified with patient's name and date of . Received in formalin, specimen A, placenta is a placental disc with attached umbilical cord and membranes. The umbilical cord is inserted eccentrically, 2.5 cm from margin measuring 15 cm long and 1-1.2 cm diameter. The cord is trivascular and appropriately coiled. The membranes are partially attached to the cord for a length of 3 cm from the site of insertion. The membranes are inserted marginally and are camilo, opaque. The surface is blue-camilo with normal vasculature and scattered areas of white-camilo fibrin, less than 5%. The maternal surface is disrupted but appears complete. The placental disc is 321 g, 17.5 x 14 x 3 cm. Sectioning shows predominantly red-brown, spongy cut surfaces with multiple areas of white-camilo, firm, wedge-shaped parenchyma ranging 0.8-3 cm in greatest dimension a comprise 5 percent of the cut surfaces. Bindery Cutter Operator sections submitted as follows: A1-umbilical cord and membrane roll, A2-placental disc central, A3-placental disc peripheral, R1-W5-afqnk-camilo, firm areas. LJ 05/20/2022 11:12 AM [facility] Microscopic Description Review confirms the final diagnosis. 05/20/2022 11:12 AM [facility] Disclaimer All histochemical and/or immunohistochemical results are interpreted with controls that demonstrate appropriate staining reactions before reporting results. Note on use of immunocytochemistry reagents: This test was developed and its performance characteristic determined by [facility], Department of Laboratory Medicine. It has not been cleared or approved by the U.S. Food and Drug Administration (FDA). The FDA has determined that such clearance or approval is not necessary. The test is used for clinical purpose. It should not be regarded as investigational or for research. This laboratory is certified to perform high complexity testing. The performance characteristics of the IHC/STEVO assays have been validated on formalin-fixed paraffin embedded tissues only. The assays have not been validated on decalcified tissues. Results should be interpreted with caution. 05/20/2022 11:12 AM [facility] Embedded Images 05/20/2022 11:12 AM [facility] Pathology/Cytolo gy ENTIRE PLACENTA / Unknown 2022 5:00 PM CDT 05/19/2022 8:25 AM [facility] Robbi Duarte MD LAB - PATHOLOGY /CYTOLOGY ORDERABLES [facility] [address] [place] [address] * (ABNORMAL) BLOOD GASES CORD ART (ISTAT) (2022 4:59 PM CDT) Only the most recent of2 resultswithin the time period is included. pH Cord Arterial POCT 7.27 7.20 - 7.34 pH 05/17/2022 10:10 AM CDT [facility] pCO2 Cord Arterial POCT 62.7(H) 45 - 55 mm hg 05/17/2022 10:10 AM CDT [facility] pO2 Cord Arterial POCT <5(LL) 12 - 25 mm hg 05/17/2022 10:10 AM CDT [facility] HCO3 Cord Arterial POCT 29.0(H) 22 - 24 mmol/L 05/17/2022 10:10 AM CDT [facility] BE Cord Arterial POCT 0 -2.9 - 8.3 mmol/L 05/17/2022 10:10 AM CDT [facility] TCO2 Cord Arterial POCT 31 mmol/L 05/17/2022 10:10 AM CDT [facility] O2 Saturation Cord Art % Calc POCT 05/17/2022 10:10 AM CDT [facility] Site CORD ART 05/17/2022 10:10 AM CDT [facility] Sample iSTAT CORD ART 05/17/2022 10:10 AM CDT [facility] Blood CORD BLOOD SPECIMEN / Unknown 2022 4:59 PM CDT 05/17/2022 10:10 AM CDT Kendell Arriaza MD LAB - POINT OF CARE ORDERABLES Performing Organization Address City/State/[facility] Co de Phone Number [facility] [address] [place] [address] * Neuraxial Block (2022 4:42 PM CDT) Narrative Paradise Garibay APRN-VEHICLE OPERATOR - 2022 4:42 PM CDT Paradise Garibay APRN-CRNA 2022 4:54 PM Neuraxial Block Note Pre-Procedure: Procedure Name: Neuraxial Block Patient Location: OB Indications: surgical anesthesia Pre-Anesthetic Checklist: Patient identified, IV Checked, Risks and benefits discussed, Surgical consent verified, Monitors and equipment, Site examined, Pre-op evaluation done, Time-out performed, Informed consent obtained, Questions answered/anesthesia questions answered and Allergies reviewed Anticoagulation/ Anti-thrombosis status confirmed? Yes Monitors: BP, continuous pluse ox, EKG and End tidal CO2 Patient Condition: awake Patient Sedated? No Procedure: Block Type: Spinal Prep: Betadine Sterile Field: mask, cap/hat, sterile established and sterile gloves Approach: midline Skin was localized? Yes Skin localized with: lidocaine (XYLOCAINE) 1 % injection - Infiltration 1 mL - 2022 4:42:00 PM Spinal Block: Needle Gauge: 24 Needle Length: 51 mm Placement Site: L3-4 Number of Attempts: 1 CSF: free flow, aspiration before injection, aspiration during injection, aspiration after injection Degree of difficulty: none Procedure Tolerance: tolerated well Sensory Level: T6 Motor Blockade: Yes Position post procedure: head of bed elevated 30 degrees Vital Signs: Vital signs monitored and stable throughout. See anesthesia record for details., Vital signs moniitored and stable throughout. See nursing vitals flowsheet for details., heart tones monitored and stable throughout. Start Time: 2022 4:37 PM End Time: 2022 4:38 PM Total Time: 1 Staff: Anesthesia Provider: Paradise Garibay APRN-VEHICLE OPERATOR - performed the procedure Additional Notes: 15mg of bup. With 5 mcg precedex added to spinal Flaco Madrid MD GENERAL ANESTHESIA ORDERABLES * SONOGRAM - COMPLETE (05/15/2022 8:25 AM CDT) Only the most recent of12 resultswithin the time period is included. Anatomical Region Laterality Modality Other 05/15/2022 8:25 AM CDT Narrative 05/15/2022 10:19 AM CDT [facility] PHONE: FAX: Pat. Name: FARIBA POON. No: [id number] Study Date: 05/15/2022 8:25am , Age: 11 1995, 26 Height: 64 in Weight: 180 lb LMP: 09/24/2021 GA by LMP: 33w2d GA by Base: 31w2d SRINIVAS: 07/15/2022 GA by US: 29w4d SRINIVAS: 07/27/2022 GA Selected: 31w2d (From [facility]) SRINIVAS: 07/15/2022 Referring MD: Kendell Arriaza MD Court Administrator: Leydi Cline, RDMS, RDCS CPT4: 98531,32821,umbilical artery BMI: 30.89 Room: [address] [place] [address]/Ind: Pre-E w/ SF Vaginal bledding PPROM Anatomy Screen Methamphetamine use T1DM HTN History of PreEclampsia in prior Recurrent loss MEASUREMENTS & AGE GROWTH EVALUATION Measurement GA Range Srce %for GA Ratios ----- ---- ------- BPD 7.0 cm 28w1d (52k8b-51b7v) Hadl BPD <01 FL/BPD 0.85 (0.71 - 0.87) HC 26.6 cm 29w0d (30g5h-59c6g) Hadl HC <01 FL/AC 0.23 (0.20 - 0.24) AC 26.4 cm 30w3d (80a9m-93x4p) Hadl AC 23% HC/AC 1.01 (0.96 - 1.15) FL 5.9 cm 30w6d (36i4p-18j5l) Hadl FL 25% CI 0.73 (0.70 - 0.86) GA for sonogram 29w4d (23l7q-62q3j) Weight Estimate: based on (BPD,HC,AC,FL) Avg Weight: 1542 gm (1317-1767gm) Had : 3lbs, 6oz Normal: 1816 gm (1362-2270gm) Had Wt% 12% for 31w2d Heart Rate: 121 bpm Amniotic Fluid Index: 02.5cm (08.7-23.9)* Q1: 0.3cm Q2: 0.9cm Q3: 0.0cm Q4: 1.3cm EVAL, PLACENTA Presentation: cephalic with a presenting hand Placenta: anterior Previa: no previa seen Heart Rate: 121 bpm Amniotic Fluid Volume: oligohydramnios DOPPLER Umbilical - Mid Cord S/D 2.16(1.88 - 3.94) PI 0.79 (0.67 - 1.26) Anatomy!Normal!Abnormal!Suboptimal!Prev. Seen!Comments Cranium ! ! ! ! x ! Mdl (CSP/Thal! ! ! x ! ! Ventricles ! ! ! ! x ! Choroid Plexu! ! ! ! x ! Cerebellum ! ! ! ! x ! Cisterna M. ! ! ! ! x ! Orbits ! ! ! ! x ! Profile ! ! ! ! x ! Nasal Bone ! ! ! ! x ! Lip ! ! ! ! x ! Spine ! ! ! ! x ! Lungs ! ! ! x ! ! 4 Chamber Hea! ! ! x ! ! LVOT ! ! ! x ! ! RVOT ! ! ! x ! ! 3 Vessel View! ! ! x ! ! 3 Vessel Trac! ! ! x ! ! Cross-over ! ! ! x ! ! Ductal Arch ! ! ! ! x ! Aortic Arch ! ! ! ! x ! Caval View ! ! ! x ! ! Situs ! ! ! ! x ! Diaphragm ! ! ! ! x ! Stomach ! x ! ! ! x ! Bowel ! ! ! ! x ! Kidneys ! ! ! ! x ! Bladder ! x ! ! ! x ! 3 Vessel Cord! ! ! ! x ! Cord In! ! ! ! x ! Upper Extremi! ! ! ! x ! Hands ! ! ! ! x ! Lower Extremi! ! ! ! x ! Feet ! ! ! ! x ! External Nadiya! ! ! ! x ! Placental Cor! ! ! ! x ! CLINICAL SUMMARY Inpatient on Labor and delivery secondary to PPROM last night with history of noncompliance and ODS. A single fetus is seen in cephalic with a presenting hand presentation. The measurements today are consistent with less than expected size for the SRINIVAS provided with EFW at the lower limits of AGA. It is trending SGA, except AC 23% . The head measurements lagging but the measurements are still within the gestational age range. This is a normal variant most likely due to head shape/position and pelvis. The SRINIVAS is based on a prior ultrasound. The amniotic fluid volume is decreased. Normal appearing anterior placenta. The decreased amniotic fluid consistent with oligohydramnios secondary to her rupture membranes. hand/ arm is presenting with cephalic presentation. This finding was communicated to Dr. Duarte and Dr. Mcdonough. Unable to assess for BPP due to patient being nauseous and in pain. Patient asked underwater photographer to stop scanning. IMPRESSION: Single, live, intrauterine at 31w2d size is lower limits of AGA Amniotic fluid volume: oligohydramnios No major malformations were seen within the limitations of ultrasound. But due to her advanced gestation positioning and decreased amniotic fluid a complete anatomical survey could not be performed in order to complete the anatomy of says suboptimally visualized structures. Both ultrasound and screening have their limitations in detecting all congenital anomalies and chromosomal abnormalities/inherited disorders or genetic syndromes. RECOMMEND: Management as per inpatient service. Thank you for allowing us the opportunity to care for your patient. cc: Inpatient at time of study Paxton Sahu DO <Electronic Signature> 05/15/2022 10:18am Kendell Arriaza MD [facility] ORDERABLES * NONSTRESS TEST (05/15/2022 7:57 AM CDT) Narrative Kendell Arriaza MD - 05/15/2022 7:57 AM CDT Genevieve Mcdonough MD 05/15/2022 8:17 AM Non-Stress Test [facility] Patient Name: Fariba Poon LMP: Patient's last menstrual period was 09/24/2021. Gestational Age: 31w2d as of 05/15/2022 Estimated Date of Delivery: 07/15/22 Indications: Pre-Eclampsia NST date: 05/15/2022 NST duration: continuous Interpretation: Baseline: 120 beats/minute minimal variability non-Reactive Contractions: none Decelerations: occasional variables overnight Impression and Plan: FWB equivocal, continue monitoring as scheduled. Genevieve Mcdonough MD 05/15/2022 7:58 AM Kendell Arriaza MD [facility] ORDERABLES * TYPE + SCREEN PANEL (05/14/2022 4:35 PM CDT) Only the most recent of6 resultswithin the time period is included. ABO Rh B POS 05/14/2022 5:12 PM CDT [facility] Comment:History checked. Antibody Screen NEG 5:12 PM CDT [facility] Blood Bank BLOOD SPECIMEN / Unknown Venipuncture / Unknown 05/14/2022 4:35 PM CDT 05/14/2022 4:38 PM CDT Kendell Arriaza MD LAB - BLOOD BANK ORD ERABLES [facility] [address] [place], [place] [id number], [facility] [phone] * (ABNORMAL) FIBRINOGEN ACTIVITY (05/14/2022 4:18 PM CDT) Fibrinogen 548(H) 200 - 400 mg/dL 05/14/2022 4:52 PM CDT [facility] Blood BLOOD SPECIMEN / Unknown Venipuncture / Unknown 05/14/2022 4:18 PM CDT 05/14/2022 4:38 PM CDT Kendell Arriaza MD LAB - COAGULATION OR DERABLES Performing Organization Address [facility] Co de Phone Number [facility] [address] [place] [address] * PTT (05/14/2022 4:18 PM CDT) PTT 26.7 23.0 - 38.4 sec 05/14/2022 6:39 PM CDT [facility] Blood BLOOD SPECIMEN / Unknown Venipuncture / Unknown 05/14/2022 4:18 PM CDT 05/14/2022 4:38 PM CDT Narrative [facility] - 05/14/2022 6:39 PM CDT Heparin Therapeutic Range for PTT: 69.0 - 110.0 seconds. Kendell Arriaza MD LAB - COAGULATION OR DERABLES Performing Organization Address [facility]/ZIP Co de Phone Number [facility] [address] [place] [address] * (ABNORMAL) PT-INR (05/14/2022 4:18 PM CDT) PT 11.5(L) 12.1 - 14.8 sec 05/14/2022 4:51 PM CDT [facility] INR 0.8(L) 0.9 - 1.1 05/14/2022 4:51 PM CDT [facility] Blood BLOOD SPECIMEN / Unknown Venipuncture / Unknown 05/14/2022 4:18 PM CDT 05/14/2022 4:38 PM CDT Narrative [facility] - 05/14/2022 4:51 PM CDT Conventional Warfarin Anticoagulant Therapy: INR Reference Range: 2.0-3.0 Intensive Warfarin Anticoagulant Therapy: INR Reference Range: 2.5-3.5 Kendell Arriaza MD LAB - COAGULATION OR DERABLES Performing Organization Address City/State/[facility] Co de Phone Number [facility] [address] [place], [place] [id number] * NONSTRESS TEST (05/06/2022 10:30 AM CDT) Narrative Brittanie Rendon MD - 05/06/2022 10:30 AM CDT Brittanie Rendon MD 05/06/2022 5:07 PM Name: Fariba Poon Date of : 1995 Today's Date: 05/06/2022 30w0d NST RESULTS (XAVIER) OBJECTIVE FINDINGS Temp: 98.9 F (37.2 C), , Resp: 18, BP: 124/68 NST Indication(s): Other (Comment) (N/V, temperature) Uterine Irritability: Yes Contractions: Irregular Frequency: occasional Duration (sec) Range: 80-90 Perceived Intensity: Mild OBJECTIVE FINDINGS Movement: Present Monitoring Mode: External Baseline: 130 BPM Variability: Moderate Decelerations: None Accelerations: No OTHER INFORMATION Kim Asencio RN 05/06/2022 5:06 PM Duration: >20 minutes Indications: IUP at 30w0d, influenza BP: BP 124/68 Temp 98.9 F (37.2 C) (Oral) Resp 18 Ht 5' 4 (1.626 m) Wt 155 lb 12.8 oz (70.7 kg) SpO2 98% Interpretation: Fetus A: Baseline: Initially 155-160 beats/minute, decreased to 140 bpm baseline after ~1 hour reactive, moderate variability Contractions: rare Decelerations: none Recommendations: Continue testing as clinically indicated. Reassuring tracing. Brittanie Rendon MD Brittanie Rendon MD OB GYNE ORDERABLES * (ABNORMAL) PROTEIN CREATININE RATIO URINE RANDOM PNL (05/06/2022 8:37 AM CDT) Only the most recent of6 resultswithin the time period is included. Protein Urine 525.5(H) <11.9 mg/dL 05/06/2022 9:40 AM CDT [facility] Creatinine Urine 121.40 mg/dL 05/06/2022 9:40 AM CDT [facility] Protein/Creatin ine Ratio Urine 4.33 05/06/2022 9:40 AM CDT [facility] Urine URINE SPECIMEN OBTAINED BY CLEAN CATCH PROCEDURE / Unknown Collection / Unknown 05/06/2022 8:37 AM CDT 05/06/2022 8:43 AM CDT Sendy Miranda MD LAB - URINE INDEPENDENT SALES REPRESENTATIVE RY ORDERABLES [facility] [address] [place] [address] * (ABNORMAL) URINE MICROSCOPIC ONLY REFLEX TO CULTURE (05/06/2022 8:35 AM CDT) Only the most recent of3 resultswithin the time period is included. Reflex Status Culture to follow 05/06/2022 9:06 AM CDT [facility] RBC UA None Seen 0 - 5 # /hpf 05/06/2022 9:06 AM CDT [facility] WBC UA 21-50(A) 0 - 5 # /hpf 05/06/2022 9:06 AM CDT [facility] Bacteria UA 3+(A) None Seen 05/06/2022 9:06 AM CDT [facility] Squamous Epithelial Cells 0-2 0 - 5 /hpf 05/06/2022 9:06 AM CDT [facility] Mucus UA 2+ /LPF 05/06/2022 9:06 AM CDT [facility] Hyaline Casts 3-5(A) 0 - 2 /LPF 05/06/2022 9:06 AM CDT [facility] Urine URINE SPECIMEN OBTAINED BY CLEAN CATCH PROCEDURE / Unknown Collection / Unknown 05/06/2022 8:35 AM CDT 05/06/2022 8:43 AM CDT Narrative [facility] - 05/06/2022 9:06 AM CDT Brittanie Rendon MD LAB - U RINALYSIS ORDERABLES [facility] [address] [place] [address] * (ABNORMAL) URINALYSIS REFLEX MICROSCOPIC REFLEX CULTURE (05/06/2022 8:35 AM CDT) Only the most recent of3 resultswithin the time period is included. Color UA Yellow Straw, Yellow 05/06/2022 8:57 AM CDT [facility] Clarity UA Slt Cloudy(A) Clear 05/06/2022 8:57 AM CDT [facility] Glucose UA 1+(A) Negative 05/06/2022 8:57 AM CDT [facility] Bilirubin UA Negative Negative 05/06/2022 8:57 AM CDT [facility] Ketone UA Negative Negative 05/06/2022 8:57 AM CDT [facility] Specific Camby UA 1.021 1.005 - 1.030 05/06/2022 8:57 AM CDT [facility] Blood UA Negative Negative 05/06/2022 8:57 AM CDT [facility] pH UA 7.0 5.0 - 8.0 pH 05/06/2022 8:57 AM CDT [facility] Protein UA 2+(A) Negative 05/06/2022 8:57 AM CDT [facility] Urobilinogen UA Negative Negative mg/dL 05/06/2022 8:57 AM CDT [facility] Nitrite UA Negative Negative 05/06/2022 8:57 AM CDT [facility] Leukocyte UA 1+(A) Negative 05/06/2022 8:57 AM CDT [facility] Urine Microscopy Urine microscopy to follow 05/06/2022 8:57 [facility] Reflex Status Culture to follow 05/06/2022 8:57 AM CDT [facility] Urine URINE SPECIMEN OBTAINED BY CLEAN CATCH PROCEDURE / Unknown Collection / Unknown 05/06/2022 8:35 AM CDT 05/06/2022 8:43 AM CDT Narrative [facility] - 05/06/2022 8:57 AM CDT Brittanie Rendon MD LAB - U RINALYSIS ORDERABLES Performing Organization Address City/[facility]/ZIP Co de Phone Number [facility] [address] [place] [address] * CULTURE URINE (05/06/2022 8:35 AM CDT) Only the most recent of5 resultswithin the time period is included. Culture Urine 50,000-100,000 CFU/mL urogenital fritz DORIAN 05/08/2022 12:07 AM CDT [facility] Urine URINE SPECIMEN OBTAINED BY CLEAN CATCH PROCEDURE / Unknown Collection / Unknown 05/06/2022 8:35 AM CDT 05/06/2022 8:43 AM CDT Narrative [facility] - 05/08/2022 12:07 AM CDT Brittanie Rendon MD LAB - M ICROBIOLOGY ORDERABLES Performing Organization Address City/[facility]/ZIP Co de Phone Number [facility] [address] [place] [address], [facility] [phone] * (ABNORMAL) CHLAMYDIA + GC AMPLIFIED PROBE (STL) (05/06/2022 7:54 AM CDT) Only the most recent of2 resultswithin the time period is included. Chlamydia Amplified Probe Positive(A) Negative 05/06/2022 6:44 PM CDT [facility] GC Amplified Probe Negative Negative 05/06/2022 6:44 PM CDT [facility] Microbiology ENTIRE VAGINA / Unknown Collection / Unknown 05/06/2022 7:54 AM CDT 05/06/2022 7:59 AM CDT Narrative [facility] - 05/06/2022 6:44 PM CDT Results based on detection/no detection of ribosomal RNA by amplified method. Brittanie Rendon MD [facility] Performing Organization Address City/[facility]/ZIP Co de Phone Number [facility] [address] [place] [address], [facility] [phone] * (ABNORMAL) TRICHOMONAS RAPID TEST (05/06/2022 7:54 AM CDT) Only the most recent of2 resultswithin the time period is included. [facility] Trichomonas Rapid Test Positive( A) Negative 05/06/2022 8:11 AM CDT [facility] Microbiology VAGINAL SWAB / Unknown Collection / Unknown 05/06/2022 7:54 AM CDT 05/06/2022 7:59 AM CDT Brittanie Rendon MD LAB - [facility] Performing Organization Address City/[facility] Co de Phone Number [facility] [address] [place] [address] * (ABNORMAL) SARS-COV-2 (COVID-19) FLU A/B RSV PCR RAPID (05/06/2022 7:38 AM CDT) [facility] COVID-19 PCR Not detected Not detected 05/06/20 8:43 AM CDT [facility] Influenza A PCR Detected(A) Not detected 05/06/2022 8:43 AM CDT [facility] Influenza B PCR Not detected Not detected 05/06/2022 8:43 AM CDT [facility] RSV PCR Not detected Not detected 05/06/2022 8:43 AM CDT [facility] Microbiology SPECIMEN FROM NASOPHARYNGEAL STRUCTURE / Unknown Collection / Unknown 05/06/2022 7:38 AM CDT 05/06/2022 7:54 AM CDT Narrative [facility] - 05/06/2022 8:43 AM CDT Droplet Precautions Required. This nucleic acid amplification assay has been authorized by the Food and Drug administration (FDA) under an Emergency Use Authorization (EUA). This test is only authorized for the duration of time the declaration that circumstances exist justifying the authorization of emergency use of in vitro diagnostic tests for detection of SARS-CoV-2 virus and/or diagnosis of COVID-19 infection under section 564(b)(1) of the Act, 21 U.S.C 360bbb-3 (b)(1), unless the authorization is terminated or revoked sooner. Fact Sheets for this EUA assay are available upon request. Brittanie Rendon MD LAB - M ICROBIOLOGY ORDERABLES Performing Organization Address City/[facility]/ZIP Co de Phone Number [facility] [address] [place] [address] * KETONES QUALITATIVE URINE AUTO (03/18/2022 3:45 PM CDT) Only the most recent of2 resultswithin the time period is included. Ketone UA Negative Negative 03/18/2022 4:02 PM CDT [facility] Urine URINE / Unknown Collection / Unknown 03/18/2022 3:45 PM CDT 03/18/2022 3:53 PM CDT Narrative [facility] - 03/18/2022 4:02 PM CDT Kendell Arriaza MD LAB - URINALYSIS ORD ERABLES Performing Organization Address [facility] Co de Phone Number [facility] [address] [place] [phone] * SYPHILIS ANTIBODY CASCADING REFLEX (03/18/2022 1:59 PM CDT) Only the most recent of3 resultswithin the time period is included. Treponema pallidum Antibody Non Reactive Non Reactive 03/18/2022 3:33 PM CDT [facility] Comment: No Laboratory evidence of syphilis infection. Note: Circulating antibodies may be low or undetectable in early infection. If recent exposure is suspected, re-draw sample in 2-4 weeks and repeat testing. Blood BLOOD SPECIMEN / Unknown Venipuncture / Unknown 03/18/2022 1:59 PM CDT 03/18/2022 2:12 PM CDT Sharon Margotjackie [facility] LAB - SEROLOGY ORDERABLES Performing Organization Address [facility] Co de Phone Number [facility] [address] [place] [phone] * HIV-1 HIV-2 ANTIBODY + HIV P24 AG PANEL (03/18/2022 1:59 PM CDT) Only the most recent of2 resultswithin the time period is included. Pathologist [facility] HIV1/2 Ab + P24 Ag Non Reactive Non Reactive 03/18/2022 3:26 PM CDT [facility] Blood BLOOD SPECIMEN / Unknown Venipuncture / Unknown 03/18/2022 1:59 PM CDT 03/18/2022 2:12 PM CDT Narrative [facility] - 03/18/2022 3:26 PM CDT No Laboratory evidence of HIV infection. Sharon Beltran [facility] LAB - CHEMISTRY ORDERABLES Performing Organization Address [facility] Co de Phone Number [facility] [address] [place] [phone] * RUBELLA ANTIBODY IGG (03/18/2022 1:59 PM CDT) Only the most recent of2 resultswithin the time period is included. [facility] Rubella Antibody 2.03 Immune >0.99 index 03/20/2022 6:10 AM CDT [facility] ([facility] Comment: Non-immune <0.90 Equivocal 0.90 - 0.99 Immune >0.99 Blood BLOOD SPECIMEN / Unknown Venipuncture / Unknown 03/18/2022 1:59 PM CDT 03/18/2022 2:11 PM CDT Narrative [facility] ([facility]) - 03/20/2022 6:10 AM CDT Performed at: [facility] [id number] Autobody Technician: Edgar Patel PhD, Phone: [phone] Sharon Beltran [facility] LAB - SEROLOGY ORDERABLES [facility] ([facility] [address] [place] [address] * CYSTIC FIBROSIS MUTATION PANEL (03/18/2022 1:59 PM CDT) Cystic Fibrosis Screen Comment: 03/25/2022 11:10 AM CDT [facility] ([facility]) Comment: RESULTS: Negative for 32 mutations analyzed INTERPRETATION: This individual is negative for the mutations analyzed. This negative result may need further interpretation depending on the clinical indication. This result reduces but does not eliminate the risk to be a CF carrier. COMMENTS: The detection rate varies with ethnicity and is listed below. The presence of an undetected mutation in the CF gene cannot be ruled out. In the absence of family history, the remaining risk that a person with a negative result could have at least one CF mutation is listed in the table. If there is a family history of CF, these risk figures do not apply. As detailed information regarding this individual's family history would permit a more accurate assessment of this individual's risk to be a carrier of cystic fibrosis, please contact [facility] at for a revised report. Mutation Detection Detection rates are based on mutation Rates among Ethnic frequencies in patients affected with Groups cystic fibrosis. Among individuals with an atypical or mild presentation (e.g. congenital absence of the vas deferens, pancreatitis) detection rates may vary from those provided here: Carrier risk reduction when no family history Detection Ethnicity Rate Ashkenazi 08/07 to 97% Restoration 08/06 to 90% (non-) -Bolivian 65 to 69% 46 to 73% to 55% This interpretation is based on the clinical and family relationship information provided and the current understanding of the molecular genetics of this condition. MUTATIONS ANALYZED: G85E V520F [id number] 2183AA to G R117H G542X J7734D 2184delA R334W S549N 394delTT 2789+5G to A R347H S549R 621+1G to T 3120+1G to A R347P G551D 711+1G to T 3659delC A455E R553X 1078delT 3849+10kbC to T VccnsE291 R560T 1717-1G to A 3876delA YcaxiY669 R8459F 1898+1G to A 3905insT METHODS/LIMITATIONS: DNA is isolated from the sample and tested for the 32 CF mutations on the [employer] Array Platform (Third Age). Regions of the CFTR gene are amplified enzymatically and subjected to a solution-phase multiplex allele-specific primer extension with subsequent hybridization to a bead array and fluorescence detection. Polymorphisms F508C, I506V and I507V are included in this panel to rule out false positive [id number] homozygotes. Reflex testing of 5T is included in the panel for R117H interpretation. False positive or negative results may occur for reasons that include genetic variants, blood transfusions, bone marrow transplantation, erroneous representation of family relationships or contamination of a sample with maternal cells. REFERENCES: 1. Updates on Carrier Screening for Cystic Fibrosis. (2011) Am J Ob Gynecol 117(4):9164-9712 2. Bjorn et al. (2004) Tammy Med 6:387-91 3. Sarah, et al. (2002) Tammy Med 4:379-391 4. Preconception and carrier screening for cystic fibrosis: (2001)ACOG.ACMG publication Results Released By: Dontrell Mcelroy, PhD, [facility] Report Released By: Dr.Binu Mcelroy,PhD,[facility] Comment Comment 03/25/2022 11:10 AM CDT [facility] ([facility] Comment: The assay provides information intended to be used for carrier screening in adults of reproductive age, as an aid in screening, and as a confirmatory test for another medically established diagnosis in newborns and children. The test is not indicated for use in diagnostic testing, pre-implantation screening, or for any stand-alone diagnostic purposes without confirmation by another medically established diagnostic product or procedure. Blood BLOOD SPECIMEN / Unknown Venipuncture / Unknown 03/18/2022 1:59 PM CDT 03/18/2022 2:11 PM CDT [facility]) - 03/25/2022 11:10 AM CDT Performed at: 01 - [facility] [address] [id number] Autobody Technician: Sukhdeep Cruz [facility], Phone: [phone] Sharon Beltran [facility] LAB - HEMATOLOG Y ORDERABLES [facility] ([facility]) [address] [address] * HEPATITIS B SURFACE ANTIGEN W RFLX CONFIRMATION (03/18/2022 1:59 PM CDT) Only the most recent of2 resultswithin the time period is included. HBsAg Non Reactive Non Reactive 03/18/2022 3:33 PM CDT [facility] Blood BLOOD SPECIMEN / Unknown Venipuncture / Unknown 03/18/2022 1:59 PM CDT 03/18/2022 2:12 PM CDT Sharon Beltran [facility] LAB - CHEMISTRY ORDERABLES Performing Organization Address [facility] Co de Phone Number [facility] [address] [place], [place] [id number] * HEPATITIS C ANTIBODY (03/18/2022 1:59 PM CDT) Only the most recent of2 resultswithin the time period is included. HCV Antibody Screen Non Reactive Non Reactive 03/18/2022 3:25 PM CDT [facility] Blood BLOOD SPECIMEN / Unknown Venipuncture / Unknown 03/18/2022 1:59 PM CDT 03/18/2022 2:12 PM CDT Narrative [facility] - 03/18/2022 3:25 PM CDT Non Reactive - Antibodies to Hepatitis C virus (HCV) were not detected, result does not exclude early acute HCV infection. Sharon Beltran [facility] LAB - CHEMISTRY ORDERABLES Performing Organization Address City/[facility] Co de Phone Number [facility] [address] [place] [address] * (ABNORMAL) BLOOD GASES CORD NARENDRA (02/15/2020 6:33 PM CDT) pH Cord Venous 7.22(L) 7.28 - 7.40 pH 02/15/2020 6:51 PM CDT [facility] Comment:L pCO2 Cord Venous 53(H) 35 - 45 mm hg 02/15/2020 6:51 PM CDT [facility] Comment:H pO2 Cord Venous 18(L) 22 - 33 mm hg 02/15/2020 6:51 PM CDT [facility] HCO3 Cord Venous 21(L) 22 - 24 mmol/L 02/15/2020 6:51 PM CDT [facility] Comment:L BE Cord Venous -6.9 mmol/L 02/15/2020 6:51 PM CDT [facility] O2 Saturation Cord Venous 20 % 02/15/2020 6:51 PM CDT [facility] Mode Unknown 02/15/2020 6:51 PM CDT [facility] Laith's Test N/A 02/15/2020 6:51 PM CDT [facility] Sample Site UMB 02/15/2020 6:51 PM CDT [facility] Sample Type Venous 02/15/2020 6:51 PM CDT [facility] Friction Welding Machine Operator ID [id number] 02/15/2020 6:51 PM CDT [facility] Blood CORD BLOOD SPECIMEN / Unknown 02/15/2020 6:33 PM CDT 02/15/2020 6:33 PM CDT Heidi Chowdhury MD LAB - BLOOD GASES O RDERABLES [facility] [address] [place] [address] * (ABNORMAL) BLOOD GASES CORD ARTERIAL (02/15/2020 6:33 PM CDT) pH Cord Arterial 7.18(L) 7.20 - 7.34 pH 02/15/2020 6:52 PM CDT [facility] Comment:LL pCO2 Cord Arterial 63(H) 45 - 55 mm hg 02/15/2020 6:52 PM CDT [facility] Comment:H pO2 Cord Arterial 21 12 - 25 mm hg 02/15/2020 6:52 PM CDT [facility] Comment:L HCO3 Cord Arterial 22.9 22.0 - 24.0 mmol/L 02/15/2020 6:52 PM CDT [facility] BE Cord Arterial -6.8 mmol/L 02/15/20 20 6:52 PM CDT [facility] Comment:L O2 Saturation Cord Arterial 24 % 02/15/2020 6:52 PM CDT [facility] Comment:LL Mode Unknown 02/15/2020 6:52 PM CDT [facility] Laith's Test N/A 02/15/2020 6:52 PM CDT [facility] Sample Site UMB 02/15/2020 6:52 PM CDT [facility] Sample Type Arterial 02/15/2020 6:52 PM CDT [facility] Friction Welding Machine Operator ID [id number] 02/15/2020 6:52 PM CDT [facility] Notified Who ofelia magallon rn 02/15/2020 6:52 PM CDT [facility] Notification Time 02/15/2020 18:52 02/15/2020 6:52 PM CDT [facility] Notified By dante maloney rrt 02/15/2020 6:52 PM CDT [facility] Blood, arterial CORD BLOOD SPECIMEN / Unknown 02/15/2020 6:33 PM CDT 02/15/2020 6:33 PM CDT Heidi Chowdhury MD LAB - BLOOD GASES O RDERABLES Performing Organization Address City/State/[facility] Co de Phone Number [facility] [address] [phone] * EPIDURAL BLOCK PERF (02/15/2020 11:40 AM CDT) Narrative Lori Martell APRN-CRNA - 02/15/2020 11:40 AM CDT Lori Martell APRN-CRNA 02/15/2020 12:57 PM Neuraxial Block Note Pre-Procedure: Procedure Name: Neuraxial Block Patient Location: OB Indications: labor analgesia and at patient's request Pre-Anesthetic Checklist: Patient identified, IV Checked, Risks and benefits discussed, Surgical consent verified, Monitors and equipment, Site examined, Pre-op evaluation done, Time-out performed, Informed consent obtained, Questions answered/anesthesia questions answered and Allergies reviewed Anticoagulation/ Anti-thrombosis status confirmed? Yes Supplemental O2: room air Monitors: EKG, continuous pluse ox and BP Patient Condition: awake Patient Sedated? No Procedure: Block Type: Epidural Prep: Betadine Sterile Field: mask, cap/hat, sterile established and sterile gloves Approach: midline Skin was localized? Yes Skin localized with: lidocaine (XYLOCAINE) 1 % injection, 1 mL Epidural Block: Is this procedure for postop pain? No Needle Type: Tuohy Needle gauge: 18 G Needle length: 90 mm Placement Site: L3-L4 Number of Attempts: 1 Loss of Resistance: 8 air Catheter length at skin (cm): 11 CSF Aspirated from catheter: No Blood Aspirated: No Test Dose: lidocaine 1.5% with 1-200,000 epinephrine 3 mL at 02/15/2020 11:40 AM Test Dose Response: No Epidural Local Anesthetic Used? No Epidural Infusion Medications: Ropivacaine: 0.2% with Fentanyl 2mcg/mL in NS , 150 cc (mL) at 10 mL/hr Degree of difficulty: none Procedure Tolerance: tolerated well Sensory Level: T6 Motor Blockade: No Position post procedure: left uterine displacement Vital Signs: Vital sings monitored and stable throughout. See anesthesia record for details., Vital signs moniitored and stable throughout. See nursing vitals flowsheet for details., heart tones monitored and stable throughout. Staff: Anesthesia Provider: Lori Martell APRN-VEHICLE OPERATOR - performed the procedure Bib Uribe MD GENERAL ANESTHESIA ORDERABLES * XR CHEST 1VW (02/15/2020 8:18 AM CDT) Anatomical Region Laterality Modality Chest Radiographic Deepthi ging 02/15/2020 8:21 AM CDT Narrative 02/15/2020 8:21 AM CDT Exam: Portable chest. History: Severe pre-eclampsia, third trimester Findings/Impression: No priors. No focal consolidation, pleural effusion, or pneumothorax is identified. The cardiac silhouette and mediastinal contours are normal. *Reading Radiologist: Crispin Joy on 02/15/2020 at 8:21 AM Procedure Note Crispin Joy DO - 02/15/2020 Exam: Portable chest. History: Severe pre-eclampsia, third trimester Findings/Impression: No priors. No focal consolidation, pleural effusion, or pneumothorax is identified. The cardiac silhouette and mediastinal contours are normal. *Reading Radiologist: Crispin Joy on 02/15/2020 at 8:21 AM Em Zavala MD DIAGNOSTIC IMAGING O RDERABLES * SARS-COV-2 (COVID-19) RAPID (02/15/2020 2:42 AM CDT) COVID-19 PCR Not detected Not detected, Invalid 02/15/2020 3:50 AM CDT [facility] Microbiology SPECIMEN FROM NASOPHARYNGEAL STRUCTURE / Unknown Collection / Unknown 02/15/2020 2:42 AM CDT 02/15/2020 2:50 AM CDT [facility] - 02/15/2020 3:50 AM CDT The Cepheid Xpert Xpress SARS-COV-2 has been authorized by the Food and Drug administration (FDA) under an Emergency Use Authorization (EUA). This test has been validated in accordance with the FDA's guidance document Policy for Diagnostic Testing in Laboratories Certified to perform High Complexity Testing under CLIA prior to Emergency Use Authorization for Coronavirus Disease-2019 during the Public Health Emergency issued on September 10, 2019. FDA independent review of this validation is pending. This test is only authorized for the duration of time the declaration that circumstances exist justifying the authorization of emergency use of in vitro diagnostic tests for detection of SARS-COV-2 virus and/or diagnosis of COVID-19 infection under 564(b)(1)of the Act, 21 U.S.C. 360bbb-3 (b) (1), unless the authorization is terminated or revoked sooner. Radha Dickey MD LAB - MICROBIOLOGY ORDERABLES [facility] [address] [place], [place] [id number] * BLOOD TYPE VERIFICATION (02/15/2020 2:42 AM CDT) Only the most recent of2 resultswithin the time period is included. ABO Rh B POS 02/15/2020 6:1 3 AM CDT [facility] Blood Bank BLOOD SPECIMEN / Unknown Lab Venipuncture / Unknown 02/15/2020 2:42 AM CDT 02/15/2020 5:24 AM CDT Heidi Chowdhury MD LAB - BLOOD BANK OR DERABLES [facility] [address] [id number] [phone] * NONSTRESS TEST (02/13/2020 6:22 PM CDT) Narrative Heidi Chowdhury MD - 02/13/2020 6:22 PM CDT Alma Caldwell RN 02/13/2020 6:22 PM Name: Fariba Poon Date of : 1995 Today's Date: 02/13/2020 34w1d NST RESULTS (XAVIER) OBJECTIVE FINDINGS Temp: 98 F (36.7 C), , Resp: 18, BP: 151/96 NST Indication(s): Pre-eclampsia with previous Uterine Irritability: No Contractions: Not present OBJECTIVE FINDINGS Movement: Present Monitoring Mode: External Baseline: 125 BPM Variability: Moderate Decelerations: None Accelerations: Yes OTHER INFORMATION Alma Caldwell RN Eladio Hogan MD OB GYNE ORDERABLES * (ABNORMAL) URIC ACID BLOOD (02/13/2020 4:01 PM CDT) Only the most recent of2 resultswithin the time period is included. Uric Acid 6.4(H) 2.6 - 6.0 mg/dL 02/13/2020 4:30 PM CDT [facility] Blood BLOOD SPECIMEN / Unknown Venipuncture / Unknown 02/13/2020 4:01 PM CDT 02/13/2020 4:05 PM CDT Gracie Brambila SUPERVISOR TYPE PHOTOGRAPHY-CNM LAB - CHEM ISTRY ORDERABLES Performing Organization Address City/[facility]/ZIP Co de Phone Number [facility] [address] [place] [address] * ECHO (01/24/2020 8:29 AM CDT) Anatomical Region Laterality Modality Other 01/24/2020 8:29 AM CDT Narrative 01/24/2020 10:37 AM CDT [facility] PHONE: FAX: Pat. Name: FARIBA POON Pat. No: [id number] Study Date: 01/24/2020 8:29am , Age: 13 1995, 24 Pregnancies: 8, Para 1161 Height: 64 in Weight: 140 lb LMP: 06/19/2019 GA by LMP: 31w2d GA by Base: 31w2d SRINIVAS: 03/25/2020 GA by US: 29w5d SRINIVAS: 04/05/2020 GA Selected: 31w2d (LMP) SRINIVAS: 03/25/2020 Referring MD: MD Alyce, [facility] Court Administrator: Azeb Gerber RDMS CPT4: [id number] BMI: 24.03 Hist/Ind: Type 1 diabetes Single Umbilical Artery History of asthma Remote history of seizures Tobacco and marijuana use Low-risk NIPT (female) Anatomy completed MEASUREMENTS & AGE GROWTH EVALUATION Measurement GA Range Srce %for GA Ratios ----- ---- ------- BPD 7.4 cm 29w6d (80j7f-42v9v) Hadl BPD 6% FL/BPD 0.75 (0.71 - 0.87) HC 27.5 cm 30w1d (25u8f-79f7q) Hadl HC 2% FL/AC 0.22 (0.20 - 0.24) AC 25.6 cm 29w6d (18n9a-42q5i) Hadl AC 10% HC/AC 1.07 (0.96 - 1.15) FL 5.6 cm 29w2d (15a0w-46t3f) Hadl FL 3% CI 0.76 (0.70 - 0.86) HL 5.0 cm 29w0d (40a4c-73q1t) Eldon HL 12% GA for sonogram 29w5d (73o9t-96h6w) Weight Estimate: based on (BPD,HC,AC,FL) Avg Weight: 1434 gm (1225-1644gm) Had : 3lbs, 2oz Normal: 1812 gm (1359-2265gm) Had Wt% 5% for 31w2d Heart Rate: 164 bpm Amniotic Fluid Index: 17.5cm (08.7-23.9) Q1: 6.4cm Q2: 4.0cm Q3: 3.9cm Q4: 3.2cm Biophysical Profile: 02/17 Breathin Tone: 2 Movement: 2 AFV: 2 EVAL, PLACENTA Presentation: cephalic Placenta: anterior Heart Rate: 164 bpm Amniotic Fluid Volume: normal DOPPLER Umbilical - Mid Cord S/D 2.22(1.88 - 3.95) PI 0.81 (0.67 - 1.26) CLINICAL SUMMARY Study Number: 5 A single fetus is seen in cephalic presentation. The measurements today are consistent with less than expected size for the SRINIVAS provided. The SRINIVAS is based on her LMP and a prior ultrasound. The amniotic fluid volume is within normal limits. No major malformations were seen within the limitations of ultrasound. ECHOCARDIOGRAM WITH COLOR FLOW MAPPING AND DOPPLER PULSE WAVE- Indication-- T1DM Quality - fair to good ( position) General Cardiac Findings: 1. Situs- Normal 2. Cardiac Position- Normal and angle 3. Cardiac Size- Normal 4. HR- Normal 5. Rhythm- Regular without ectopy 6. Function- Within normal limits 7. Additional Findings: MPI = 0.28, mPR = 123ms Cardiac Anatomy and Doppler Flow Interrogation: 1. Segmental- (S,D,S) 2. Pericardium- No effusions 3. Atria Right Atrium- Normal Left Atrium- Normal Atrial Septum- Foramen ovale with right to left bulging Pulmonary Veins- At least two pulmonary veins were seen entering the left atrium. 4. Atrio-Ventricular Valves Tricuspid Valve- Normal, no TR noted. Normal E/A Mitral Valve - Normal, no MR noted. Normal E/A 5. Ventricles Right Ventricle- Normal Left Ventricle- Normal Septum- Appears intact, normal size 6. Semilunar Valves Pulmonary Valve- Normal flow patterns. Normal PSV Aortic Valve - Normal flow patterns. Normal PSV 7. Great Arteries- Normally related via 3 vessel and transtracheal views Pulmonary Artery- Normal Aorta- Normal with normal flow pattern without turbulence or aliasing Ductus Arteriosus- Normal Aortic Arch- Normal, left sided through transtracheal view 8. Great Veins- IVC/SVC- Normally related and equal in size Azygous Normally position and size Persistent Right Umbilical Vein - absent Persistent Left Superior Vena Cava absent Coronary sinus Normal Ductus Venosus - Normal 9. Thymus - Present Additional comments: Small septal defects, minor valve abnormalities, pulmonary venous anomalies and coarctation cannot be excluded. SUMMARY: Normal echocardiogram findings. I discussed the echocardiogram findings with the patient. She is aware that all heart defects, and thus all genetic disorders, cannot be excluded as noted above. If you have any questions regarding this report, please do not hesitate to contact me. IMPRESSION: Single, live, intrauterine at 31w2d size is small for gestational age Amniotic fluid volume: within normal limits Normal echocardiogram Normal umbilical Doppler study RECOMMEND: Ultrasound in 1 week for 2 x weekly BPP/NST with Doppler studies Please be advised that these recommendations are being made in the best interest of our patients during the COVID 19 Pandemic. Thank you for allowing us the opportunity to care for your patient. Filippo Ramírez MD <Electronic Signature> 01/24/2020 10:37am Filippo Ramírez MD [facility] ORDERABLES * FIRST TRI NUCHAL TRANSLUCENCY W:SEQ SCREEN (09/20/2019 2:55 PM CDT) Anatomical Region Laterality Modality Other 09/20/2019 2:55 PM CDT Narrative 09/20/2019 4:21 PM CDT [facility] PHONE: FAX: Pat. Name: FARIBA POON Pat. No: [id number] Study Date: 09/20/2019 2:55pm , Age: 13 1995, 24 Pregnancies: 8, Para 1161 Height: 64 in Weight: 140 lb LMP: 06/19/2019 GA by LMP: 13w2d GA by Base: 13w2d SRINIVAS: 03/25/2020 GA by US: 13w0d SRINIVAS: 03/27/2020 GA Selected: 13w2d (LMP) SRINIVAS: 03/25/2020 Referring MD: Lory Marino MD Court Administrator: Chantal Fleming RDMS, RVT CPT4: 24308,41860 BMI: 24.03 Hist/Ind: Nuchal translucency Type 1 diabetes History of asthma Remote history of seizures Tobacco and marijuana use Low-risk NIPT (female) MEASUREMENTS & AGE GROWTH EVALUATION Measurement GA Range Srce %for GA Ratios ----- ---- ------- CRL 6.8 cm 13w0d (24k1k-64i0g) Hadl CRL 40% GA for sonogram 13w0d (47c2o-30l9c) based on (CRL) Avg Markers for Chromosomal Abnormality: NT 1.5 mm (Normal) Heart Rate: 153 bpm EVAL, PLACENTA Location: intrauterine Gestational Sac: normal Yolk Sac: not seen Embryo: visualized Heart Rate: 153 bpm Anatomy!Seen!Not Seen!Comments Myometrium ! x ! ! Right Ovary ! ! x ! Left Ovary ! ! x ! Cul de sac ! x ! ! Calvarium ! x ! ! Midline Falx ! x ! ! 4th Ventricle! x ! ! Ventricles ! x ! ! Choroid Plexu! x ! ! Nasal Bone ! x ! ! 4 CH ! ! x ! Transtracheal! ! x ! Abdominal Cor! x ! ! Diaphragm ! x ! ! Spine ! ! x ! Stomach ! x ! ! Kidneys ! x ! ! Bladder ! x ! ! Upper Extremi! x ! ! Lower Extremi! x ! ! CLINICAL SUMMARY Study Number: 2 IMPRESSION: 1) Xavier gestation, 13w2d 2) CRL measurement is consistent with the LMP-based SRINIVAS of 03/25/20 3) No abnormalities were detected on first trimester anatomic survey 4) The nuchal translucency measures 1.5 mm RECOMMEND: Detailed anatomic survey around 20 weeks Thank you for allowing us the opportunity to care for your patient. Deja Miranda MD <Electronic Signature> 09/20/2019 04:20pm Kehinde Solorzano MD [facility] ORDERABLES * PAP THINPREP (08/30/2019 2:06 PM MAIL DISTRIBUTION CLERK) Diagnosis Comment 09/02/2019 11:08 AM MAIL DISTRIBUTION CLERK [facility] Comment:NEGATIVE FOR INTRAEP ITHELIAL LESION OR MALIGNANCY. Specimen Adequacy Comment 020 11:08 AM MAIL DISTRIBUTION CLERK [facility] Comment:Satisfactory for adriana luation. No endocervical component is identified. Performed by Comment 09/02/2019 11:08 AM MAIL DISTRIBUTION CLERK [facility] Comment:Lamberto Aleman totechnologist Comment . 09/02/2019 11:08 AM MAIL DISTRIBUTION CLERK [facility] Note Comment 09/02/2019 11:08 AM MAIL DISTRIBUTION CLERK [facility] Comment: The Pap smear is a screening test designed to aid in the detection of premalignant and malignant conditions of the uterine cervix. It is not a diagnostic procedure and should not be used as the sole means of detecting cervical cancer. Both false-positive and false-negative reports do occur. Pathology/Cytolo gy ENTIRE ENDOCERVIX / Unknown Collection / Unknown 08/30/2019 2:06 PM MAIL DISTRIBUTION CLERK 08/30/2019 2:32 PM MAIL DISTRIBUTION CLERK Narrative [facility] - 09/02/2019 11:08 AM MAIL DISTRIBUTION CLERK Performed at: [address] [place] [address] [place] [id number] Autobody Technician: Diane Rodriguez MD, Phone: [phone] Specimen Comment: Source.............Endocervix Specimen Comment: No. of containers..01 ThinPrep Vial Genevieve Locke MD LAB - PATHOLOGY/CYTO LOGY ORDERABLES [facility] [address] [place] [address] * PANORAMA TEST (08/30/2019) Trisomy 21 Low Risk Trisomy 18 Low Risk Trisomy 13 Low Risk Monosomy X Low Risk Triploidy/Renae shing Twin NIPT Low Risk Blood BLOOD SPECIMEN / Unknown 08/30/2019 Narrative Guadalupe Heath RN - 09/07/2019 Predicted Sex: female Fraction: 4.6% Panorama - [place] Screen Hard copy results are scanned under Media. Hansa Haskins MD LAB - CHEMISTRY [facility] * EPIDURAL BLOCK PERF (02/13/2017 2:05 PM CDT) Narrative Bib Uribe MD - 02/13/2017 2:05 PM CDT Jin Ca APRN-VEHICLE OPERATOR 02/13/2017 8:52 AM NEURAXIAL BLOCK PROCEDURE Procedure: Neuraxial Block Patient Location: OB Indications: at patient's request Pre-Anesthetic Checklist: Patient identified, IV Checked, Site examined, Monitors and equipment, Informed consent obtained, Surgical consent verified, Time-out performed, Allergies reviewed, Risks and benefits discussed, Pre-op evaluation done and Questions answered/anesthesia questions answered Anticoag/Antithrombisos Status Confirmed? Yes Monitors: BP, continuous pluse ox, EKG and End tidal CO2 Patient Condition: awake Patient Position: sittingPatient Sedated? No Procedure: Block Type: Epidural Prep: Betadine Sterile Field: mask, cap/hat, sterile established and sterile gloves Approach: Midline Skin localized with: lidocaine 1%, 3 mL Caudal Block: Needle Type: Tuohy Loss of Resistance (cm): 6 Catheter Length at Skin (cm): 12 Test Dose comment Amount: 3 mL Test Dose Amount: 3 Epidural Block: Procedure for pain? No Needle Type: Tuohy Needle Gauge: 18 G Needle Length: 3.5 in Placement Site: L3-L4 Loss of resistance/ depth of insertion (cm): 6, saline Catheter Length at skin (cm): 12 CSF Aspirated: Negative Blood Aspirated: Negative Test Dose: lidocaine 1.5% with 1-200,000 epinephrine Test Dose common Amount: 3 Test Dose Vol ( in not common dose): 3 mL Epidural Local Anesthesia Section: Ropivacaine: 0.2% with Fentany 2mcg/ml 5 mL Epidural Infusion Medications: Ropivacaine: 0.2% with Fentanyl 2mcg/mL in NS 12 cc/hr (mL/hr) Degree of Difficulty: none Procedure Tolerance: tolerated well Sensory Level: T10 Position post procedure: head of bed elevated 30 degrees Vitals monitored & stable, see nursing vitals heart tones monitored and stable throughout. Procedure Start Time: 02/13/2017 7:56 AM. Procedure End Time: 02/13/2017 8:06 AM. Procedure Total Time: 10 minutes. Staff Section Anesthesia Provider: JIN CA Performed Bib Uribe MD GENERAL ANESTHESIA ORDERABLES * (ABNORMAL) CULTURE STREP B (02/12/2017 6:50 AM CDT) Culture Strep B Streptococcus agalactiae (Group B)(AA) DORIAN 02/14/2017 3:58 PM CDT [facility] Microbiology MISCELLANEOUS SAMPLES / Unknown Collection / Unknown 02/12/2017 6:50 AM CDT 02/12/2017 6:57 AM CDT Narrative [facility] - 02/14/2017 3:58 PM CDT Susceptibility testing of penicillin, other beta-lactam antibiotics, and vancomycin is not necessary for beta-hemolytic streptococci groups A,B,C and G because resistant strains have not been recognized. Poppy Plaza MD LAB - MICROBIOLOGY O RDERABLES [facility] [address] [place] [address] [phone] * (ABNORMAL) LDH BLOOD (02/11/2017 5:50 PM CDT) LDH 258(H) 100 - 200 U/L 02/11/2017 6:26 PM CDT [facility] Blood BLOOD SPECIMEN / Unknown Venipuncture / Unknown 02/11/2017 5:50 PM CDT 02/11/2017 5:56 PM CDT Poppy Plaza MD LAB - CHEMISTRY [facility] Performing Organization Address City/State/[facility] Co de Phone Number [facility] [address] [place] [address] * BIOPHYSICAL PROFILE W NST (01/28/2017 11:50 AM CDT) Anatomical Region Laterality Modality Other 01/28/2017 11:5 0 AM CDT Narrative 01/28/2017 2:59 PM CDT [facility] PHONE: FAX: Pat. Name: FARIBA POON Gay. No: [id number] Study Date: 01/28/2017 11:50am , Age: 11 1995, 21 Pregnancies: 1 Height: 65 in Weight: 130 lb LMP: 06/06/2016 GA by LMP: 33w5d GA by 1st: 33w5d GA Selected: 33w5d (From First S) SRINIVAS: 03/13/2017 Referring MD: Sandra Pretty MD Court Administrator: Joana Houston RDMS BMI: 21.63 Hist/Ind: Type I DM Complete Anatomy Screen Growth Heart Rate: 142 bpm Amniotic Fluid Index: 22.1cm (08.2-24.7) Q1: 7.0cm Q2: 4.7cm Q3: 3.1cm Q4: 7.3cm Biophysical Profile: 10/10 Breathin Tone: 2 NST: 2 Movement: 2 AFV: 2 CLINICAL SUMMARY Study Number: 7 A xavier fetus is identified in cephalic presentation. The placenta is posterior. The amniotic fluid volume is within normal limits. TESTING The Biophysical profile score is 10/10. The NST is reactive without decelerations. IMPRESSION: 1. Single, live, IUP at 33w5d 2. Cephalic presentation 3. Normal amniotic fluid volume 4. Reassuring testing RECOMMEND: Continue testing Assess growth every 3-4 weeks on ultrasound. Thank you for allowing us the opportunity to care for your patient. Levi Adkins MD <Electronic Signature> 01/28/2017 02:59pm Levi Adkins MD [facility] ORDERABLES * ECHO CONSULT - (12/10/2016 3:28 PM CDT) 12/10/2016 3:28 PM CDT Narrative Procedure Note Charity Hitchcock MD - 12/11/[address] [place] [address] Fax Echocardiogram Report Pat.Name: FARIBA POONID: [id number] .Date: 12/10/2016 Exam Time: 3:28:00 PM Study Type: Echo Age: 11 1995,21Y Sex: FEMALE Sonogrphr: Joana DavisKEVIN shepherd [facility]. Stat.:Outpatient CPT - 4: 71532, 53088, 75869, 80504 Reason for Study:Maternal type I diabetes History / Clinical:Diabetes 144 Procedures: 2D Complete, Doppler Complete, Color Flow Visit ID: [id number] SUMMARY: Study Data: GA: 26w5d weeks. SRINIVAS: 03/13/2017 . : 3. Para: 0. Type: Axvier. Lie: Vertex. Impression: The echocardiogram was within normal limits; however small atrial and ventricular septal defects and persistent ductus arteriosus cannot be excluded as findings. Findings: Anatomic Relationships: Left sided cardiac apex (levocardia). There is normal visceral-cardiac situs, and normal segmental cardiac anatomical relationship. Systemic Veins: There is normal systemic venous return. Pulmonary Veins: The visualized pulmonary veins drain normally to the left atrium. Right Atrium: The right atrial size is normal. Left Atrium: The left atrial size is normal. Atrial Septum: Patent foramen ovale is seen with the foramen flap bowing from right to left and color flow is right to left. Tricuspid Valve: The tricuspid valve is structurally normal. The inflow pattern is normal. Tricuspid velocity is within the normal range. There is no regurgitation present. Mitral Valve: The mitral valve is structurally normal. The inflow pattern is normal. Mitral velocity is within the normal range. There is no regurgitation present. Right Ventricle: The cavity size is normal. The wall thickness is normal. The systolic function is normal. RV Outflow Tract: The outflow tract is normal. Left Ventricle: The cavity size is normal. The wall thickness is normal. The systolic function is normal. LV Outflow Tract: The outflow tract is normal. Ventricular Septum: There is no defect with no shunting. Pulmonary Valve: Leaflets exhibited normal mobility. The transpulmonic velocity is within the normal range. There is no regurgitation present. Aortic Valve: Leaflets exhibited normal mobility. The transaortic velocity is within the normal range. There is no regurgitation present. Pulmonary Artery: The MPA is normal with confluent branch pulmonary arteries. Aorta: aortic arch visualized and is without obstruction by 2D, color flow and Doppler. Ductus Arteriosus: The antegrade flow velocity and pattern in the ductal arch is normal. A normal ductus arteriosus is appreciated. Hydrops Assessment: No pericardial effusion. No evidence of ascites or pleural effusion. Rhythm: The rhythm is normal. There is 1:1 AV conduction. Dopplers: Flow in the ductus venosus is normal. The umbilical vein flow pattern is normal. The umbilical artery flow pattern is normal. MEASUREMENTS: DOPPLER Mitral Valve MV pkE 0.4 m/s MV pkA 0.6 m/s Tricuspid Valve TV pkE 0.5 m/s Aortic Valve AVpkPG 2.9 mmHg AVpkVel 0.9 m/s Pulmonic Valve PV pkPG 2.9 mmHg PV pkVel 0.9 m/s 2D Ventricular Septum IVSd 3 mm MMODE HR 141.6 bpm HR 141.6 bpm Signed 12/11/2016 04:04 PM Charity Hitchcock MD Levi Adkins MD ECHO ORDERABLES [facility] [address] [place] [address] * TSH (10/22/2016 8:43 PM CDT) [facility] Signature TSH 1.87 0.358 - 3.740 uIU/mL 10/22/2016 10:14 PM CDT [facility] Blood BLOOD SPECIMEN / Unknown Venipuncture / Unknown 10/22/2016 8:43 PM CDT 10/22/2016 8:51 PM CDT Kusum Tinsley MD LAB - CHEMISTRY [facility] Organization Address City/State/ZIP Co de Phone Number [facility] [address] [place] [address] Care Teams Security Assistant Relationship Specialty Start Date End Date None, Physician [address] [place] [address] PCP - General 04/01/23
[2024-09-03 11:09] VITALS: BP 114/77; PULSE 113; RESP 18; TEMP 36.6; O2SAT 100
--- NOTE | 2024-09-03 11:10 | ED_ITS ---
HPI - URI/Sore Throat General Chief Complaint: Upper Respiratory Infection Stated Complaint: cough and congestion/sore throat History of Present Illness HPI Narrative: 29 y/o female with T1 DM presented for c/o nasal congestion, sore throat, cough and chest congestion. Onset 5 days. Denies sob, wheezing, n/v/d/f/c. Pt vapes daily. Has been using an albuterol inhaler she was given by a family member. also taking mucinex. Says blood sugars run from 120-450. Related Data Home Medications ?Medication ?Instructions ?Recorded ?Confirmed ?Last Taken ?Type insulin glargine 100 unit/mL (3 20 unit subcut DIRECTED 09/03/21 09/03/21 Unknown History mL) subcutaneous pen (Basaglar KwikPen U-100 Insulin) insulin NPH isoph U-100 human 100 unit subcut 03/27/24 Unknown History unit/mL subcutaneous suspension (Humulin N NPH U-100 Insulin (isophane susp)) Allergies Allergy/AdvReac Type Severity Reaction Status Date / Time latex Allergy Mild RASH Verified 09/03/24 11:05 sulfamethoxazole (From Allergy Hives Verified 09/03/24 11:05 Bactrim) trimethoprim (From Bactrim) Allergy Hives Verified 09/03/24 11:05 Review of Systems Review of Systems: per HPI Exam Narrative: GENERAL: mildly Ill-appearing, no acute distress. EYES: conjunctivae clear ENT: Mucous membranes moist. TM pearly haji with normal light reflex bilaterally; no tragal tenderness. Oropharynx not erythematous without lesions. No drooling, no hoarseness, no trismus, uvula midline. No tripod positioning, hot potato voice, or soft palate swelling. NECK: Supple. No lymphadenopathy CHEST: Clear to auscultation, breath sounds equal. No respiratory distress, speaks in full sentences. HEART: Regular rate and rhythm. No murmur heard. SKIN: Warm, dry, no rash. NEURO: Alert and oriented x3. Course Course Emergency Course: Patient is aware of diagnosis, understands and agrees to treatment plan. Anticipatory guidance given. Patient agrees to follow-up as directed and is aware of reasons to seek care at the emergency department. Portions of this record may have been created with voice recognition software Level of Care: Express Care Visit MDM - URI/Sore Throat MDM Narrative Medical decision making narrative: neg flu and covid result reviewed with pt. Advise supportive treatments. Patient is appropriate for outpatient treatment and follow-up. Differential Diagnosis Differential diagnosis: Likely upper respiratory infection, viral infection and pharyngitis Discharge Plan Discharge Clinical Impression: Viral infection Patient Disposition: Home, Self-Care Condition: Stable Instructions: Acute Bronchitis (ED) Additional Instructions: Negative flu and COVID were negative Take the medication as directed- monitor blood sugar levels while taking a steroid Recommendations: Flonase spray and Zyrtec (or Claritin/Rina) over the counter Cough syrup may cause drowsiness; avoid driving or take it at night time. Use sugar free cough syrup if you are diabetic. Tylenol 1000mg every 8 hours as needed for pain Symptomatic treatment includes: rest, fluids, and increase humidity of the air at home. Follow up with your primary care provider in 1 week. Go to the ER for worsening symptoms or concerns. Patient Language: Romanian Prescriptions: New prednisone 20 mg tablet 20 mg PO DAILY Qty: 4 0RF albuterol sulfate 90 mcg/actuation HFA aerosol inhaler 2 inh inhalation QID PRN (Reason: shortness of breath or wheezing) Qty: 8.5 0RF No Action Basaglar KwikPen U-100 Insulin 100 unit/mL (3 mL) insulin pen 20 unit SUBCUT DIRECTED Humulin N NPH U-100 Insulin 100 unit/mL suspension SUBCUT penicillin V potassium 500 mg tablet 500 mg PO Q12H 10 Days Qty: 20 0RF meloxicam 7.5 mg tablet 7.5 mg PO BID 7 Days Qty: 14 0RF Follow-up/Referrals: PHYSICIAN,MANAGER TECHNICAL TRAINING [Primary Care Provider] -
[2024-09-03 11:26] LABS: EDCOVIDSCREEN Negative (Negative); EDINFLUASCREEN Negative (Negative); EDINFLUBSCREEN Negative (Negative)
== END 2024-09-03 11:26 | disposition home or self-care (01) ==
PROVIDERS: Emergency Provider Nurse Practitioner Family; Referring Provider Emergency Medicine
DX: B34.9 Viral infection, unspecified (principal); Z20.822 Contact with and (suspected) exposure to COVID-19; E10.9 Type 1 diabetes mellitus without complications; Z79.4 Long term (current) use of insulin; F17.290 Nicotine dependence, other tobacco product, uncomplicated
CPT/HCPCS: 87426; 87804; 99213; G0463

== ENCOUNTER 2024-12-15 09:01 | Emergency (ER) | payer OTHER, SELFPAY ==
--- NOTE | ~2024-12-15 | XR_ITS ---
XR hip LT 2V w AP pelvis 12/15/2024 09:43 Indication: Left lateral hip pain Procedure: AP pelvis and 2 views left hip Comparison: No prior studies for comparison. Findings: No fracture, subluxation or dislocation. No soft tissue abnormality. No foreign bodies. Sma ll bone islands present in the left femur proximally. Impression: 1: No acute fracture. Reviewed, dictated and finalized at location A. Impression: 1: No acute fracture.
[2024-12-15 09:09] VITALS: BP 131/92; PULSE 94; RESP 16; TEMP 36.2; O2SAT 100
--- NOTE | 2024-12-15 09:19 | ED.LOWEXIN ---
HPI - Extremity Injury (Lower) General Chief Complaint: Extremity Injury, Lower Stated Complaint: LT Hip Injury Time Seen by Provider: 12/15/24 09:15 Source: patient Mode of arrival: ambulatory Limitations: no limitations History of Present Illness HPI Narrative: Maxine is a 29-year-old female patient presenting to the clinic today with complaints of left lateral hip pain x1 week. She reports the pain is sharp and feels as though she is having a muscle spasm. Rates the pain currently an 8/10. Has been taking ibuprofen, muscle relaxer, and tramadol. The muscle relaxer the tramadol has been helping the pain and she rested yesterday however last night she was unable to sleep due to the pain. Denies any known injury. Denies any URI symptoms. Denies any loss of bowel or bladder. She is a type 1 diabetic. 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 States that they do not accept her insurance. Related Data Home Medications ?Medication ?Instructions ?Recorded ?Confirmed ?Last Taken ?Type insulin glargine 100 unit/mL (3 20 unit subcut DIRECTED 09/03/21 09/03/21 Unknown History mL) subcutaneous pen (Basaglar KwikPen U-100 Insulin) insulin NPH isoph U-100 human 100 unit subcut 03/27/24 Unknown History unit/mL subcutaneous suspension (Humulin N NPH U-100 Insulin (isophane susp)) Allergies Allergy/AdvReac Type Severity Reaction Status Date / Time latex Allergy Mild RASH Verified 12/15/24 09:16 sulfamethoxazole (From Allergy Hives Verified 12/15/24 09:16 Bactrim) trimethoprim (From Bactrim) Allergy Hives Verified 12/15/24 09:16 Review of Systems Review of Systems: Pertinent positives per HPI. Patient denies any fever, chills, rash, headache, visual changes, dizziness, cough, runny nose, sore throat, shortness of breath, chest pain, palpitations, nausea, vomiting, diarrhea, constipation, abdominal pain, or any urinary issues. PMFSH Comments At the time of my signature, I reviewed and agree with the nursing past medical, surgical, social, and family history. There is no relevant family history pertinent to the patient complaint. Exam Narrative: General: Well-developed, well nourished, in no apparent distress Head: Normocephalic, atraumatic. Cardio: Regular rate and rhythm, s1 and s2 normal, no murmur appreciated. Resp: Clear to auscultation bilaterally, no rhonchi, rales, wheezing or rubs. Musculoskeletal: No deformity, lateral posterior hip tender to palpation, pain with ambulation, steping up, and with internal and external rotation, no shortne grossly normal range of motion, muscle strength strong and equal, peripheral pulse strong, no edema, no cyanosis, normal gait and station Course Course Emergency Course: Portions of this record may have been created with voice recognition software. Level of Care: Express Care Visit Vital Signs Vital signs: Vital Signs Temperature 36.2 C L 12/15/24 09:09 Pulse Rate 94 12/15/24 09:09 Respiratory Rate 16 12/15/24 09:09 Blood Pressure 131/92 H 12/15/24 09:09 Pulse Oximetry 100 12/15/24 09:09 Oxygen Delivery Room Air 12/15/24 09:09 Temperature 36.2 C L 12/15/24 09:09 Pulse Rate 94 12/15/24 09:09 Respiratory Rate 16 12/15/24 09:09 Blood Pressure 131/92 H 12/15/24 09:09 Pulse Oximetry 100 12/15/24 09:09 Oxygen Delivery Room Air 12/15/24 09:09 Vital signs reviewed MDM - Extremity Injury (Lower) MDM Narrative Medical decision making narrative: At the time of visit patient is resting comfortably on the exam table. Patient appears to be nontoxic. Medications: Toradol 30 mg IM given in the clinic today Labs: Urinalysis positive for blood, protein, and glucose. Patient is type 1 diabetic and has not taken her insulin this morning. Bedside test was negative. Diagnostics: X-ray of left hip/pelvis was performed and negative for any sign of fracture or malalignment. Does show some bony islands to the proximal femur Plan: I suspect patient has left lateral hip pain. X-rays negative for any fracture. Urinalysis is negative for any sign of infection. Bedside test was negative in the clinic today. Will send in prescription for tramadol and baclofen. Will give ortho referral. Supportive measures were discussed with the patient and they voiced understanding discharge instructions and agrees to treatment plan. Return precautions reviewed Differential Diagnosis Differential diagnosis: Likely other (Hip pain, hip sprain, hip bursitis, muscle strain, bone cancer, hip fracture, hip malalignment) Lab Data Labs: Lab Results 12/15/24 Range/Units 09:27 POC Urine Color Light/pale POC Urine Clarity Clear POC Urine pH 7.0 POC Ur Specif [place] 1.010 POC Urine Protein 2+ (Negative) POC Ur Glucose (UA) 2+ (Negative) POC Urine Ketones Negative (Negative) POC Urine Blood Trace (Negative) POC Urine Nitrite Negative (Negative) POC Urine Bilirubin Negative (Negative) POC Urine Urobilinogen 0.2 POC U Leukocyte Esteras Negative (Negative) POC Urine HCG, Qual Negative (Negative) Imaging Data Radiologist's impression: ITS Impressions Hip/Pelvis X-Ray 12/15/24 09:55 Impression: 1: No acute fracture. Discharge Plan Discharge Clinical Impression: Left hip pain Patient Disposition: Home Condition: Stable Instructions: Antibiotic Form, Hip Pain (ED) Additional Instructions: Take any prescription medication only as prescribed. Be mindful of sedation precautions given to you if taking a muscle relaxer. May use heat or ice to the affected area Consider massage or chiropractor adjustment if this was discussed with provider May use blue emu, lidocaine patches, or asper cream to affected area- do not apply heat or ice directly over cream- can cause burn. Complete appropriate back stretching exercises. Follow up with your PCP in 3-5 days if symptom persist. Patient Language: Palestinian Prescriptions: New tramadol 50 mg tablet 50 mg PO Q6H PRN (Reason: pain) 3 Days Qty: 12 0RF baclofen 10 mg tablet 10 mg PO TID PRN (Reason: muscle spasm) 7 Days Qty: 21 0RF No Action albuterol sulfate 90 mcg/actuation HFA aerosol inhaler 2 inh inhalation QID PRN (Reason: shortness of breath or wheezing) Qty: 8.5 0RF Basaglar KwikPen U-100 Insulin 100 unit/mL (3 mL) insulin pen 20 unit SUBCUT DIRECTED Humulin N NPH U-100 Insulin 100 unit/mL suspension SUBCUT Follow-up/Referrals: Kurt,Renzo Pathak MD [Primary Care Provider] - Chino Garibay MD [Physician] - 1 Day (Left hip pain) Stand Alone Forms: Work/School Release IP Time of Disposition: 10:10 Quality NIHSS Nursing Documentation ED NIHSS nursing documentation: reviewed/agree
--- OUTSIDE RECORDS SUMMARY | 2024-12-15 09:30 | XMS_ITS | Clinical Summary ---
Author Organization [facility] Address [address] [place] [address] Care Team Providers Care Home Support Worker Name Role Phone Unknown, Notinfile Primary Care [...] yariel associated with type 1 diabetes mellitus 03/27/2023 Methamphetamine use 07/24/2022 Anxiety and depression 03/28/2020 Stage 1 [...] Epidur al Livin g Complications:Pre eclampsia Delivery Location:[facility] 020 34w 3d 1.99 kg (4 lb 6.2 oz) F Vag-S pont Epidur al Complications:Pre eclampsia Delivery Location:[facility]. 021 IAB 8w0 d Last Filed Vital Signs Vital Sign Reading Time Taken Comments Blood Pressure 128/79 05/24/2024 3:40 PM UPHOLSTERY INSTRUCTOR Pulse 100 05/24/2024 3:40 PM UPHOLSTERY INSTRUCTOR Temperature 36.8 C (98.3 F) 05/24/2024 1:39 PM UPHOLSTERY INSTRUCTOR Respiratory Rate 18 05/24/2024 3:40 PM UPHOLSTERY INSTRUCTOR Oxygen Saturation 100% 05/24/2024 3:40 PM UPHOLSTERY INSTRUCTOR Inhaled Oxygen Concentration - - Weight 59.9 kg (132 lb) 05/24/2024 1:39 PM UPHOLSTERY INSTRUCTOR Height 162.6 cm (5' 4) 05/24/2024 1:39 PM UPHOLSTERY INSTRUCTOR Body Mass Index 22.66 05/24/2024 1:39 PM UPHOLSTERY INSTRUCTOR Plan of Treatment Health Maintenance Due Date Last Done Comments Albumin Creatinine Ratio, Urine 1997 Depression Screening 1997 Foot Exam 1997 Hepatitis C Screening 1997 Pneumococcal vaccine <65 (2 of 2 - PPSV23) 2003 06/28/2002 Dilated Eye Exam 2007 Lipid Panel 2007 HPV Vaccines (2 - 2-dose series) 11/20/2008 05/23/20 08 Regular Well Visit/Exam 18-64 2015 Cervical Cancer Screening 08/30/2020 08/30/2019 Hemoglobin A1C 10/27/2023 04/27/2023, 03/14, 03/27/2023, Additional history exists Covid-19 Vaccine (4 2023-2 5 season) 2024 06/23/2022, 03/12/2021, 02/18/2021 TSH Level 09/30/2024 10/01/2023, 04/27/2023 Influenza Vaccine (Season Ended) 2025 04/02/2023, 06/23/2022, 08/30/2019, Additional history exists eGFR 05/14/2025 05/14/2024, 10/11, 04/27/2023, Additional history [...] BLOOD ORDERABLES Final Result Performing Organization Address City/[facility]/ZIP Co de Phone Number [facility] [address] [facility] [place] [address] * TSH (04/27/2023 7:18 AM CDT) Thyroid Stimulating Hormone 2.44 0.30 - 4.20 mcIUnit/mL [facility] Blood 04/27/2023 7:18 AM CDT 04/27/2023 10:06 AM CDT Rhoda Tapia MD LAB BLOOD ORDERABLES Final Resu lt Performing Organization Address City/[facility]/ZIP Co de Phone Number [facility] [place] [address] * (ABNORMAL) Hemoglobin A1c (04/27/2023 7:18 AM CDT) Hgb A1C 8.8(H) 4.0 - 5.6 % [facility] Estimated Average Glucose 206 mg/dL [facility] Comment: The ADA recommends reporting an estimated [...] LAB BLOOD ORDERABLES Final Resu lt [facility] Department [place] [address] from Last 3 Months or Most Recently Relevant to Health Maintenance Insurance [facility] Advance Directives For more information, please contact: [phone] * Full Code (Latest Code Status on File) Date Activated Date Inactivated Comments 03/27/2023 6:22 AM 03/31/2023 6:58 PM Care Teams Home Support Worker Relationship Specialty Start Date End Date Unknown, Notinfile PCP - General 12/12/24
--- OUTSIDE RECORDS SUMMARY | 2024-12-15 09:30 | XMS_ITS | Referral Summary ---
Author Organization [facility] Address [address] [place] [address] Care Team Providers Care [place] Support Worker Name Role Phone Unknown, Notinfile [...] Comments Blood Pressure 128/79 05/24/2024 3:40 PM MANAGER DIABETES Pulse 100 05/24/2024 3:40 PM MANAGER DIABETES Temperature 36.8 C (98.3 F) 05/24/2024 1:39 PM MANAGER DIABETES Respiratory Rate 18 05/24/2024 3:40 PM MANAGER DIABETES Oxygen Saturation 100% 05/24/2024 3:40 PM MANAGER DIABETES Inhaled Oxygen Concentration - - Weight 59.9 kg (132 lb) 05/24/2024 1:39 PM MANAGER DIABETES Height 162.6 cm (5' 4) 05/24/2024 1:39 PM MANAGER DIABETES Body Mass Index 22.66 05/24/2024 1:39 PM MANAGER DIABETES Plan of Treatment Not on file Procedures [...] BLOOD ORDERABLES Final Result Performing Organization Address City/[facility]/ZIP Co de Phone Number [facility] [address] [facility] [place] [address] * TSH (04/27/2023 7:18 AM CDT) Thyroid Stimulating Hormone 2.44 0.30 - 4.20 mcIUnit/mL [facility] Blood 04/27/2023 7:18 AM CDT 04/27/2023 10:06 AM CDT Result [facility] Rhoda Tapia MD LAB BLOOD ORDERABLES Final Resu lt Performing Organization Address [facility] de Phone Number [facility] [place] [address] * (ABNORMAL) Hemoglobin A1c (04/27/2023 7:18 AM CDT) Hgb A1C 8.8(H) 4.0 - 5.6 % [facility] Estimated Average Glucose 206 mg/dL [facility] Comment: The ADA recommends reporting an estimated Average Glucose (eAG) with all Hemoglobin A1c results using the equation derived from a study of 507 normal and diabetic adults. Minority populations were underrepresented and children were not included. (Diabetes Care 2020; 43(S1): S66-S76). The eAG is not equivalent to a fasting glucose. Blood 04/27/2023 7:18 AM CDT 04/27/2023 10:06 AM CDT Result [facility] Rhoda Tapia MD LAB BLOOD ORDERABLES Final Resu lt Performing Organization Address [facility] Co de Phone Number [facility] [place] [address] from Last 3 Months or Most Recently Relevant to Health Maintenance Insurance [facility] Advance Directives For more information, please contact: [phone] * Full Code (Latest Code Status on File) Date Activated Date Inactivated Comments 03/27/2023 6:22 AM 03/31/2023 6:58 PM Care Teams [place]anau Support Worker Relationship Specialty Start Date End Date Unknown, Notinfile PCP - General 12/12/24
--- OUTSIDE RECORDS SUMMARY | 2024-12-15 09:31 | XMS_ITS | Clinical Summary ---
Author Organization [facility] Address [address] [place] [address] Care Team Providers Care Terminal Supervisor Name Role Phone None, Physician Primary Care Provider Unavailabl e Source Comments [facility],non-owned Affiliates and Associated Physician Practices is amultiple site organization consisting of ambulatory clinics and hospital sitesin [place], [place] and [place]. This disclosure is being madepursuant to the Care Everywhere program and may not contain all information available regarding this patient. Last updated 18.[facility] Allergies Active Allergy Reactions Criticality Noted Date Comments Latex Rash Medium 08/27/2016 Skin Adhesives Urticaria Medium 05/19/2022 Sulfamethoxazole W-Trimethoprim Urticaria Medium 05/14 Medications * This document contains information received from the source organization and may not represent a complete record from that organization. * Be aware that medications may not be up to date on this document. Alwaysverify current medications with the patient. aspirin (Aspirin) 81 MG chew tablet Take 1 (one) tablet by mouth once daily 30 tablet 3 Active busPIRone (Buspar) 10 MG tablet Take 1 (one) tablet by mouth 3 times daily 3 Active hydrOXYzine HCl (Atarax) 25 MG tablet Take 1 (one) tablet by mouth 4 times daily as needed for Itching 3 Active gabapentin (Neurontin) 100 MG capsule Take 2 (two) capsules by mouth 3 times daily 3 Active insulin aspart (NovoLOG) pen Inject 0 (zero) Units to 12 (twelve) Units subcutaneously 3 times daily with meals 3 Active insulin glargine (Lantus/Semgle e) 100 units/mL pen Inject 20 (twenty) Units subcutaneously at bedtime 3 Active hydroxyurea (Hydrea) 500 MG capsule Take 2 (two) capsules by mouth once daily 3 Active folic acid (Folvite) 1 MG tablet Take 1 (one) tablet by mouth once daily 3 Active melatonin 3 MG tablet Take 1 (one) tablet by mouth at bedtime 3 Active predniSONE (Deltasone) 10 MG tablet Take 4 tablets daily for 3 days, take 3 tablets daily for 3 days, take 2 tablets daily for 3 days, then take 1 tablet daily for 3 days 0 3 Active budesonide-for moterol (Symbicort) 160-4.5 MCG/ACT inhaler Inhale 2 (two) puffs by mouth 2 times daily 3 Active albuterol HFA (ProAir HFA) 108 (90 Base) MCG/ACT inhaler Inhale 2 (two) puffs by mouth every 4 hours as needed for Shortness of Breath, Wheezing or Cough 8.5 g 3 Active Oxygen Oxygen continuous at 3 L/min via nasal cannula and 3 L with activity. - Estimate length of need (number of months): 1 1 Each 3 Active insulin glargine (Lantus/Semgle e) 100 units/ml injection Inject 20 (twenty) Units subcutaneously at bedtime for 30 days 5 mL 1 4 Active insulin aspart (NovoLOG FLEXPEN) pen Inject 12 (twelve) Units subcutaneously 3 times daily before meals 5 mL 1 4 Active Active Problems Patient Care Coordination No te Formatting of this note migh t be different from the original. [place] [employer] form completed. Diapers given. 12/29/2019 [...] HgA1c: 11.8% 03/18/22 CMP: creatinine: 1.14, ALT/AST: 16/15, glucose: 436 Protein/creatinine ratio: 1.34 Supervision of [...] Preeclampsia, severe 020 Forceps delivery 08/31/2019 Immunizations Immunization Administration Dates Next Due [employer] BIVALENT 12Y+ 30mcg/0.3ML 2 DTAP, HISTORIC VACCINE [...] TRIV. (FLUBLOCK TRIVALENT; 18Y+) (RIV3) 07/25/2015,06/04/2010 MENINGOCOCCAL ACWY (MCV4P) VAC IM 05/23/2008 MMR 05/17/2022(Deferred: - patient is immune),02/16/2020(Deferred: [...] place to sleep or slept in a chcf (including now)? Patient refused 05/14/2022 [place] Depression Scale Answer Date Recorded RETIRED: Total Score 0 06/23/2022 Last EPDS Self Harm Result Not on file 06/23 Comments No Sex and Gender Information Value Date Recorded Sex Assigned at Not on file Legal Sex Female 11:42 AM METER AND REGULATOR SHOP SUPERVISOR Gender Identity Not on file Sexual Orientation Not on file Last Filed Vital Signs Vital Sign Reading Time Taken Comments Blood Pressure 131/95 09/16/2023 3:00 PM METER AND REGULATOR SHOP SUPERVISOR Pulse 100 09/16/2023 3:04 PM METER AND REGULATOR SHOP SUPERVISOR Temperature 36.6 C (97.8 F) 09/16/2023 11:57 AM METER AND REGULATOR SHOP SUPERVISOR Respiratory Rate 20 09/16/2023 3:04 PM METER AND REGULATOR SHOP SUPERVISOR Oxygen Saturation 100% 09/16/2023 3:04 PM METER AND REGULATOR SHOP SUPERVISOR Inhaled Oxygen Concentration 21% 04/16/2023 1 1:20 AM CDT Weight 64 kg (141 lb) 04/15/2023 4:00 AM CDT Height 162.6 cm (5' 4) 04/03/2023 1:57 PM CDT Body Mass Index 24.2 04/03/2023 1:57 PM CDT Plan of Treatment Health Maintenance Due Date Last Done Comments PNEUMOCOCCAL VACCINE (2 of 2 - PPSV23) 2003 06/28/2002 HPV VACCINE (2 - 2-dose series) 11/20/2008 05/23/2008 PAP SMEAR 08/30/2022 08/30/2019 COVID-19 VACCINE ( season) 2024 06/23/2022, 03/12/2021, 02/18/2021 DEPRESSION SCREENING 07/13/2024 INFLUENZA VACCINE (Season Ended) 2025 04/02/2023, 06/23/2022, 08/30/2019, Additional history exists DTAP/TDAP/TD VACCINES (8 - Td or Tdap) 01/03/2030 01/04/2020, 05/23/2008, 02/07/2002, Additional history exists ZOSTER VACCINE (1 of 2) 2047 HEPATITIS B VACCINE Completed 06/01/2000, 03/10/2000, 10/04/1999 HIB VACCINE Completed 01/01/2001, 02/11, 10/04/1999, Additional history exists MENINGOCOCCAL GROUPS A/C/Y/W VACCINE Aged Out 05/23/2008 No longer eligible based on patient's age to complete this topic HEPATITIS C SCREENING Completed 03/18/2022, 020 HIV SCREENING Completed 03/18/2022, 01/04/2020 MENINGOCOCCAL (Group B) VACCINE SHARED DECISION-MAKING Aged Out No longer eligible based on patient's age to complete this topic Procedures Procedure Name Priority Date/Time Associated Diagnosis Comments HEPATITIS C ANTIBODY Routine 03/18/2022 1:59 PM CDT Supervision of high-risk of young multigravida HIV-1 HIV-2 ANTIBODY + HIV P24 AG PANEL Routine 03/18/2022 1:59 PM CDT Supervision of high-risk of young multigravida PAP THINPREP Routine 08/30/2019 2:06 PM METER AND REGULATOR SHOP SUPERVISOR High risk teen in first trimester from Last 3 Months or Most Recently Relevant to Health Maintenance Results * HIV-1 HIV-2 ANTIBODY + HIV P24 AG PANEL (03/18/2022 1:59 PM CDT) Pathologist [facility] HIV1/2 Ab + P24 Ag Non Reactive Non Reactive 03/18/2022 3:26 PM CDT [facility] Blood BLOOD SPECIMEN / Unknown Venipuncture / Unknown 03/18/2022 1:59 PM CDT 03/18/2022 2:12 PM CDT Narrative [facility] - 03/18/2022 3:26 PM CDT No Laboratory evidence of HIV infection. Sharon Beltran HOSPICE PLAN ADMINISTRATOR-AIRCRAFT TOOL MAKER LAB - CHEMISTRY ORDERAB LES Final Result [facility] [address] [place] [address] * HEPATITIS C ANTIBODY (03/18/2022 1:59 PM CDT) [facility] HCV Antibody Screen Non Reactive Non Reactive 03/18/2022 3:25 PM CDT [facility] Blood BLOOD SPECIMEN / Unknown Venipuncture / Unknown 03/18/2022 1:59 PM CDT 03/18/2022 2:12 PM CDT Narrative [facility] - 03/18/2022 3:25 PM CDT Non Reactive - Antibodies to Hepatitis C virus (HCV) were not detected, result does not exclude early acute HCV infection. Sharon Beltran HOSPICE PLAN ADMINISTRATOR-AIRCRAFT TOOL MAKER LAB - CHEMISTRY ORDERAB LES Final Result Performing Organization Address City/[facility]/ZIP Co de Phone Number [facility] [address] [place], [place] [id number] * PAP THINPREP (08/30/2019 2:06 PM METER AND REGULATOR SHOP SUPERVISOR) Diagnosis Comment 09/02/2019 11:08 AM METER AND REGULATOR SHOP SUPERVISOR [facility] ([facility]) Comment:NEGATIVE FOR INTRAEP ITHELIAL LESION OR MALIGNANCY. Specimen Adequacy Comment 020 11:08 AM METER AND REGULATOR SHOP SUPERVISOR [facility] ([facility]) Comment:Satisfactory for adriana luation. No endocervical component is identified. Performed by Comment 09/02/2019 11:08 AM METER AND REGULATOR SHOP SUPERVISOR [facility] ([facility]) Comment:Latoya Vasquez totechnologist Comment . 09/02/2019 11:08 AM METER AND REGULATOR SHOP SUPERVISOR [facility] ([facility]) Note Comment 09/02/2019 11:08 AM METER AND REGULATOR SHOP SUPERVISOR [facility] ([facility]) Comment: The Pap smear is a screening test designed to aid in the detection of premalignant and malignant conditions of the uterine cervix. It is not a diagnostic procedure and should not be used as the sole means of detecting cervical cancer. Both false-positive and false-negative reports do occur. Pathology/Cytolo gy ENTIRE ENDOCERVIX / Unknown Collection / Unknown 08/30/2019 2:06 PM METER AND REGULATOR SHOP SUPERVISOR 08/30/2019 2:32 PM METER AND REGULATOR SHOP SUPERVISOR Narrative [facility] ([facility]) - 09/02/2019 11:08 AM METER AND REGULATOR SHOP SUPERVISOR Performed at: [address] [place] [id number] Jewelry Designer: Diane Rodriguez MD, Phone: [phone] Specimen Comment: Source.............Endocervix Specimen Comment: No. of containers..01 ThinPrep Vial us Genevieve Locke MD LAB - PATHOLOGY/CYTOLOGY ORDER HERNANDEZ Final Result [facility] ([facility]) [address] [place] [address] from Last 3 Months or Most Recently Relevant to Health Maintenance Additional Health Concerns Infection Onset Date Last Indicated MRSA Hx Comment:Nasal; 04/01/2023 04/02/2023 Insurance [facility] Advance Directives * Full Code (Latest Code [...] 4:01 AM 02/17/2020 6:43 PM Care Teams Terminal Supervisor Relationship Specialty Start Date End Date None, Physician [address] [place] [address] PCP - General 04/01/23
--- OUTSIDE RECORDS SUMMARY | 2024-12-15 09:31 | XMS_ITS | Data Portability ---
Author Organization [place] [facility] [place] [facility] Address [address] [place] [address] Assessment No assessment recorded. Plan of Treatment Reminders Order Date Submit Date Provider Last Modified By Organization Details Last Modified Time Details Appointments None recorde d. Lab drug screen, body fluid 018 11/21/19 18 ronald Wiseman, [address], [place], [id number], 8 14:17:30 Referral None recorde d. Procedures [...] SNOMED-CT Code Diagnosis ICD10 Code Diagnosis Note [id number] MD Vianey [place]ts [address] [place] [id number] 11/20/2017 13:14:35 11/20/2017 13:32:48 Health examination of sub-group [id number] Z00.8 Health Concerns Section Related Observation LastModified by Organization Detai ls LastModified Time None Recorded Concern Status LastModified by Organization Details LastModified Time None Recorded Advance Directives Directive None Recorded Payers Encounter Date Sequence Insurance Name Policy Number Policy Headley Covered Member ID Headley Member ID Guarantor Name 11/20/2017 KYLE TORRES [id number] Fariba Acharya OBGyn Episode No OBEpisode recorded.
--- OUTSIDE RECORDS SUMMARY | 2024-12-15 09:31 | XMS_ITS | Encounter Summary ---
Author Organization [facility] Health Address [address] [place] [address] Care Team Providers Care Data Processing Equipment Repairer Name Role Phone None, Physician Primary Care Provider Unavailabl e Encounter Details Date Type Department Care Team (Late st Contact Info) Description 04/10/2023 [facility] Outpatient Visit [facility] Health Cancer Care [id number] [place] [phone] [place] Elaine [place] [id number] [place] [phone] Social History Tobacco Use Types Packs/Day [...] a chcf (including now)? Patient refused 05/14/2022 [place] Depression Scale Answer Date Recorded RETIRED: Total Score 0 06/23/2022 Last EPDS Self Harm Result Not on file 06/23 Comments No Sex and Gender Information Value Date Recorded Sex Assigned at Not on file Legal Sex Female 11:42 AM OUTSIDE BARREL LATHE OPERATOR Gender Identity Not on file Sexual Orientation Not on file documented as of this encounter Functional Status * Is person deaf or have serious hearing difficulty? Answer Date of Assessment Author No 04/01/2023 5:45 PM Macie Crawford RN * Is person blind or have serious difficulty seeing? Answer Date of Assessment Author No 04/01/2023 5:45 PM Macie Crawford RN * Does person have serious difficulty walking/climbing stairs? Answer Date of Assessment Author No 04/01/2023 5:45 PM Macie Crawford RN * Does person have difficulty dressing/bathing? Answer Date of Assessment Author No 04/01/2023 5:45 PM Macie Crawford RN * Does person have difficulty doing errands alone? Answer Date of Assessment Author No 04/01/2023 5:45 PM Macie Crawford RN documented as of this encounter Mental Status * Does person have difficulty concentrating/remembering/making decisions? Answer Entry Date Author No 04/01/2023 5:45 PM CDT Macie Reed RN documented in this encounter Plan of Treatment Not on file documented as of this encounter Visit Diagnoses Not on filedocumented in this encounter Additional Health Concerns Infection Onset Date Last Indicated Resolved Time MRSA Hx Comment:Nasal; 04/01/2023 04/02/2023 documented as of this encounter Care Teams Data Processing Equipment Repairer Relationship Specialty Start Date End Date None, Physician [address] [place] [address] PCP - General 04/01/23 documented as of this encounter
[2024-12-15 09:32] LABS: BEDSIDEPREGUCG Negative (Negative); EDUAAPPEAR Clear; EDUABILI Negative (Negative); EDUABLOOD Trace (Negative); EDUACOLOR1 Light/Pale; EDUAGLUCOSE 2+ (Negative); EDUAKETONE Negative (Negative); EDUALEUKO Negative (Negative); EDUANITRATE Negative (Negative); EDUAPROTEIN 2+ (Negative); EDUAUROBILI 0.2
[2024-12-15] MEDS: KETOROLAC 30 MG/ML VIAL (*BKC) IM (09:50)
== END 2024-12-15 10:19 | disposition home or self-care (01) ==
PROVIDERS: Emergency Provider Nurse Practitioner Family; PCP Family Medicine
DX: M25.552 Pain in left hip (principal); E10.9 Type 1 diabetes mellitus without complications
CPT/HCPCS: 73502; 81003; 81025; 99213; G0463; J1885

== ENCOUNTER 2025-03-06 08:54 | Emergency (ER) | payer OTHER, SELFPAY ==
--- OUTSIDE RECORDS SUMMARY | 2012-07-28 12:20 | XMS_ITS | Continuity of Care Document ---
Author Organization [facility] Address [address] [place] [address] Phone Care Team Providers Care Overnight Caregiver Name Role Phone Abbi GARCÍA MS,Aga SAVAGE Unavailable Unavailable Allergies, Adverse Reactions, Alerts Substance Reaction Status Criticality No Known allergies Medications Medication Instructions Dosage Effective Dates (start - stop) Status Comments INSULIN SYRINGE (unknown strength) Not Available - Active Depo-Provera 150 mg/mL IM Syringe IM Q 12-13 wks x 4 injections - No Longer Active Procedures Procedure Date Urine Test w/exam Medroxyprogester acetate inj OFFICE/OUTPATIENT VISIT, NEW Medroxyprogester acetate inj Medroxyprogester acetate inj Medroxyprogester acetate inj Advance Directives Directive Yes / No Effective Date File Name Resuscitation Not Answered N/A N/A Life Support Not Answered N/A N/A Intubation Not Answered N/A N/A Antibiotics Not Answered N/A N/A IV Fluid Support Not Answered N/A N/A Tube Feed Not Answered N/A N/A Other Directive N/A N/A WARNING:The information contained in this section is historical and is provided for information only and does not constitute a legal document or any assurance that the information is still accurate. Please verify the information with the metz of the legal document before using it for clinical purposes. Encounters Encounter Description Practice Location Reason(s) For Visit Diagnoses Date Provider Providers Copied on Encounter OFFICE/OUTPA TIENT VISIT, NEW [facility], [address], [place], [address], [place] tel:[phone] ZPeter examination or test, negative resultContrac eptive, Other Surveillance 3 Abbi Yung. [address], [address], [place], [address], [place]. tel:[phone] Family History Family Member Type Diagnosis Age At Onset No Information Immunizations Vaccine Date Status Comments Varicella administered Source: New Imm unization Record Tetanus administered Source: New Imm unization Record MMR administered Source: New Imm unization Record Payers Payer name Insurance type Covered constitution party ID Authoriza tion(s) No Information Social History Type Description Quantity Date Captured Comments Alcohol Use Details No Caffeine Use Details Unknown Tobacco Use Status No Information Smoking Status No Information Sex Female Vital Signs Date / Time: Height Weight BMI Pulse Rate Blood Pressure Temperature Respiratory Rate Body Surface Area Head Circumference Head Circ. Percentile Wt./Víctor. Percentile BMI percentile Pulse Ox Inhaled Ox 5:59 PM 63.00 in 132.00 lbs 23.3 8 kg/m eter (2) 120/80 mm[Hg] Chief Complaint And Reason For Visit No Information Reason For Referral Reason For Referral No Information History Of Present Illness Encounter Date Complaint History Of Prese nt Illness No Information Functional Status Date Functional Assessmen t No Information Instructions Date Instruction Additional Infor mation No Information Assessments Type Assessment Date No Information Patient Care Teams Name Effective Dates (start - stop) Status Members No Information
--- OUTSIDE RECORDS SUMMARY | 2012-07-28 12:20 | XMS_ITS | Continuity of Care Document ---
Author Organization [facility] Address [address] [place] [address] Phone Care Team Providers Care Entry Level Electrician Name Role Phone Abbi GARCÍA MS,Aga SAVAGE [...] OFFICE/OUTPA TIENT VISIT, NEW [facility], [address], [place], [address], [place] tel:[phone] ZPeter examination or test, negative resultContrac eptive, Other Surveillance 3 Abbi Yung. [address], [address], [place], [address], [place]. tel:[phone] Family History Family Member Type Diagnosis Age At Onset No Information Immunizations Vaccine Date Status Comments Varicella administered Source: New Imm unization Record Tetanus administered Source: New Imm unization Record MMR administered Source: New Imm unization Record Payers Payer name Insurance type Covered republican ID Authoriza tion(s) No Information Social History [...]
--- NOTE | 2025-03-06 08:57 | ED_ITS ---
HPI - Extremity Injury (Lower) General Chief Complaint: Extremity Injury, Lower Stated Complaint: hip pain Source: patient and RN notes reviewed Mode of arrival: ambulatory Limitations: no limitations History of Present Illness HPI Narrative: Patient is a 29-year-old female who presents to the [facility] with complaints of left lateral hip pain for several months. She reports the pain is sharp and feels as though she is having a muscle spasm. Has been taking naproxen and tramadol. Denies any known injury. Denies any URI symptoms. Denies any loss of bowel or bladder. Patient states that she was seen here in December with the same complaint, which is when she was first prescribed Tramadol, which appears to be the only medication that helps the pain. She has been taking her mother in law's prescription since. She was seen at [facility] on 02/21 and prescribed Naproxen, which she states does not help. Patient has an appt with an orthopedist on March 16. She states that she was told she had a possible fracture fragment in the left hip. She is a type 1 diabetic. Related Data Home Medications ?Medication ?Instructions ?Recorded ?Confirmed ?Last Taken ?Type insulin glargine 100 unit/mL (3 20 unit subcut DIRE CTED 09/03/21 09/03/21 Unknown History mL) subcutaneous pen (Basaglar KwikPen U-100 Insulin) insulin NPH isoph U-100 human 100 unit subcut 03/27/24 Unknown History unit/mL subcutaneous suspension (Humulin N NPH U-100 Insulin (isophane susp)) Allergies Allergy/AdvReac Type Severity Reaction Status Date / Time latex Allergy Mild RASH Verified 03/06/25 09:16 sulfamethoxazole (From Allergy Hives Verified 03/06/25 09:16 Bactrim) trimethoprim (From Bactrim) Allergy Hives Verified 03/06/25 09:16 Review of Systems Review of Systems: CONSTITUTIONAL: Denies fever, chills, or sweats. EYES: Denies visual changes, redness, or discharge. ENT: Denies otalgia and sore throat CARDIOVASCULAR: Denies chest pain, palpitations, or edema. RESPIRATORY: Denies cough or dyspnea. GASTROINTESTINAL: Denies abdominal pain, nausea, vomiting, or diarrhea. GENITOURINARY: Denies dysuria or hematuria. SKIN: Denies rash or itching. MUSCULOSKELETAL: Reports left hip pain. NEUROLOGIC: Denies headache, numbness, or weakness. Pertinent positives per HPI. PMFSH Comments At the time of my signature, I reviewed and agree with the nursing past medical, surgical, social, and family history. There is no relevant family history pertinent to the patient complaint. Exam Narrative: GENERAL: This is a well-nourished, well-developed patient, in no apparent distress. HEAD: normocephalic, atraumatic. EYES: PERRL. Sclera clear/white. Vision is grossly intact. EARS: External ears normal, auditory canals clear and without drainage, TMs normal without perforation. Hearing grossly intact. NOSE: External nose normal with no obvious nasal discharge, nares without redness, no rhinorrhea. THROAT: Mucous membranes moist, posterior pharynx clear. NECK: Neck supple, non-tender without lymphadenopathy, masses or thyromegaly. CARDIOVASCULAR: Regular rate and rhythm without murmurs, gallops, or rubs. RESPIRATORY: Clear to auscultation. Breath sounds equal bilaterally. No wheezes, rales, or rhonchi. GASTROINTESTINAL: Abdomen soft, non-tender, nondistended. Bowel sounds are active. No hepato-splenomegaly, or palpable masses. No guarding. SKIN: warm, intact with no suspicious lesions or rash, good texture and turgor. NEURO: awake, alert, and oriented to person, place and time. There were no obvious focal neurologic abnormalities. Course Course Level of Care: Express Care Visit Vital Signs Vital signs: Vital Signs Temperature 97.2 F L 03/06/25 09:01 Pulse Rate 99 03/06/25 09:01 Respiratory Rate 16 03/06/25 09:01 Blood Pressure 118/81 03/06/25 09:01 Pulse Oximetry 99 03/06/25 09:01 Oxygen Delivery Room Air 03/06/25 09:01 Temperature 97.2 F L 03/06/25 09:01 Pulse Rate 99 03/06/25 09:01 Respiratory Rate 16 03/06/25 09:01 Blood Pressure 118/81 03/06/25 09:01 Pulse Oximetry 99 03/06/25 09:01 Oxygen Delivery Room Air 03/06/25 09:01 Reviewed MDM - Extremity Injury (Lower) MDM Narrative Medical decision making narrative: Use the RICE method at home. May take ibuprofen and/or Tylenol if needed in addition to prescribed Flexeril. Go to your follow-up with orthopedist on the 4th for follow-up. Differential Diagnosis Differential diagnosis: Likely other (hip sprain, arthritis, contusion of hip) Imaging Data Attestation: I personally reviewed and interpreted this imaging study as follows: Critical Care Time Critical Care Time Critical Care Time: No Discharge Plan Discharge Clinical Impression: Left hip pain Patient Disposition: Home Condition: Stable Instructions: P.R.I.C.E. Treatment (ED), Hip Pain (ED) Additional Instructions: Use the RICE method at home. May take ibuprofen and/or Tylenol if needed in addition to prescribed Flexeril. Go to your follow-up with orthopedist on the 4th for follow-up. Patient Language: Ecuadorean Prescriptions: New cyclobenzaprine 10 mg tablet 10 mg PO TID PRN (Reason: muscle spasm) Qty: 30 0RF No Action albuterol sulfate 90 mcg/actuation HFA aerosol inhaler 2 inh inhalation QID PRN (Reason: shortness of breath or wheezing) Qty: 8.5 0RF Basaglar KwikPen U-100 Insulin 100 unit/mL (3 mL) insulin pen 20 unit SUBCUT DIRECTED Humulin N NPH U-100 Insulin 100 unit/mL suspension SUBCUT tramadol 50 mg tablet 50 mg PO Q6H PRN (Reason: pain) 3 Days Qty: 12 0RF baclofen 10 mg tablet 10 mg PO TID PRN (Reason: muscle spasm) 7 Days Qty: 21 0RF Follow-up/Referrals: Kurt,Renzo Pathak MD [Primary Care Provider, Unknown] Time of Disposition: 09:18
[2025-03-06 09:01] VITALS: BP 118/81; PULSE 99; RESP 16; TEMP 36.2; O2SAT 99
--- OUTSIDE RECORDS SUMMARY | 2025-03-06 09:20 | XMS_ITS | Encounter Summary ---
Author Organization [facility] Healthcare Address [address] [place] [address] Care Team Providers Care Wood Gluer Name Role Phone Unknown, Notinfile Primary Care Provider Unavail able Encounter Details Date Type Department Care Team (Late st Contact Info) Description 02/10/2025 Telephone [facility] Orthopedic Trauma [address] [facility] 4th Floor [address] [place] [address] Bee Carvajal, RN Social History Tobacco Use Types Packs/Day Years Used Date Smoking Tobacco: Unknown PRAPARE - Transportation Answer Date Re corded [...] making you feel afraid or unsafe? Denies 12/28/2024 Comments Unknown Sex and Gender Information Value Date Recorded Sex Assigned at Not on file Legal Sex Female 7:00 PM CDT Gender Identity Not on file Sexual Orientation Not on file documented as of this encounter Miscellaneous Notes * Telephone Encounter - Bee Carvajal RN - 02/10/2025 11:21 AM CDT Appt reminder call for 02/16/25 @[facility]. Bee Carvajal RN documented in this encounter Plan of Treatment Not on file documented as of this encounter Visit Diagnoses Not on filedocumented in this encounter Care Teams Wood Gluer Relationship Specialty Start Date End Date Unknown, Notinfile PCP - General 12/12/24 documented as of this encounter
--- OUTSIDE RECORDS SUMMARY | 2025-03-06 09:20 | XMS_ITS | Clinical Summary ---
Author Organization [facility] Address [address] [place] [address] Care Team Providers Care Lumber Yard Worker Name Role Phone Unknown, Notinfile Primary Care Provider Unavail able Allergies Active Allergy Reactions Criticality Noted Date Comments Adhesive Urticaria Medium 05/19/2022 Latex Hives,Rash Medium 08/27/2016 Sulfamethoxazole-Trimethoprim Hives,Unknown,Urticaria Medi um 06/05/2019 Medications ferrous sulfate 325 mg (65 mg of elemental iron) tabletIndicati ons:Iron Deficiency Anemia Take 1 tablet (325 mg [...] (150 mg total) by mouth daily Active blood-glucose meter kit 1 each once for 1 dose 1 kit 4 Active lancing device with lancets kit 1 each 4 (four) times a day before meals and nightly 1 kit 1 4 Active blood glucose diagnostic strip 100 each by other route as directed 100 each 1 4 Active doxycycline (VIBRAMYCIN) 100 mg capsuleIndicat ions:Skin/Soft Tissue Infection Take 1 tablet/capsule (100 mg total) by mouth 2 (two) times a day 20 capsule 4 Active Additional Information Patient not taking.Reported on 02/16/2025 insulin glargine 100 unit/mL (3 mL) pen for injection Inject 30 Units under the skin 2 (two) times a day 3 mL 4 Active insulin lispro (HumaLOG, ADMELOG) 100 unit/mL [...] for Sliding Scale Insulin Instructions. 15 mL 4 Active cyclobenzaprin e (FLEXERIL) 10 mg tablet Take 1 tablet (10 mg total) by mouth 2 (two) times a day as needed for muscle spasms 20 tablet 5 Active Additional Information Patient not taking.Reported on 02/16/2025 lidocaine (LIDODERM) 5 % Apply 1 patch topically daily for 12 hours Remove after 12 hours (need 12 hour patch free period). 10 patch 5 Active Additional Information Patient not taking.Reported on 02/16/2025 meloxicam (MOBIC) 7.5 mg tablet Take 1 tablet (7.5 mg total) by mouth daily 30 tablet 11 5 02/17/20 26 Active ketorolac (TORADOL) 10 mg tablet Take 1 tablet (10 mg total) by mouth 4 (four) times a day as needed for pain Take with food. 30 tablet 5 02/17/20 25 Discontin ued(Thera py completed ) Active Problems Problem Noted Date Diagnosed Date [...] Encounters Date Type Department Care Team Description 02/27/2025 6:40 PM CDT - 02/27/2025 10:48 PM CDT Emergency [facility] Emergency Department [address] [place] [phone] Discharge Disposition: Left without being seen 02/27/2025 Patient Self-Triage [facility] HealthCare/ Physicians [address] [place] [address] Mychart, Generic Provider 02/16/2025 2:00 PM CDT Office Visit [facility] Orth[facility] Sports [address] [place] [address] Outpatient [facility] 4th Floor [address] [place] [phone] Greater trochanteric bursitis of left hip (Primary Dx); Left hip pain 02/10/2025 Telephone [facility] Orthopedic Trauma [address] [place] [address] 4th Floor [address] [place] [phone] Bee Cavrajal RN 12/29/2024 Results Follow-Up [facility] Emergency Department [address] [place] [phone] Ankur Castellanos RN POCT glucose 12/28/2024 5:08 PM CDT - 12/28/2024 7:19 PM CDT Emergency [facility] Emergency Department [address] [place] [phone] Maranda Hong MD Type 1 diabetes mellitus with hyperglycemia (HCC) (Primary Dx); Left hip pain Discharge Disposition: Discharge to home or self care from Last 3 Months Immunizations Immunization Administration [...] History Date Comments Type 1 diabetes mellitus Preeclampsia Nephropathy Chronic hypertension Kidney disease, chronic, sta ge I (normal EGFR) Anxiety Depression Hx of seizure disorder Last seiz ure in elementary school. No meds currently Chlamydia Social History Tobacco Use Types Packs/Day Years Used Date Smoking Tobacco: Every Day Vaping Tobacco Cessation:Ready to Q uit: Not Asked; Counseling Given: Not Answered Hunger Vital Sign Answer Date Recorded Within the past 12 months, y ou worried that your food would run out before you got the money to buy more. Never true 02/17/20 25 Within the past 12 months, t he food you bought just didn't last and you didn't have money to get more. Never true 02/16/2025 PRAPARE - Transportation Answer Date Re corded [...] making you feel afraid or unsafe? Denies 02/27/2025 Comments No Sex and Gender Information Value [...] Epidur al Livin g Complications:Pre eclampsia Delivery Location:[facility] 020 34w 3d 1.99 kg (4 lb 6.2 oz) F Vag-S pont Epidur al Complications:Pre eclampsia Delivery Location:[facility]. 021 IAB 8w0 d Last Filed Vital Signs Vital Sign Reading Time Taken Comments Blood Pressure 124/89 02/27/2025 6:50 PM CDT Pulse 99 02/27/2025 6:50 PM CDT Temperature 36.6 C (97.9 F) 02/27/2025 6:50 PM CDT Respiratory Rate 20 02/27/2025 6:50 PM CDT Oxygen Saturation 99% 02/27/2025 6:50 PM CDT Inhaled Oxygen Concentration - - Weight 59 kg (130 lb) 02/27/2025 6:50 PM CDT Height 162 cm (5' 3.78) 02/27/2025 6:50 PM CDT Body Mass Index 22.47 02/27/2025 6:50 PM CDT Plan of Treatment Health Maintenance Due Date Last Done Comments Albumin Creatinine Ratio, Urine 1997 Depression Screening 1997 Foot Exam 1997 Hepatitis C Screening 1997 Pneumococcal vaccine <65 (2 of 2 - PPSV23, PCV20, or PCV21) 2003 06/28/2002 Dilated Eye Exam 2007 Lipid Panel 2007 HPV Vaccines (2 - 2-dose series) 11/20/2008 05/23/20 08 Regular Well Visit/Exam 18-64 2015 Cervical Cancer Screening 08/30/2020 08/30/2019 Hemoglobin A1C 10/27/2023 04/27/2023, 03/14, 03/27/2023, Additional history exists Covid-19 Vaccine (2023-2 5 season) 2024 06/23/2022, 03/12/2021, 02/18/2021 TSH Level 09/30/2024 10/01/2023, 04/27/2023 Influenza Vaccine (#1) 2025 , 06/23/2022, 08/30/2019, Additional history exists eGFR 05/14/2025 05/14/2024, 10/11, 04/27/2023, Additional history exists DTaP/Tdap/Td Vaccine (8 - Td or Tdap) 01/03/2030 01/04/2020, 05/23/2008, 02/07/2002, Additional history exists Hepatitis B Screening Completed 06/01/2000 , 03/10/2000, 10/04/1999 Varicella Vaccines Completed 05/23/2008, 0 02/07/2002, 06/01/2000, Additional history exists Procedures Procedure Name Priority Date/Time Associated Diagnosis Comments POCT GLUCOSE DEVICE Routine 12/28/2024 6:22 PM CDT XR HIP LEFT 2 OR 3 VIEWS ED 12/28/2024 5:21 PM CDT POCT KETONE, BLOOD Routine 12/28/2024 4: 58 PM CDT POCT GLUCOSE DEVICE Routine 12/28/2024 4:51 PM CDT EGFR STAT 05/14/2024 3:26 PM CDT HEMOGLOBIN A1C Routine Gen Lab 04/27/2023 7:18 AM CDT TSH Routine Gen Lab 04/27/2023 7:18 AM CDT from Last 3 Months or Most Recently Relevant to Health Maintenance Results * (ABNORMAL) POCT glucose (12/28/2024 6:22 PM CDT) Glucose, POC 408(H) 70 - 199 mg/dL Comment:Glu2: RN/MD Notified Glucose comment 1 Glu2: RN/MD Notified [facility] Blood 12/28/2024 6:22 PM CDT 12/28/2024 6:22 PM CDT us Maranda Hong MD LAB POCT ORDERABLES - DE VICE Final Result [facility] Department [place] [address] * XR Hip Left 2 or 3 Views (12/28/2024 5:21 PM CDT) Anatomical Region Laterality Modality Lower Extremities, Hip, Pelvis Left C omputed Radiography 12/28/2024 5:27 PM CDT Impressions 12/28/2024 5:31 PM CDT No priors available for comparison. Joint spaces are intact. Alignment is normal. No acute fracture or dislocation within the pelvis or left hip. Dictated by: Amy Ma MD, PhD The radiology attending physician has personally reviewed this study, and had reviewed and/or edited this written report and agrees with it. Electronically signed by: Jakob Beaver M.D. Narrative 12/28/2024 5:31 PM CDT EXAMINATION: XR HIP LEFT 2 OR 3 VIEWS HISTORY: 29-year-old with left hip pain Procedure Note Jakob Beaver MD - 12/28/2024 EXAMINATION: XR HIP LEFT 2 OR 3 VIEWS HISTORY: 29-year-old with left hip pain IMPRESSION: No priors available for comparison. Joint spaces are intact. Alignment is normal. No acute fracture or dislocation within the pelvis or left hip. Dictated by: Amy Ma MD, PhD The radiology attending physician has personally reviewed this study, and had reviewed and/or edited this written report and agrees with it. Electronically signed by: Jakob Beaver M.D. us Maranda Hong MD IMG XR PROCEDURES Final Result * POCT ketone, blood (12/28/2024 4:58 PM CDT) Beta-Hydroxybut yrate, POC 0.1 0.0 - 0.5 mmol/L Blood 12/28/2024 4:58 PM CDT 12/28/2024 4:58 PM CDT us Notinfile Unknown LAB POCT ORDERABLES - DEVICE F inal Result Performing Organization Address City/[facility] [address]/ZIP Co de Phone Number [facility] Department of [employer] [place] [place] [address] * (ABNORMAL) POCT glucose (12/28/2024 4:51 PM CDT) Glucose, POC 463(C) 70 - 199 mg/dL Comment:Glu2: RN/MD Notified Glucose comment 1 Glu2: RN/MD Notified [facility] Blood 12/28/2024 4:51 PM CDT 12/28/2024 4:51 PM CDT us Notinfile Unknown LAB POCT ORDERABLES - DEVICE F inal Result Performing Organization Address City/[facility] [address]/ZIP Co de Phone Number [facility] Department [place] [employer] [place] [place] [address] * eGFR (05/14/2024 3:26 PM CDT) eGFR [...] 3:26 PM CDT 05/14/2024 3:32 PM CDT us Mariano Nunez MD LAB BLOOD ORDERABLES Final Result [facility] [address] [facility] Department [place] [employer] [place] [place] [address] * TSH (04/27/2023 7:18 AM CDT) Thyroid Stimulating Hormone 2.44 0.30 - 4.20 mcIUnit/mL [facility] Blood 04/27/2023 7:18 AM CDT 04/27/2023 10:06 AM CDT Rhoda Tapia MD LAB BLOOD ORDERABLES Final Resu lt [facility] Department [place] [address] * (ABNORMAL) Hemoglobin A1c (04/27/2023 7:18 AM CDT) Hgb A1C 8.8(H) 4.0 - 5.6 % [facility] Estimated Average Glucose 206 mg/dL [facility] Comment: The ADA recommends reporting an estimated [...] MD LAB BLOOD ORDERABLES Final Resu lt [facility] Department [place] [address] from Last 3 Months or Most Recently Relevant to Health Maintenance Insurance [facility] * Guarantor: Fariba Cartwright Account Type Relation to Patient Date of Phone Billing Address Personal/Family Self 1995 [facility] [place] [address] [facility] Advance Directives For more information, please contact: [phone] * Full Code (Latest Code Status on File) Date Activated Date Inactivated Comments 03/27/2023 6:22 AM 03/31/2023 6:58 PM Care Teams Lumber Yard Worker Relationship Specialty Start Date End Date Unknown, Notinfile PCP - General 12/12/24
--- OUTSIDE RECORDS SUMMARY | 2025-03-06 09:20 | XMS_ITS | Encounter Summary ---
Author Organization [facility] Health Address [address] [place] [address] Care Team Providers Care Counter Help Name Role Phone None, Physician Primary Care Provider Unavailabl e Encounter Details Date Type Department Care Team (Late st Contact Info) Description 04/10/2023 [facility] Outpatient Visit [facility] Health Cancer Care [id number] [place] [phone] [place] Elaine [place] [id number] [place] [phone] Social History Tobacco Use Types Packs/Day [...] place to sleep or slept in a snf (including now)? 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
--- OUTSIDE RECORDS SUMMARY | 2025-03-06 09:20 | XMS_ITS | Clinical Summary ---
Author Organization [facility] Address [address] [address] Care Team Providers Care Cartographic Technician Name Role Phone None, Physician Primary Care Provider Unavailabl e Source Comments [facility],non-owned Affiliates and Associated Physician Practices is amultiple site organization consisting of ambulatory clinics and hospital sitesin [place], [place], [place] and [place]. This disclosure is being madepursuant to the Care Everywhere program and may not contain all information available regarding this patient. Last updated 18.[facility] Allergies Active Allergy Reactions Criticality Noted Date [...] migh t be different from the original. [place] form completed. Diapers given. 12/29/2019 [...] 08/31/2019 Immunizations Immunization Administration Dates Next Due LiftDNA BIVALENT 12Y+ 30mcg/0.3ML 2 DTAP, HISTORIC VACCINE [...] place to sleep or slept in a penitentiary (including now)? Patient refused 05/14/2022 [place] Depression Scale Answer Date Recorded RETIRED: Total Score 0 06/23/2022 Last EPDS Self Harm Result Not on file 06/23 Comments No Sex and Gender Information Value Date Recorded Sex Assigned at Not on file Legal Sex Female 11:42 AM SENIOR SSIS DEVELOPER Gender Identity Not on file Sexual Orientation Not on file Last Filed Vital Signs Vital Sign Reading Time Taken Comments Blood Pressure 131/95 09/16/2023 3:00 PM SENIOR SSIS DEVELOPER Pulse 100 09/16/2023 3:04 PM SENIOR SSIS DEVELOPER Temperature 36.6 C (97.8 F) 09/16/2023 11:57 AM SENIOR SSIS DEVELOPER Respiratory Rate 20 09/16/2023 3:04 PM SENIOR SSIS DEVELOPER Oxygen Saturation 100% 09/16/2023 3:04 PM SENIOR SSIS DEVELOPER Inhaled Oxygen Concentration 21% 04/16/2023 1 1:20 AM CDT Weight 64 kg (141 lb) 04/15/2023 4:00 AM CDT Height 162.6 cm (5' 4) 04/03/2023 1:57 PM CDT Body Mass Index 24.2 04/03/2023 1:57 PM CDT Plan of Treatment Health Maintenance Due Date Last Done Comments PNEUMOCOCCAL VACCINE (2 of 2 - PPSV23, PCV20, or PCV21) 2003 06/28/2002 HPV VACCINE (2 - 2-dose series) 11/20/2008 05/23/2008 PAP SMEAR 08/30/2022 08/30/2019 COVID-19 VACCINE ( season) 2024 06/23/2022, 03/12/2021, 02/18/2021 DEPRESSION SCREENING 07/13/2024 INFLUENZA VACCINE (#1) 2025 3, 06/23/2022, 08/30/2019, Additional history exists DTAP/TDAP/TD VACCINES [...] multigravida PAP THINPREP Routine 08/30/2019 2:06 PM SENIOR SSIS DEVELOPER High risk teen in first trimester from Last 3 Months or Most Recently Relevant to Health Maintenance Results * HIV-1 HIV-2 ANTIBODY + HIV P24 AG PANEL (03/18/2022 1:59 PM CDT) HIV1/2 Ab + P24 Ag Non Reactive Non Reactive 03/18/2022 3:26 PM CDT [facility] Blood BLOOD SPECIMEN / Unknown Venipuncture / Unknown 03/18/2022 1:59 PM CDT 03/18/2022 2:12 PM CDT Narrative [facility] - 03/18/2022 3:26 PM CDT No Laboratory evidence of HIV infection. Sharon Beltran FLY RAISER LOCKSTITCH-FLOOR MANAGER LAB - CHEMISTRY ORDERAB LES Final Result Performing Organization Address City/[facility]/ZIP Co de Phone Number [facility] [address] [place] [address] * HEPATITIS C ANTIBODY (03/18/2022 1:59 PM CDT) Pathologist [facility] HCV Antibody Screen Non Reactive Non Reactive 03/18/2022 3:25 PM CDT [facility] Blood BLOOD SPECIMEN / Unknown Venipuncture / Unknown 03/18/2022 1:59 PM CDT 03/18/2022 2:12 PM CDT Narrative [facility] - 03/18/2022 3:25 PM CDT Non Reactive - Antibodies to Hepatitis C virus (HCV) were not detected, result does not exclude early acute HCV infection. us Sharon Beltran FLY RAISER LOCKSTITCH-FLOOR MANAGER LAB - CHEMISTRY ORDERAB LES Final Result Performing Organization Address City/[facility]/ZIP Co de Phone Number [facility] [address] [place], [place] [id number] [phone] * PAP THINPREP (08/30/2019 2:06 PM SENIOR SSIS DEVELOPER) Diagnosis Comment 09/02/2019 11:08 AM SENIOR SSIS DEVELOPER [facility] ([facility]) Comment:NEGATIVE FOR INTRAEP ITHELIAL LESION OR MALIGNANCY. Specimen Adequacy Comment 020 11:08 AM SENIOR SSIS DEVELOPER [facility] ([facility]) Comment:Satisfactory for adriana luation. No endocervical component is identified. Performed by Comment 09/02/2019 11:08 AM SENIOR SSIS DEVELOPER [facility] ([facility]) Comment:Latoya Vasquez totechnologist Comment . 09/02/2019 11:08 AM SENIOR SSIS DEVELOPER [facility] ([facility]) Note Comment 09/02/2019 11:08 AM SENIOR SSIS DEVELOPER [facility] ([facility]) Comment: The Pap smear is a screening test designed to aid in the detection of premalignant and malignant conditions of the uterine cervix. It is not a diagnostic procedure and should not be used as the sole means of detecting cervical cancer. Both false-positive and false-negative reports do occur. Pathology/Cytolo gy ENTIRE ENDOCERVIX / Unknown Collection / Unknown 08/30/2019 2:06 PM SENIOR SSIS DEVELOPER 08/30/2019 2:32 PM SENIOR SSIS DEVELOPER Narrative [facility] ([facility]) - 09/02/2019 11:08 AM SENIOR SSIS DEVELOPER Performed at: - [address] [id number] [place] Cleaner: Diane Rodriguez MD, Phone: [phone] Specimen Comment: Source.............Endocervix Specimen Comment: No. of containers..01 ThinPrep Vial us Genevieve Locke MD LAB - PATHOLOGY/CYTOLOGY ORDER HERNANDEZ Final Result [facility] ([facility]) [address] [place] [address] from Last 3 Months or Most Recently Relevant to Health Maintenance Additional Health Concerns Infection Onset Date Last Indicated MRSA Hx Comment:Nasal; 04/01/2023 04/02/2023 Insurance [facility] Advance Directives * Full Code (Latest [...] 4:01 AM 02/17/2020 6:43 PM Care Teams Cartographic Technician Relationship Specialty Start Date End Date None, Physician [address] [place] [address] PCP - General 04/01/23
== END 2025-03-06 09:20 | disposition home or self-care (01) ==
PROVIDERS: Emergency Provider Nurse Practitioner; PCP Family Medicine
DX: M25.552 Pain in left hip (principal); E10.9 Type 1 diabetes mellitus without complications; Z79.4 Long term (current) use of insulin
CPT/HCPCS: 99213; G0463

== ENCOUNTER 2025-05-23 09:05 | Emergency (ER) | payer OTHER, SELFPAY ==
--- NOTE | 2025-05-23 09:08 | ED_ITS ---
HPI - URI/Sore Throat General Chief Complaint: Upper Respiratory Infection Stated Complaint: URI Time Seen by Provider: 05/23/25 09:08 Source: patient Mode of arrival: ambulatory Limitations: no limitations History of Present Illness HPI Narrative: Patient is a 30-year-old female who presents with cough, congestion, sinus pressure, sore throat and shortness breath with exertion since yesterday. Patient has history of asthma and has not had albuterol inhaler in some time. Denies any fever, chills, nausea, vomiting, diarrhea. To take Zyrtec this morning. Patient is newly roughly 5 weeks. Has not been to OB yet. This will be patient's 4th child Related Data Home Medications ?Medication ?Instructions ?Recorded ?Confirmed ?Last Taken ?Type insulin glargine 100 unit/mL (3 20 unit subcut DIRE CTED 09/03/21 05/23/25 Unknown History mL) subcutaneous pen (Basaglar KwikPen U-100 Insulin) insulin NPH isoph U-100 human 100 unit subcut 03/27/24 Unknown History unit/mL subcutaneous suspension (Humulin N NPH U-100 Insulin (isophane susp)) Allergies Allergy/AdvReac Type Severity Reaction Status Date / Time latex Allergy Mild RASH Verified 05/23/25 09:37 sulfamethoxazole (From Allergy Hives Verified 05/23/25 09:37 Bactrim) trimethoprim (From Bactrim) Allergy Hives Verified 05/23/25 09:37 Review of Systems Review of Systems: All systems reviewed & are unremarkable except as noted in HPI and below Constitutional: Constitutional: Denies chills, Denies fatigue, Denies fever(s), Reports headache(s), Denies malaise and Denies weakness Eyes: Eyes: Denies blurry vision, Denies itchy eyes and Denies loss of vision ENT: Denies otalgia, Reports headache(s), Reports nasal congestion, Denies sinus pain, Reports sinus pressure and Reports sore throat Cardiovascular: Cardiovascular: Denies chest pain, Denies irregular heart rhythm and Denies dyspnea Respiratory: Respiratory: Reports cough and Denies dyspnea Gastrointestinal: Gastrointestinal: Denies abdominal pain, Denies diarrhea, Denies nausea and Denies vomiting Musculoskeletal: Musculoskeletal: Denies back pain, Denies myalgias and Denies arthralgias Integumentary/Breasts: Skin/Breast: Denies pruritus and Denies rash Neurologic: Reports headache(s), Denies loss of vision and Denies weakness Psychiatric: Psychiatric: Reports no additional psychiatric complaints Endocrine: Endocrine: Denies fatigue Allergic/Immunologic: Allergic/Immunologic: Denies itchy eyes PMFSH Comments At time of signature, agree with nursing past medical, surgical, social and family history. There is no relevant family history pertinent to the presenting complaint. Exam Const: General: cooperative, healthy appearing, comfortable, no acute distress and well nourished Nutritional Appearance: well nourished Orientation/co nsciousness: patient oriented x3 Limitations: no limitations HENMT: Head: normal to inspection, normocephalic and atraumatic Ears: hearing grossly normal bilaterally, external ears normal, TM's normal bilaterally, EAC's normal and no periauricular adenopathy Face/Nose/Sinus: Normal external nose present, Abnormal mucous membranes and turbinates present erythematous bilateral and diffuse, normal facial exam, sinuses nontender and face symmetric Face and sinus: normal facial exam, sinuses nontender and face symmetric Mouth: Yes Normal oral and palatal mucosa present, Yes lip normal, Yes tongue normal, Yes Normal salivary glands and ducts present, Yes oropharynx normal and Yes moist mucous membranes Teeth and gingiva: dentition normal Throat: posterior oropharynx normal, tonsils normal and uvula midline Eyes: General: appearance normal, both eyes and all related structures Alignment and Position: alignment normal and position normal Periorbital: periorbital findings normal Eyelids: eyelids normal Pupils: Equal, round and reactive pupils present Neck: Neck: normal visual inspection, full ROM, no lymphadenopathy and supple Chest: Chest palpation & inspection: normal inspection of the chest and normal palpation of entire chest wall Resp: Effort & Inspection: normal respiratory effort and able to speak in complete sentences Auscultation: clear to auscultation bilaterally, no aircraft navigator ckles, no rales, no rhonchi and no wheezes Cardio: Rate: tachycardic Rhythm: regular rhythm Heart sounds: S1 normal heart sound present and S2 normal heart sound present GI: Inspection: normal to inspection Skin: General skin exam: normal color and no rashes or lesions noted Neuro: General: patient oriented x3 and moves all extremities Cranial nerves: Yes Equal, round and reactive pupils present Speech: normal speech Gait exam (Neuro): Normal gait present Extrem: General: normal to inspection, full ROM and no edema Psych: Appearance: grossly normal and well kempt Mental Status: mental status grossly normal Speech and movement: Normal speech and movement present Affect: normal affect Attitude: cooperative Thought process: Normal thought process present Course Course Emergency Course: Discharge instructions reviewed with patient, as well as provided in writing per nursing staff. The instructions also include specific and strict return/GO TO THE ER as well as f/u information. All questions have been answered, and the patient deny any further questions with discharge and discharge plan. Portions of this record may have been created with voice recognition software Level of Care: Express Care Visit Vital Signs Vital signs: Vital Signs Temperature 36.7 C 05/23/25 09:15 Pulse Rate 103 H 05/23/25 09:15 Respiratory Rate 18 05/23/25 09:15 Blood Pressure 112/72 05/23/25 09:15 Pulse Oximetry 98 05/23/25 09:15 Oxygen Delivery Room Air 05/23/25 09:15 Temperature 36.7 C 05/23/25 09:15 Pulse Rate 103 H 05/23/25 09:15 Respiratory Rate 18 05/23/25 09:15 Blood Pressure 112/72 05/23/25 09:15 Pulse Oximetry 98 05/23/25 09:15 Oxygen Delivery Room Air 05/23/25 09:15 Reviewed MDM - URI/Sore Throat MDM Narrative Medical decision making narrative: Will refill patient's albuterol inhaler and send in Claritin and Flonase serum safe medications Pt well hydrated appearing, in no respiratory distress, hemodynamically stable. Recommend supportive care. The patient is stable at time of discharge the clinical impression was discussed and the patient was given the opportunity to ask questions, which were addressed as completely as possible given the information available at present. Anticipatory guidance and return to care precautions were discussed and the importance of primary care follow-up was stressed and encouraged. The patient voiced understanding of the plan, indications to return, and the need for follow-up. Exam findings show no acute concerns or changes Patient is appropriate for outpatient treatment and follow-up. Differential diagnosis considered: [place] virus, strep pharyngitis, allergic rhinitis, upper respiratory tract infection, sinusitis, rhinosinusitis, nasopharyngitis. viral pharyngitis, otitis media, otitis externa, otitis effusion, foreign body, cerumen impaction, viral syndrome, and influenza.? Medical Records Attestation: I reviewed the patient's medical records. Lab Data Attestation: I reviewed the patient's lab results. Labs: Lab Results 05/23/25 05/23/25 Range/Units 09:24 09:32 POC Influenza A Ag Negative (Negative) POC Influenza B Ag Negative (Negative) POC SARS CoV-2 Ag Negative (Negative) POC Grp A Strep Screen Negative (Negative) Discharge Plan Discharge Clinical Impression: Upper respiratory infection Qualifiers: URI type: unspecified viral URI Qualified Code(s): J06.9 - Acute upper respiratory infection, unspecified Patient Disposition: Home Condition: Stable Instructions: Upper Respiratory Infection (ED) Additional Instructions: Your rapid strep swab was negative today at [facility]. A throat culture will be sent to the laboratory for further testing. If the test is positive, you will receive a phone call within 48 hours and an appropriate antibiotic will be initiated at that time. Your Covid and flu are both negative Your symptoms are likely due to a viral illness, which is not treated with antibiotics. Viral symptoms can be present for up to a few weeks. -Alternate Tylenol and Motrin per package directions for fever or pain: Tylenol 650-1000mg by mouth every 4-6 hours. Do not exceed 4000mg in 24 hours. 8 AM: Tylenol 2 PM: Tylenol 8 PM: Tylenol 2 AM: Tylenol -Antihistamine medication such as Benadryl at night and Zyrtec/Claritin/Rina during the day can help improve symptoms. -Use Flonase twice a day for 5 days then daily to help reduce the inflammation and dry up your sinuses. -Eat and drink things that are easy to swallow, like tea or soup, or popsicles. -Oral rinses such as: Salt water gargles and/or may use topical anesthetic (eg. Chloraseptic spray) or lozenges to relieve dryness or throat pain). -Frequent hand washing or hand fibreglass lay up worker is one of the best ways to prevent spread of infection. -Using a vaporizer or humidifier at night will also help thin secretions and help with coughing up phlegm. Call your Primary Care Doctor and make a follow-up appointment in 3 days. If your cough worsens, you develop a fever greater than 103, you develop shaking chills, a fast heartbeat, trouble breathing and/or feel you are are breathing much faster than usual, call your Primary Care Doctor or go to the ER. Safe Medications During For Sleep Benadryl (diphenhydramine), Tylenol PM, Unisom (doxylamine), Melatonin Tylenol (acetaminophen) For Fever, Pain, Note: DO NOT take aspirin or ibuprofen unless directed by your provider. Headache, or Muscle Soreness For Morning Sickness Vitamin B6 (50mg three times a day) - works best when also taken with Unisom (1/2 tablet once or twice a day), Emetrol, Benadryl (diphenhydramine) (25-50mg), motion sickness medication such as Dramamine For Nausea, Upset Stomach, or Gas Emetrol, Mylanta (aluminum hydroxide), Gas X (simethicone) For Heartburn, Acid Reflux, and Indigestion Tums (calcium carbonate) (no more than 1,000mg/day), Pepcid AC (famotidine), Mylanta, Maalox Note: Non-medication options include eating frequent, smaller meals, avoid laying down for 1 hour after eating, and avoiding spicy or acidic foods. For Constipation Fiber source such as Metamucil or Citrucel, stool softener such as Colace (docusate), glycerin suppository, Milk of Magnesia, Senokot, Miralax Note: Non-medication options include increasing water and vegetable intake. For Hemorrhoids Fiber supplements, Tucks pads, witch zarina compress, Anusol, Preparation H Note: Non-medication options include increasing your water intake. For Cold or Other Upper Respiratory Illnesses Nasal saline spray, nasal steroid spray (oxymetazoline hydrochloride), Benadryl (diphenhydramine), Afrin, Zyrtec (cetirizine), Sudafed (pseudoephedrine), Tylenol Cold and Sinus (acetaminophen and pseudoephedrine) Note: Avoid pseudoephedrine in the first trimester of . If necessary after first trimester, limit to 2-3 days. For Cough Cough drops, Robitussin DM (dextromethorphan and pseudoephedrine), Dimetapp (brompheniramine and pseudoephedrine) For Sore Throat Chloraseptic throat spray, Tylenol (acetaminophen), Luden?s throat drops Note: Non-medication options include gargling with salt water. For Diarrhea Imodium AD (loperamide) For Yeast Infection Monistat or other vaginal yeast creams For Allergies Benadryl (diphenhydramine), Claritin (loratadine), Zyrtec (cetirizine) Patient Language: Jordanian Prescriptions: New albuterol sulfate 90 mcg/actuation HFA aerosol inhaler 2 puff inhalation QID PRN (Reason: shortness of breath or wheezing) Qty: 6.7 0RF fluticasone propionate [Flonase Allergy Relief] 50 mcg/actuation spray,suspension 1 spray intranasal DAILY Qty: 16 0RF Rx Instructions: administer into each nostril loratadine 10 mg tablet 10 mg PO DAILY Qty: 30 0RF (DME) Aerochamber MV Spacer See Rx Instructions .Route Qty: 1 0RF Rx Instructions: As directed No Action insulin glargine [Basaglar KwikPen U-100 Insulin] 100 unit/mL (3 mL) insulin pen 20 unit SUBCUT DIRECTED Humulin N NPH U-100 Insulin 100 unit/mL suspension SUBCUT Follow-up/Referrals: Kurt,Renzo Pathak MD [Primary Care Provider, Unknown] - 3 Days Time of Disposition: 09:48
[2025-05-23 09:15] VITALS: BP 112/72; PULSE 103; RESP 18; TEMP 36.7; O2SAT 98
--- OUTSIDE RECORDS SUMMARY | 2025-05-23 09:19 | XMS_ITS | Encounter Summary ---
Author Organization [facility] Health Address [address] [place] [address] Care Team Providers Care Business Continuity Coordinator Name Role Phone None, Physician Primary Care Provider Unavailabl e Encounter Details Date Type Department Care Team (Late st Contact Info) Description 04/10/2023 [facility] Outpatient Visit [facility] Health Cancer Care [id number] [place] [phone] [place] Elaine [place] [id number] [place] [phone] Social History Tobacco Use Types Packs/Day [...] slept in a usp (including now)? 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
--- OUTSIDE RECORDS SUMMARY | 2025-05-23 09:19 | XMS_ITS | Clinical Summary ---
Author Organization [facility] Address [address] [place] [address] Care Team Providers Care Roller Man Name Role Phone None, Physician Primary Care Provider Unavailabl e Source Comments [facility],non-owned Affiliates and Associated Physician Practices is amultiple site organization consisting of ambulatory clinics and hospital sitesin [place], [place], [place] and [place]. This disclosure is being madepursuant to the Care Everywhere program and may not contain all information available regarding this patient. Last updated 18.[facility] Allergies Active Allergy Reactions Criticality Noted Date [...] migh t be different from the original. [employer] form completed. Diapers given. 12/29/2019 [...] 08/31/2019 Immunizations Immunization Administration Dates Next Due [employer] BIVALENT 12Y+ 30mcg/0.3ML 2 DTAP, HISTORIC VACCINE [...] (IIV4) 04/02/2023,06/23/2022,08/30/2019 INFLUENZA VACCINE, RECOM-PEACOCK, TRIV. (FLUBLOCK TRIVALENT RIV3) 07/25/2015,06/04/2010 MENINGOCOCCAL ACWY (MCV4P) VAC IM 05/23/2008 [...] place to sleep or slept in a care home (including now)? Patient refused 05/14/2022 [place] Depression Scale Answer Date Recorded [place] Depression Scale Total 0 06/23/2022 Last EPDS Self Harm Result Not on file 06/23 Comments No Sex and Gender Information Value Date Recorded Sex Assigned at Not on file Legal Sex Female 11:42 AM [employer] Gender Identity Not on file Sexual Orientation Not on file Last Filed Vital Signs Vital Sign Reading Time Taken Comments Blood Pressure 131/95 09/16/2023 3:00 PM [employer] Pulse 100 09/16/2023 3:04 PM [employer] Temperature 36.6 C (97.8 F) 09/16/2023 11:57 AM [employer] Respiratory Rate 20 09/16/2023 3:04 PM [employer] Oxygen Saturation 100% 09/16/2023 3:04 PM [employer] Inhaled Oxygen Concentration 21% 04/16/2023 1 1:20 [...] series) 11/20/2008 05/23/2008 PAP SMEAR 08/30/2022 08/30/2019 DEPRESSION SCREENING 07/13/2024 COVID-19 VACCINE ( season) 2025 06/23/2022, 03/12/2021, 02/18/2021 INFLUENZA VACCINE (#1) 2025 3, 06/23/2022, 08/30/2019, [...] multigravida PAP THINPREP Routine 08/30/2019 2:06 PM [employer] High risk teen in first trimester from Last 3 Months or Most Recently Relevant to Health Maintenance Results * HIV-1 HIV-2 ANTIBODY + HIV P24 AG PANEL (03/18/2022 1:59 PM CDT) Pathologist [facility] HIV1/2 Ab + P24 Ag Non Reactive Non Reactive 03/18/2022 3:26 PM CDT [facility] Blood BLOOD SPECIMEN / Unknown Venipuncture / Unknown 03/18/2022 1:59 PM CDT 03/18/2022 2:12 PM CDT Narrative [facility] - 03/18/2022 3:26 PM CDT No Laboratory evidence of HIV infection. Sharon Beltran POLITICAL GEOGRAPHER-SIZING SP[facility]ER LAB - CHEMISTRY ORDERAB LES Final Result Performing Organization Address City/[facility]/ZIP Co de Phone Number [facility] [address] [place] [address] * HEPATITIS C ANTIBODY (03/18/2022 1:59 PM CDT) [facility] HCV Antibody Screen Non Reactive Non Reactive 03/18/2022 3:25 PM CDT [facility] Blood BLOOD SPECIMEN / Unknown Venipuncture / Unknown 03/18/2022 1:59 PM CDT 03/18/2022 2:12 PM CDT Narrative [facility] - 03/18/2022 3:25 PM CDT Non Reactive - Antibodies to Hepatitis C virus (HCV) were not detected, result does not exclude early acute HCV infection. Sharon George [employer] POLITICAL GEOGRAPHER-SIZING [facility] LAB - CHEMISTRY ORDERAB LES Final Result Performing Organization Address City/[facility]/ZIP Co de Phone Number [facility] [address] [place], [place] [id number] * PAP THINPREP (08/30/2019 2:06 PM [employer]) Diagnosis Comment 09/02/2019 11:08 AM MANAGER [employer]OYEE [employer]ITS [facility] ([facility]) Comment:NEGATIVE FOR INTRAEP ITHELIAL LESION OR MALIGNANCY. Specimen Adequacy Comment 020 11:08 AM [employer]NA[employer]EFITS [facility] ([facility]) Comment:Satisfactory for adriana luation. No endocervical component is identified. Performed by Comment 09/02/2019 11:08 AM [employer]NA[employer]EFITS [facility] ([facility]) Comment:Lamberto Aleman totechnologist Comment . 09/02/2019 11:08 AM MANAGER [employer]OYEE [employer]EFITS [facility] ([facility]) Note Comment 09/02/2019 11:08 AM [employer]NA[employer]EFITS [facility] ([facility]) Comment: The Pap smear is a screening test designed to aid in the detection of premalignant and malignant conditions of the uterine cervix. It is not a diagnostic procedure and should not be used as the sole means of detecting cervical cancer. Both false-positive and false-negative reports do occur. Pathology/Cytolo gy ENTIRE ENDOCERVIX / Unknown Collection / Unknown 08/30/2019 2:06 PM [employer] 08/30/2019 2:32 PM [employer] Narrative [facility] ([facility]) - 09/02/2019 11:08 AM MANAGER [employer] Performed at: [address] [place] [id number] Alumni Secretary: Diane Rodriguez MD, Phone: [phone] Specimen Comment: Source.............Endocervix Specimen Comment: No. of containers..01 ThinPrep Vial us Genevieve Locke MD LAB - PATHOLOGY/CYTOLOGY ORDER HERNANDEZ Final Result [facility] ([facility]) [address] [place] [address] from Last 3 Months or Most Recently Relevant to Health Maintenance Additional Health Concerns Infection Onset Date Last Indicated MRSA Hx Comment:Nasal; 04/01/2023 04/02/2023 Insurance [facility] Advance Directives * Full Code (Latest Code [...] 4:01 AM 02/17/2020 6:43 PM Care Teams Roller Man Relationship Specialty Start Date End Date None, Physician [address] [place] [address] PCP - General 04/01/23
--- OUTSIDE RECORDS SUMMARY | 2025-05-23 09:19 | XMS_ITS | Clinical Summary ---
Author Organization [facility] Address [address] [place] [address] Care Team Providers Care Agronomy Teacher Name Role Phone Unknown, Notinfile Primary Care [...] 1 4 Active doxycycline (VIBRAMYCIN) 100 mg capsuleIndicati ons:Skin/Soft Tissue Infection Take 1 tablet/capsule (100 mg [...] Scale Insulin Instructions. 15 mL 4 Active cyclobenzaprine (FLEXERIL) 10 mg tablet Take 1 tablet [...] 30 tablet 11 5 02/17/20 26 Active Active Problems Problem Noted Date Diagnosed [...] Encounters Date Type Department Care Team Description 03/16/2025 2:15 PM CDT Office Visit [facility] [address] 4th [address] [place] [phone] Left hip pain (Primary Dx) 03/08/2025 Telephone [facility] [address] [place] [address] 4th Floor [address] [place] [phone] Fiordaliza Dobson RN 02/27/2025 6:40 PM CDT - 02/27/2025 10:48 PM CDT Emergency [facility] Emergency Department [address] [place] [address] Discharge Disposition: Left without being seen 02/27/2025 Patient Self-Triage [facility]/ Physicians [address] [place] [address] Mychart, Generic Provider from Last 3 Months Immunizations Immunization Administration [...] uit: Not Asked; Counseling Given: Not Answered PRAPARE - Transportation Answer Date Re corded In the past 12 months, has l ack of transportation kept you from medical appointments or from getting medications? No 03/13 In the past 12 months, has l ack of transportation kept you from meetings, work, or from getting things needed for daily living? No 03/27/2023 Hunger Vital Sign Answer Date Recorded Within the past 12 months, y ou worried that your food would run out before you got the money to buy more. Never true 03/16/20 25 Within the past 12 months, t he food you bought just didn't last and you didn't have money to get more. Never true 03/16/2025 Personal Safety Answer Date Recorded Have you [...] al Livin g Complications:Pre eclampsia Delivery Location:[facility] 020 34w 3d 1.99 kg (4 lb 6.2 oz) F Vag-S pont Epidur al Complications:Pre eclampsia Delivery Location:[facility]. 021 IAB 8w0 d Last Filed [...] 10/27/2023 04/27/2023, 03/14, 03/27/2023, Additional history exists TSH Level 09/30/2024 10/01/2023, 04/27/2023 Covid-19 Vaccine (4 - 2024-2 6 season) 2025 06/23/2022, 03/12/2021, 02/18/2021 Influenza Vaccine (#1) 2025 3, 06/23/2022, 08/30/2019, Additional history exists eGFR 05/14/2025 [...] BLOOD ORDERABLES Final Result Performing Organization Address [facility]/ZIP Co de Phone Number [facility] [address] [facility] [place] [address] * TSH (04/27/2023 7:18 AM CDT) Thyroid Stimulating Hormone 2.44 0.30 - 4.20 mcIUnit/mL [facility] Blood 04/27/2023 7:18 AM CDT 04/27/2023 10:06 AM CDT Rhoda Tapia MD LAB BLOOD ORDERABLES Final Resu lt Performing Organization Address [facility] Co de Phone Number [facility] Department [place] [address] * (ABNORMAL) Hemoglobin A1c (04/27/2023 7:18 AM CDT) Hgb A1C 8.8(H) 4.0 - 5.6 % [facility] Estimated Average Glucose 206 mg/dL [facility] Comment: The ADA recommends reporting an estimated [...] LAB BLOOD ORDERABLES Final Resu lt [facility] Department [place] [address] from Last 3 Months or Most Recently Relevant to Health Maintenance Insurance [facility] Advance Directives For more information, please contact: [phone] * Full Code (Latest Code Status on File) Date Activated Date Inactivated Comments 03/27/2023 6:22 AM 03/31/2023 6:58 PM Care Teams Agronomy Teacher Relationship Specialty Start Date End Date Unknown, Notinfile PCP - General 12/12/24
[2025-05-23 09:26] LABS: EDSTREPNEGPOS1 Negative (Negative)
[2025-05-23 09:34] LABS: EDCOVIDSCREEN Negative (Negative); EDINFLUASCREEN Negative (Negative); EDINFLUBSCREEN Negative (Negative)
== END 2025-05-23 09:53 | disposition home or self-care (01) ==
PROVIDERS: Emergency Provider Nurse Practitioner Family; PCP Family Medicine
DX: O99.511 Diseases of the respiratory system complicating pregnancy, first trimester (principal); J06.9 Acute upper respiratory infection, unspecified; Z20.822 Contact with and (suspected) exposure to COVID-19; O24.011 Pre-existing type 1 diabetes mellitus, in pregnancy, first trimester; E10.9 Type 1 diabetes mellitus without complications; Z3A.00 Weeks of gestation of pregnancy not specified; Z79.4 Long term (current) use of insulin; J45.909 Unspecified asthma, uncomplicated; O99.331 Smoking (tobacco) complicating pregnancy, first trimester; F17.200 Nicotine dependence, unspecified, uncomplicated
CPT/HCPCS: 87081; 87426; 87804; 87880; 99213; G0463